=== PATIENT | male | born 1980 | race Caucasian/White ===

== ENCOUNTER 2019-01-04 22:41 | Inpatient (IN) | payer OTHER | END 2019-01-10 17:29 | disposition other institution (70) | LOC: YASAS 22:41 → Y6N 01-05 01:21 ==

== ENCOUNTER 2019-01-10 18:13 | Inpatient (IN) | payer OTHER ==
--- NOTE | 2019-01-10 21:15 | HP ---
[facility] Rehab Assess/Revision - Admission History Admitted to Rehab from: [facility] [address] [facility] Date of Admission to Rehab: - Findings Detox History & Physical reviewed: Yes Concur with findings: Yes Comments/Additional Findings: 38 years old male with a long history of heroin and alcohol dependence being admitted post detox in early remission. Patient w/ multiple detoxes w/ insignificant periods of sobriety. Hx of seizures, Hep. C, hypertension and depression. Inpatient Rehab Admission - Rehab Decision to Admit Inpatient rehab admission?: Yes - Initial Determination Are CD services needed?: Yes Free of communicable disease: Yes Not in need of hospitalization: Yes - Rehab Admission Criteria Previous failed treatment: Yes Poor recovery environment: Yes Comorbidities: Yes Lacks judgement: No Patient is meeting Inpatient Rehab admission criteria:: Yes
[2019-01-10] MEDS ORDERED: guaiFENesin 200 MG/10 ML 10 ML UNIT-DOSE CUPS PO PRN (21:26)
[2019-01-10] MEDS ORDERED: MAGNESIUM CITRATE 300 ML BOTTLE PO PRN (21:26)
[2019-01-10] MEDS ORDERED: LOPERAMIDE HCL 2 MG CAPSULE PO PRN (21:26)
[2019-01-10] MEDS ORDERED: MAGNESIUM HYDROX 2400MG/30ML ORAL SUSPENSION 30 ML CUP PO PRN (21:26)
[2019-01-10] MEDS ORDERED: P-EPHED 60MG/TRIPROLIDI 2.5MG TABLET PO PRN (21:26)
[2019-01-10] MEDS ORDERED: MENTHOL/PHENOL 1 EACH UD MM PRN (21:26)
[2019-01-10] MEDS: THIAMINE HCL 100 MG TABLET (FP) PO SCH (21:53)
[2019-01-10] MEDS: MELATONIN 5 MG TABLETS PO PRN (21:54)
[2019-01-10] MEDS: hydrOXYzine PAMOATE 25 MG CAPSULE (FP) PO PRN (21:55)
[2019-01-10] MEDS ORDERED: buPROPion HCL 75 MG TABLET PO SCH (22:00)
[2019-01-10] MEDS ORDERED: PHENobarbital 30 MG TABLET PO SCH (22:00)
[2019-01-10] MEDS: PHENobarbital 30 MG TABLET PO SCH (23:22)
[2019-01-10] MEDS: QUEtiapine FUMARATE 200 MG TABLET PO SCH (23:22)
[2019-01-10] MEDS: ACETAMINOPHEN 325 MG TABLET (FP) PO PRN (23:43)
[2019-01-11] MEDS ORDERED: METHADONE HCL 40 MG DISPERSABLE TABLET PO SCH (06:00)
[2019-01-11] MEDS ORDERED: METHADONE HCL 10 MG TABLET ONE (06:07)
[2019-01-11] MEDS ORDERED: METHADONE HCL 40 MG DISPERSABLE TABLET ONE (06:08)
[2019-01-11] MEDS: METHADONE 40 MG, METHADONE 30 MG PO SCH (07:05)
[2019-01-11] MEDS: ACETAMINOPHEN 325 MG TABLET (FP) PO PRN ×3 (07:08→19:26)
[2019-01-11] MEDS: NICOTINE 14 MG/24 HOURS TOPICAL PATCH TD SCH (09:38)
[2019-01-11] MEDS: PRENATAL VITAMINS W/ FOLIC ACID TABLET (FP) PO SCH (09:38)
[2019-01-11] MEDS: QUEtiapine FUMARATE 200 MG TABLET PO SCH ×2 (09:38→21:20)
[2019-01-11] MEDS: IBUPROFEN 400 MG TABLET (FP) PO PRN (09:39)
[2019-01-11] MEDS: PHENobarbital 30 MG TABLET PO SCH ×2 (09:41→21:20)
[2019-01-11] MEDS: ONDANSETRON 4 MG TABLET PO PRN ×2 (10:00→17:37)
[2019-01-11] MEDS: MAG HYDROX/AL HYDROX/SIMETH 30 ML UNIT-DOSE CUP PO PRN ×2 (12:54→19:26)
[2019-01-11] MEDS: hydrOXYzine PAMOATE 25 MG CAPSULE (FP) PO PRN ×2 (13:28→21:20)
[2019-01-11] MEDS: THIAMINE HCL 100 MG TABLET (FP) PO SCH (21:20)
[2019-01-11] MEDS: MELATONIN 5 MG TABLETS PO PRN (21:21)
[2019-01-12] MEDS ORDERED: METHADONE HCL 40 MG DISPERSABLE TABLET ONE (04:07)
[2019-01-12] MEDS ORDERED: METHADONE HCL 10 MG TABLET ONE (04:07)
[2019-01-12] MEDS: hydrOXYzine PAMOATE 25 MG CAPSULE (FP) PO PRN ×3 (06:44→17:19)
[2019-01-12] MEDS: METHADONE 40 MG, METHADONE 30 MG PO SCH (06:44)
[2019-01-12] MEDS: PRENATAL VITAMINS W/ FOLIC ACID TABLET (FP) PO SCH (10:19)
[2019-01-12] MEDS: QUEtiapine FUMARATE 200 MG TABLET PO SCH ×2 (10:19→17:19)
[2019-01-12] MEDS: NICOTINE 14 MG/24 HOURS TOPICAL PATCH TD SCH (10:20)
[2019-01-12] MEDS: PHENobarbital 30 MG TABLET PO SCH ×2 (10:22→21:15)
[2019-01-12] MEDS: ACETAMINOPHEN 325 MG TABLET (FP) PO PRN ×2 (10:24→15:03)
--- NOTE | 2019-01-12 10:49 | PN ---
[facility] Progress Note Note: Pt is a 38 y/o male admitted to rehab from [address] on 01/10/19 for heroin, Benzo,cocaine,alcohol k2, marijuana and on Methadone 70 mg po daily([facility]- [facility]). Pt is currently c/o w/s of nausea, vomiting,stomach cramps,body aches and anxiety. Reports he wants to see psych MD for readjustment of his meds. Pt reports hx lactose intolerance. Pt reports dry abrasions to both heels from shoes rubbing against skin because "I was walking a lot when i was on the street ". vital Signs - 24 hr 01/12/19 01/12/19 01/12/19 00:30 03:30 06:57 Temperature 97.5 F L Pulse Rate 77 Respiratory 18 18 18 Rate Blood Pressure 115/74 Alert o x 3 Nad Oob ambulating with steady gait Cardiac:s1 s2, rrr Lung:cta,corwin. Abdomen:soft,+bs,nt,nd Extremities/Skin:Full ROM. no edema; both heels with slight red areas of abrasions, dry, no drainage/pus noted. Plan:D/w Zonfran sl prn Robaxin 500 mg po tid prn for muscle spasms Warm tea as tolerated Lactaid milk with meals as needed Bacitracin ointment, apply to both heels as directed.
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
[2019-01-12] MEDS: METHOCARBAMOL 500 MG TABLET PO PRN ×2 (11:42→21:21)
[2019-01-12] MEDS: ONDANSETRON 4 MG TABLET PO PRN (11:43)
[2019-01-12] MEDS: BACITRACIN 15 GM TUBE TOPICAL OINTMENT TP SCH ×2 (12:14→21:14)
[2019-01-12] MEDS: MAG HYDROX/AL HYDROX/SIMETH 30 ML UNIT-DOSE CUP PO PRN (13:36)
[2019-01-12] MEDS: QUEtiapine FUMARATE 400 MG TABLET PO SCH (21:15)
[2019-01-12] MEDS: MELATONIN 5 MG TABLETS PO PRN (21:15)
[2019-01-12] MEDS: THIAMINE HCL 100 MG TABLET (FP) PO SCH (21:16)
[2019-01-13] MEDS ORDERED: METHADONE HCL 10 MG TABLET ONE (05:48)
[2019-01-13] MEDS ORDERED: METHADONE HCL 40 MG DISPERSABLE TABLET ONE (05:48)
[2019-01-13] MEDS: hydrOXYzine PAMOATE 25 MG CAPSULE (FP) PO PRN ×3 (06:30→18:15)
[2019-01-13] MEDS: METHADONE 40 MG, METHADONE 30 MG PO SCH (06:30)
[2019-01-13] MEDS: BACITRACIN 15 GM TUBE TOPICAL OINTMENT TP SCH ×2 (10:10→21:16)
[2019-01-13] MEDS: METHOCARBAMOL 500 MG TABLET PO PRN ×2 (10:15→21:19)
[2019-01-13] MEDS: NICOTINE 14 MG/24 HOURS TOPICAL PATCH TD SCH (10:15)
[2019-01-13] MEDS: PRENATAL VITAMINS W/ FOLIC ACID TABLET (FP) PO SCH (10:15)
[2019-01-13] MEDS: QUEtiapine FUMARATE 200 MG TABLET PO SCH ×2 (10:16→17:40)
[2019-01-13] MEDS: PHENobarbital 30 MG TABLET PO SCH ×2 (11:38→21:17)
[2019-01-13] MEDS: ACETAMINOPHEN 325 MG TABLET (FP) PO PRN (12:29)
[2019-01-13] MEDS: IBUPROFEN 400 MG TABLET (FP) PO PRN (14:47)
--- NOTE | 2019-01-13 15:57 | PN ---
[facility] Progress Note Note: Pt c/o lower back pain and wants analgesic pain rub. Vital Signs - 24 hr 01/13/19 01/13/19 01/13/19 00:30 03:30 07:22 Temperature 67.4 F L Pulse Rate 83 Respiratory 18 18 18 Rate Blood Pressure 109/79 A/P Lower back pain Analgesic balm apply to affected area as directed Lidocaine patch 5% apply as directed.
[2019-01-13] MEDS: LIDOCAINE 5% TOPICAL PATCH TP SCH (18:17)
[2019-01-13] MEDS: THIAMINE HCL 100 MG TABLET (FP) PO SCH (21:17)
[2019-01-13] MEDS: LIDOCAINE PATCH REMOVAL MC SCH (21:17)
[2019-01-13] MEDS: QUEtiapine FUMARATE 400 MG TABLET PO SCH (21:17)
[2019-01-13] MEDS: MELATONIN 5 MG TABLETS PO PRN (21:18)
[2019-01-13] MEDS: HALOPERIDOL 5 MG TABLET (FP) PO PRN (21:19)
[2019-01-13] MEDS: METHYL SALICYLATE/MENTHOL OINT 30 GM TUBE TP SCH (22:17)
[2019-01-14] MEDS ORDERED: METHADONE HCL 10 MG TABLET ONE (04:09)
[2019-01-14] MEDS ORDERED: METHADONE HCL 40 MG DISPERSABLE TABLET ONE (04:09)
[2019-01-14] MEDS: METHOCARBAMOL 500 MG TABLET PO PRN ×2 (06:50→21:19)
[2019-01-14] MEDS: hydrOXYzine PAMOATE 25 MG CAPSULE (FP) PO PRN ×2 (06:50→15:53)
[2019-01-14] MEDS: METHADONE 40 MG, METHADONE 30 MG PO SCH (06:51)
[2019-01-14] MEDS: PHENobarbital 30 MG TABLET PO SCH ×2 (09:56→21:19)
[2019-01-14] MEDS: QUEtiapine FUMARATE 200 MG TABLET PO SCH ×2 (09:56→17:30)
[2019-01-14] MEDS: PRENATAL VITAMINS W/ FOLIC ACID TABLET (FP) PO SCH (09:56)
[2019-01-14] MEDS: LIDOCAINE 5% TOPICAL PATCH TP SCH (09:57)
[2019-01-14] MEDS: NICOTINE 14 MG/24 HOURS TOPICAL PATCH TD SCH (09:57)
[2019-01-14] MEDS: BACITRACIN 15 GM TUBE TOPICAL OINTMENT TP SCH ×2 (09:58→21:17)
[2019-01-14] MEDS: IBUPROFEN 400 MG TABLET (FP) PO PRN ×2 (12:29→18:43)
[2019-01-14] MEDS: ACETAMINOPHEN 325 MG TABLET (FP) PO PRN (15:53)
[2019-01-14] MEDS: QUEtiapine FUMARATE 400 MG TABLET PO SCH (21:18)
[2019-01-14] MEDS: METHYL SALICYLATE/MENTHOL OINT 30 GM TUBE TP SCH (21:18)
[2019-01-14] MEDS: LIDOCAINE PATCH REMOVAL MC SCH (21:19)
[2019-01-14] MEDS: MELATONIN 5 MG TABLETS PO PRN (21:20)
[2019-01-14] MEDS: THIAMINE HCL 100 MG TABLET (FP) PO SCH (21:20)
[2019-01-14] MEDS: HALOPERIDOL 5 MG TABLET (FP) PO PRN (21:21)
[2019-01-15] MEDS ORDERED: METHADONE HCL 40 MG DISPERSABLE TABLET ONE (05:50)
[2019-01-15] MEDS ORDERED: METHADONE HCL 10 MG TABLET ONE (05:50)
[2019-01-15] MEDS: METHOCARBAMOL 500 MG TABLET PO PRN ×2 (06:49→21:11)
[2019-01-15] MEDS: hydrOXYzine PAMOATE 25 MG CAPSULE (FP) PO PRN ×3 (06:49→17:05)
[2019-01-15] MEDS: METHADONE 40 MG, METHADONE 30 MG PO SCH (06:49)
[2019-01-15] MEDS: QUEtiapine FUMARATE 200 MG TABLET PO SCH ×2 (09:30→17:05)
[2019-01-15] MEDS: PHENobarbital 30 MG TABLET PO SCH ×2 (09:30→21:09)
[2019-01-15] MEDS: PRENATAL VITAMINS W/ FOLIC ACID TABLET (FP) PO SCH (09:30)
[2019-01-15] MEDS: NICOTINE 14 MG/24 HOURS TOPICAL PATCH TD SCH (09:31)
[2019-01-15] MEDS: LIDOCAINE 5% TOPICAL PATCH TP SCH (09:31)
[2019-01-15] MEDS: IBUPROFEN 400 MG TABLET (FP) PO PRN ×2 (09:32→16:39)
[2019-01-15] MEDS: BACITRACIN 15 GM TUBE TOPICAL OINTMENT TP SCH ×2 (09:33→21:12)
[2019-01-15] MEDS: ACETAMINOPHEN 325 MG TABLET (FP) PO PRN (12:31)
[2019-01-15] MEDS: THIAMINE HCL 100 MG TABLET (FP) PO SCH (21:09)
[2019-01-15] MEDS: QUEtiapine FUMARATE 400 MG TABLET PO SCH (21:09)
[2019-01-15] MEDS: MELATONIN 5 MG TABLETS PO PRN (21:11)
[2019-01-15] MEDS: HALOPERIDOL 5 MG TABLET (FP) PO PRN (21:11)
[2019-01-15] MEDS: METHYL SALICYLATE/MENTHOL OINT 30 GM TUBE TP SCH (21:12)
[2019-01-15] MEDS: LIDOCAINE PATCH REMOVAL MC SCH (21:13)
[2019-01-16] MEDS ORDERED: METHADONE HCL 10 MG TABLET ONE (05:54)
[2019-01-16] MEDS ORDERED: METHADONE HCL 40 MG DISPERSABLE TABLET ONE (05:54)
[2019-01-16] MEDS: METHADONE 40 MG, METHADONE 30 MG PO SCH (06:26)
[2019-01-16] MEDS: METHOCARBAMOL 500 MG TABLET PO PRN ×2 (06:27→21:10)
[2019-01-16] MEDS: hydrOXYzine PAMOATE 25 MG CAPSULE (FP) PO PRN ×3 (06:27→17:27)
[2019-01-16] MEDS: NICOTINE 14 MG/24 HOURS TOPICAL PATCH TD SCH (09:50)
[2019-01-16] MEDS: LIDOCAINE 5% TOPICAL PATCH TP SCH (09:50)
[2019-01-16] MEDS: PRENATAL VITAMINS W/ FOLIC ACID TABLET (FP) PO SCH (09:50)
[2019-01-16] MEDS: QUEtiapine FUMARATE 200 MG TABLET PO SCH ×2 (09:50→17:27)
[2019-01-16] MEDS: PHENobarbital 30 MG TABLET PO SCH ×2 (09:50→21:08)
[2019-01-16] MEDS: BACITRACIN 15 GM TUBE TOPICAL OINTMENT TP SCH ×2 (09:51→21:11)
[2019-01-16] MEDS: NICOTINE POLACRILEX 2 MG GUM BUC PRN (09:54)
[2019-01-16] MEDS: IBUPROFEN 400 MG TABLET (FP) PO PRN ×2 (12:41→21:11)
[2019-01-16] MEDS: ACETAMINOPHEN 325 MG TABLET (FP) PO PRN (17:28)
[2019-01-16] MEDS: QUEtiapine FUMARATE 400 MG TABLET PO SCH (21:08)
[2019-01-16] MEDS: THIAMINE HCL 100 MG TABLET (FP) PO SCH (21:08)
[2019-01-16] MEDS: HALOPERIDOL 5 MG TABLET (FP) PO PRN (21:10)
[2019-01-16] MEDS: LIDOCAINE PATCH REMOVAL MC SCH (21:11)
[2019-01-16] MEDS: MELATONIN 5 MG TABLETS PO PRN (21:11)
[2019-01-16] MEDS: METHYL SALICYLATE/MENTHOL OINT 30 GM TUBE TP SCH (21:13)
[2019-01-17] MEDS ORDERED: METHADONE HCL 10 MG TABLET ONE (05:45)
[2019-01-17] MEDS ORDERED: METHADONE HCL 40 MG DISPERSABLE TABLET ONE (05:45)
[2019-01-17] MEDS: hydrOXYzine PAMOATE 25 MG CAPSULE (FP) PO PRN ×4 (06:42→21:13)
[2019-01-17] MEDS: METHADONE 40 MG, METHADONE 30 MG PO SCH (06:43)
[2019-01-17] MEDS: METHOCARBAMOL 500 MG TABLET PO PRN ×2 (06:43→21:13)
[2019-01-17] MEDS: BACITRACIN 15 GM TUBE TOPICAL OINTMENT TP SCH ×2 (11:16→21:11)
[2019-01-17] MEDS: PHENobarbital 30 MG TABLET PO SCH ×2 (11:17→21:12)
[2019-01-17] MEDS: PRENATAL VITAMINS W/ FOLIC ACID TABLET (FP) PO SCH (11:17)
[2019-01-17] MEDS: QUEtiapine FUMARATE 200 MG TABLET PO SCH ×2 (11:20→17:28)
[2019-01-17] MEDS: NICOTINE 14 MG/24 HOURS TOPICAL PATCH TD SCH (11:20)
[2019-01-17] MEDS: LIDOCAINE 5% TOPICAL PATCH TP SCH (11:21)
[2019-01-17] MEDS: IBUPROFEN 400 MG TABLET (FP) PO PRN ×2 (11:22→17:28)
[2019-01-17] MEDS: ACETAMINOPHEN 325 MG TABLET (FP) PO PRN (14:34)
[2019-01-17] MEDS: NICOTINE POLACRILEX 2 MG GUM BUC PRN (17:28)
[2019-01-17] MEDS: METHYL SALICYLATE/MENTHOL OINT 30 GM TUBE TP SCH (21:11)
[2019-01-17] MEDS: LIDOCAINE PATCH REMOVAL MC SCH (21:12)
[2019-01-17] MEDS: QUEtiapine FUMARATE 400 MG TABLET PO SCH (21:12)
[2019-01-17] MEDS: THIAMINE HCL 100 MG TABLET (FP) PO SCH (21:13)
[2019-01-17] MEDS: HALOPERIDOL 5 MG TABLET (FP) PO PRN (21:13)
[2019-01-17] MEDS: MELATONIN 5 MG TABLETS PO PRN (21:13)
[2019-01-18] MEDS ORDERED: METHADONE HCL 10 MG TABLET ONE (05:12)
[2019-01-18] MEDS ORDERED: METHADONE HCL 40 MG DISPERSABLE TABLET ONE (05:12)
[2019-01-18] MEDS ORDERED: METHADONE HCL 10 MG TABLET PO SCH (06:00)
[2019-01-18] MEDS: hydrOXYzine PAMOATE 25 MG CAPSULE (FP) PO PRN ×4 (06:34→21:12)
[2019-01-18] MEDS: METHOCARBAMOL 500 MG TABLET PO PRN ×2 (06:34→21:12)
[2019-01-18] MEDS: METHADONE 40 MG, METHADONE 30 MG PO SCH (06:34)
[2019-01-18] MEDS: QUEtiapine FUMARATE 200 MG TABLET PO SCH ×2 (10:00→17:20)
[2019-01-18] MEDS: BACITRACIN 15 GM TUBE TOPICAL OINTMENT TP SCH ×2 (10:00→21:10)
[2019-01-18] MEDS: PRENATAL VITAMINS W/ FOLIC ACID TABLET (FP) PO SCH (10:00)
[2019-01-18] MEDS: PHENobarbital 30 MG TABLET PO SCH ×2 (10:01→21:11)
[2019-01-18] MEDS: IBUPROFEN 400 MG TABLET (FP) PO PRN (10:01)
[2019-01-18] MEDS: NICOTINE 14 MG/24 HOURS TOPICAL PATCH TD SCH (10:02)
[2019-01-18] MEDS: LIDOCAINE 5% TOPICAL PATCH TP SCH (10:02)
--- NOTE | 2019-01-18 15:40 | PN ---
[facility] Progress Note Note: Pt reports he wants to be prescribed Klonopin because he takes it as well as his Phenobarbital. Pt told the nurse he is also on Gabapentin 500 mg po Q8H. Pt is currently on Phenobarbital 90 mg po bid. Pt has no Klonopin indicated in his home meds and no meds were posted on outside pharmacy when reviewed. Pt has been asked to provide staff with name and number of his prescriber and home pharmacy for verification but patient did not give any information. Pt was asked if he brought his Klonopin on admission but pt reports he "did not" and asked him where he had it and he replied "outside of here". Pt is a poor historian and uncooperative in providing information for verification of his medications. This machine sign writer reviewed pt's detox meds on and there was no klonopin recorded. Vital Signs - 24 hr 01/18/19 01/18/19 01/18/19 00:30 03:30 06:39 Temperature 97.8 F Pulse Rate 64 Respiratory 18 18 20 Rate Blood Pressure 120/84 Alert o x 3 vss oob ambulating with steady gait A/P Hx ADHD Seizure disorder(On medication) Anxiety Disorder s/p Detox Will follow up after pt furnishes pertinent information for verification. Repeat Phenobarbital level on 01/19/19 a.m. Monitor pt safety
[2019-01-18] MEDS: ACETAMINOPHEN 325 MG TABLET (FP) PO PRN (17:20)
[2019-01-18] MEDS: NICOTINE POLACRILEX 2 MG GUM BUC PRN (18:01)
[2019-01-18] MEDS: METHYL SALICYLATE/MENTHOL OINT 30 GM TUBE TP SCH (21:10)
[2019-01-18] MEDS: LIDOCAINE PATCH REMOVAL MC SCH (21:10)
[2019-01-18] MEDS: QUEtiapine FUMARATE 400 MG TABLET PO SCH (21:11)
[2019-01-18] MEDS: HALOPERIDOL 5 MG TABLET (FP) PO PRN (21:12)
[2019-01-18] MEDS: MELATONIN 5 MG TABLETS PO PRN (21:12)
[2019-01-18] MEDS: THIAMINE HCL 100 MG TABLET (FP) PO SCH (21:12)
[2019-01-19] MEDS ORDERED: METHADONE HCL 10 MG TABLET ONE (04:34)
[2019-01-19] MEDS ORDERED: METHADONE HCL 40 MG DISPERSABLE TABLET ONE (04:34)
[2019-01-19] MEDS: METHOCARBAMOL 500 MG TABLET PO PRN (07:26)
[2019-01-19] MEDS: hydrOXYzine PAMOATE 25 MG CAPSULE (FP) PO PRN (07:26)
[2019-01-19] MEDS: METHADONE 40 MG, METHADONE 30 MG PO SCH (07:26)
[2019-01-19 07:35] VITALS: TEMP 97.6
[2019-01-19] MEDS: PRENATAL VITAMINS W/ FOLIC ACID TABLET (FP) PO SCH (09:58)
[2019-01-19] MEDS: PHENobarbital 30 MG TABLET PO SCH ×2 (09:58→22:06)
[2019-01-19] MEDS: QUEtiapine FUMARATE 200 MG TABLET PO SCH ×2 (09:58→18:55)
[2019-01-19] MEDS: LIDOCAINE 5% TOPICAL PATCH TP SCH (09:58)
[2019-01-19] MEDS: NICOTINE 14 MG/24 HOURS TOPICAL PATCH TD SCH (09:59)
[2019-01-19] MEDS: NICOTINE POLACRILEX 2 MG GUM BUC PRN (10:01)
[2019-01-19] MEDS: BACITRACIN 15 GM TUBE TOPICAL OINTMENT TP SCH ×2 (10:02→22:06)
[2019-01-19] MEDS ORDERED: LORazepam 2 MG/ML SDV VIAL ONE (12:15)
[2019-01-19] MEDS ORDERED: LORazepam 2 MG/ML SDV VIAL IM ONE (12:17)
--- NOTE | 2019-01-19 12:27 | PN ---
[facility] Progress Note (SOAP) Subjective: Nurse Called this provider to report that patient was having a seizure. Nurse reports pt was found on the floor by his room door. Saw pt on the floor face up and blinked eyes when called. No movements or activity noted at the time. About 5 minutes later after arrival and patient was helped up to a chair , pt had another episode of generalized shaking of body with blinking of eyes while sitting on the chair. There was no noted post ictal stage, no urinary loss, no rigidity, no foaming/drooling from the mouth on both episodes. No LOC at any episode. Pt is s/p detox from Heroin and alcohol admitted to rehab on 01/10/19 after completing detox on . Pt has a Hx of Seizure disorder and on Phenobarbital 90 mg po bid,last received this morning; Hx of ADHD and Anxiety. Objective: 01/19/19 12:36 Vital Signs - 24 hr 01/19/19 01/19/19 01/19/19 00:30 03:30 07:34 Temperature 97.6 F Pulse Rate 79 Respiratory 18 18 18 Rate Blood Pressure 129/86 01/19/19 12:12 Temperature Pulse Rate 71 Respiratory 18 Rate Blood Pressure 159/94 Repeat Phenobarbital level pending Pulse Ox:96% Room Air(no SOB) General:Alert ox 3 and communicative with staff Cardiac: s1 s2, rrr Lungs:cta,corwin., no wheeze, or rhonchi abdomen:soft, +bs, nt,nd Extremities:No edema. Healing scars, dry, no drainage on both heel sites(seen on admission from shoe blisters per patient) Active Medications Generic Name Dose Route Start Last Admin Trade Name Freq PRN Reason Stop Dose Admin Acetaminophen 650 mg 01/10/19 21:26 01/18/19 17:20 Tylenol - PO 650 mg Q4H PRN Administration FEVER Al Hydroxide/Mg Hydroxide 30 ml 01/10/19 21:26 01/12/19 13:36 Mylanta Oral Suspension - PO 30 ml Q6H PRN Administration DYSPEPSIA Bacitracin 1 applic 01/12/19 12:15 01/19/19 10:02 Bacitracin - TP 1 applic BID LEONELA Administration Bupropion HCl 300 mg 01/11/19 10:00 01/19/19 09:58 Wellbutrin Xl - PO 300 mg DAILY LEONELA Administration Eucalyptus/Menthol/Phenol/Sorbitol 1 each 01/10/19 21:26 Cepastat Lozenge - MM Q4H PRN SORE THROAT Guaifenesin 10 ml 01/10/19 21:26 Robitussin - PO Q6H PRN COUGH Haloperidol 5 mg 01/12/19 11:36 01/18/19 21:12 Haldol - PO 5 mg HS PRN Administration AGITATION Hydroxyzine Pamoate 25 mg 01/10/19 21:26 01/19/19 07:26 Vistaril - PO 25 mg Q4H PRN Administration AGITATION Ibuprofen 400 mg 01/10/19 21:26 01/18/19 10:01 Motrin - PO 400 mg Q6H PRN Administration Pain Level 4-6 Lidocaine 1 patch 01/13/19 16:00 01/19/19 09:58 Lidoderm Patch - TP 1 patch DAILY LEONELA Administration Loperamide HCl 4 mg 01/10/19 21:26 Imodium - PO Q6H PRN DIARRHEA Magnesium Citrate 300 ml 01/10/19 21:26 Citroma - PO Q48H PRN CONSTIPATION Magnesium Hydroxide 30 ml 01/10/19 21:26 Milk Of Magnesia - PO DAILY PRN CONSTIPATION Melatonin 5 mg 01/10/19 22:00 01/18/19 21:12 Melatonin PO 5 mg HS PRN Administration INSOMNIA Methadone HCl 40 mg/ Methadone 70 mg 01/18/19 06:00 01/19/19 07:26 HCl 30 mg PO 01/24/19 05:59 70 mg DAILY@0600 LEONELA Administration Methocarbamol 500 mg 01/12/19 10:34 01/19/19 07:26 Robaxin - PO 500 mg TID PRN Administration MUSCLE SPASMS Methyl Salicylate 1 applic 01/13/19 22:00 01/18/19 21:10 Syed-Herrera - TP 1 applic HS LEONELA Administration Miscellaneous 1 each 01/13/19 22:00 01/18/19 21:10 Lidoderm Patch Removal MC 1 each DAILY@2200 LEONELA Administration Nicotine 14 mg 01/11/19 10:00 01/19/19 09:59 Nicoderm Patch - TD 14 mg DAILY LEONELA Administration Nicotine Polacrilex 2 mg 01/10/19 21:26 01/19/19 10:01 Nicorette Gum - BUC 2 mg Q2H PRN Administration NICOTINE REPLACEMENT RX Ondansetron HCl 4 mg 01/10/19 21:27 01/12/19 11:43 Zofran - PO 4 mg Q6H PRN Administration NAUSEA AND/OR VOMITING Phenobarbital 90 mg 01/17/19 22:00 01/19/19 09:58 Phenobarbital - PO 90 mg BID LEONELA Administration Multivit/Folic Acid/Iron 1 tab 01/11/19 10:00 01/19/19 09:58 Vitamins (Sjr) - PO 1 tab DAILY LEONELA Administration Pseudoephedrine/Triprolidine 1 combo 01/10/19 21:26 Actifed - PO TID PRN NASAL CONGESTION Quetiapine Fumarate 400 mg 01/12/19 22:00 01/18/19 21:11 Seroquel - PO 400 mg HS LEONELA Administration Quetiapine Fumarate 200 mg 01/12/19 17:00 01/19/19 09:58 Seroquel - PO 200 mg BID@1000,1700 LEONELA Administration Thiamine HCl 100 mg 01/10/19 22:00 01/18/19 21:12 Vitamin B1 - PO 100 mg HS LEONELA Administration Pt is Alert,verbal and responded/joined in communications. Able to assist staff/self to sitting then standing position and to chair Upper extremity and feet tremors, no rigidity of muscles noted. No post ictal phase noted Assessment: 01/19/19 12:38 R/o suspected seizure episode Patient on the floor, unwitnessed episode Plan: Transfer to [facility] ER for evaluation, treatment and clearance. Report given to Dr. Christianson. Protocol #1 ordered Ativan 2 mg inj. I.M x 1 given
[2019-01-19 12:48] VITALS: BP 159/94
--- NOTE | 2019-01-19 15:57 | PN ---
[facility] Progress Note Note: Pt was seen by his counselor today at about 11:50 a.m today to discuss aftercare plans(Please see [facility] counselor note by Roslyn Marroquin @11:56) below: Phone Contact: OSCAR spoke with a counselor from [facility] where patient was last placed in regards of patient being able to return there for treatment. OSCAR was informed that patient is not welcome to return to the program due to a number of concern. Patient was caught smoking marijuana on the premises and for a number of other issues, Patient may not return. 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 OSCAR was also informed that patient Hep C medication is currently at [facility] located at [address] [place] [address]. Initialized on 01/19/19 11:56 - END OF NOTE Pt does not appear to be in compliant with any of his treatments and appears to go from one prescriber to another and unable to specify his current medical treatment modalities. Pt will speak to the counselor to plan for a safe discharge after rehab treatment .
[2019-01-19 16:30] VITALS: PULSE 96
[2019-01-19] MEDS: LIDOCAINE PATCH REMOVAL MC SCH (22:06)
[2019-01-19] MEDS: METHYL SALICYLATE/MENTHOL OINT 30 GM TUBE TP SCH (22:06)
[2019-01-19] MEDS: QUEtiapine FUMARATE 400 MG TABLET PO SCH (22:06)
[2019-01-19] MEDS: THIAMINE HCL 100 MG TABLET (FP) PO SCH (22:07)
== END 2019-01-19 23:17 | disposition short-term general hospital (02) | DRG 772 ==
LOC: YASAS 18:13 → Y5N 18:14
PROVIDERS: ADMIT Neuromusculoskeletal Medicine & OMM; ATTEND Neuromusculoskeletal Medicine & OMM
PROC: HZ42ZZZ Group Counseling for Substance Abuse Treatment, Cognitive-Behavioral (ICD-10-PCS; principal; 2019-01-10)
DX: F11.20 Opioid dependence, uncomplicated (principal); F10.20 Alcohol dependence, uncomplicated; F17.210 Nicotine dependence, cigarettes, uncomplicated; F32.9 Major depressive disorder, single episode, unspecified; F43.10 Post-traumatic stress disorder, unspecified; F90.9 Attention-deficit hyperactivity disorder, unspecified type; F19.280 Other psychoactive substance dependence with psychoactive substance-induced anxiety disorder; F19.282 Other psychoactive substance dependence with psychoactive substance-induced sleep disorder; F41.9 Anxiety disorder, unspecified; G40.802 Other epilepsy, not intractable, without status epilepticus; M54.5 Low back pain; I10 Essential (primary) hypertension; K74.60 Unspecified cirrhosis of liver; Z59.0 Homelessness
CPT/HCPCS: 36415; 80184

== ENCOUNTER 2019-01-19 12:51 | Inpatient (IN) | payer OTHER ==
[2019-01-19] MEDS ORDERED: LORazepam 2 MG/ML SDV VIAL ONE ×2 (13:22→14:27)
--- NOTE | 2019-01-19 14:15 | PDOC ---
History of Present Illness - General Chief Complaint: Seizure Stated Complaint: SEIZURE Time Seen by Provider: 01/19/19 13:33 History Source: Patient Exam Limitations: No Limitations - History of Present Illness Initial Comments: 01/19/19 14:16 Philip Rios is a 38yM w PMHx polysubstance abuse (cocaine, marijuana, opioids, alcohol), seizure, hepatitis C cirrhosis, latent tuberculosis presenting w seizure from [facility]. Pt found by nurses on floor w shaking episode x2 while in rehab for heroin. Pt given 5 valium by EMS for seizure activity on way to ED. Pt denies memory of seizure activity episodes, can't rule out head trauma. Endorsed cocaine and marijuana use 2d ago. Last drink 10d ago, previously drinking 12 beers daily. Pt was admitted to [facility] 2 weeks ago on 01/05 for heroin. Currently complaining of generalized body flashes and tremors. Denies fever, headache, cough, vomiting, SOB, chest/AB pain, urinary/bowel movement changes Past History - Past Medical History Allergies/Adverse Reactions: Allergies Allergy/AdvReac Type Severity Reaction Status Date / Time promethazine HCl Allergy Unknown Swelling Verified 01/06/14 17:02 [From Phenergan] prochlorperazine edisylate Allergy Verified 01/06/14 17:02 [From Compazine] prochlorperazine maleate Allergy Verified 01/06/14 17:02 [From Compazine] trazodone Allergy Swelling Verified 01/06/14 17:02 Home Medications: Ambulatory Orders Bupropion HCl [Wellbutrin -] 100 mg PO BID 01/04/19 Gabapentin [Neurontin -] 300 mg PO Q8H 01/04/19 Phenobarbital 100 mg PO BID 01/04/19 Quetiapine Fumarate [Seroquel -] 400 mg PO DAILY MDD 200 mg 01/04/19 Aspirin 81 mg PO DAILY 01/19/19 Benztropine Mesylate [Cogentin -] 0.5 mg PO BID 01/19/19 Clonazepam [Klonopin] 1 mg PO TID 01/19/19 Gabapentin [Neurontin] 300 mg PO TID 01/19/19 Haloperidol [Haldol -] 5 mg PO DAILY 01/19/19 Methylphenidate HCl [Methylphenidate ER] 10 mg PO BID 01/19/19 Methadone [Dolophine -] 30 mg PO DAILY 01/20/19 Methadone [Dolophine -] 40 mg PO DAILY 01/20/19 Anemia: No Asthma: No Cancer: No Cardiac Disorders: No CVA: No COPD: No CHF: No Diabetes: No GI Disorders: No Disorders: No HTN: Yes Hypercholesterolemia: No Kidney Stones: No Liver Disease: No Seizures: Yes Thyroid Disease: No - Surgical History Abdominal Surgery: No Appendectomy: No Cardiac Surgery: No Cholecystectomy: No Lung Surgery: No Neurologic Surgery: No Orthopedic Surgery: No - Reproductive History Testicular Surgery: No - Psycho Social/Smoking Cessation Hx Smoking Status: Yes Smoking History: Current every day smoker Have you smoked in the past 12 months: Yes Number of Cigarettes Smoked Daily: 20 Cigars Per Day: 0 Information on smoking cessation initiated: No 'Breaking Loose' booklet given: 01/04/19 Hx Alcohol Use: Yes Drug/Substance Use Hx: Yes (polysubstance) Substance Use Type: Alcohol, Tranquilizers Hx Substance Use Treatment: Yes Review of Systems - Review of Systems Constitutional: No: Chills, Fever HEENTM: No: Eye Pain, Nose Pain, Throat Pain, Mouth Pain Respiratory: No: Cough, Shortness of Breath Cardiac (ROS): No: Chest Pain, Palpitations, Syncope ABD/GI: No: Abdominal Distended, Constipated, Diarrhea, Nausea, Vomiting : No: Burning, Dysuria, Discharge, Flank Pain, Hematuria Musculoskeletal: No: Back Pain, Joint Pain, Muscle Pain, Muscle Weakness Integumentary: No: Bruising, Flushing, Lesions Neurological: Yes: Tremors. No: Headache, Numbness, Tingling Psychiatric: No: Anxiety, Depression Endocrine: No: Excessive Sweating, Flushing, Intolerance to Cold, Intolerance to Heat Hematologic/Lymphatic: No: Anemia, Blood Clots *Physical Exam - Vital Signs Last Vital Signs Temp Pulse Resp BP Pulse Ox 98 F 97 H 18 124/82 98 01/19/19 12:54 01/19/19 12:54 01/19/19 12:54 01/19/19 12:54 01/19/19 12:54 - Physical Exam General Appearance: Yes: Nourished, Appropriately Dressed, Mild Distress HEENT: positive: EOMI, LIBBY, Normal Voice, Hearing Grossly Normal, Other (no tongue lac). negative: Scleral Icterus (R), Scleral Icterus (L), Nasal Congestion, Rhinorrhea Respiratory/Chest: positive: Lungs Clear, Normal Breath Sounds. negative: Chest Tender, Respiratory Distress, Crackles, Rales, Rhonchi, Stridor, Wheezing Cardiovascular: positive: Regular Rhythm, S1, S2, Tachycardia. negative: Edema , Murmur Gastrointestinal/Abdominal: positive: Normal Bowel Sounds, Tender (mildly tender epigastric region), Flat, Soft. negative: Organomegaly Musculoskeletal: positive: Normal Inspection Extremity: positive: Normal Capillary Refill, Other (corwin mild hand tremors, +3 radial pulses corwin) Integumentary: positive: Normal Color. negative: Rash, Bruising Neurologic: positive: automatic washer mechanic II-XII NML intact, Fully Oriented, Alert (sleepy (10 min post seizure)), Normal Mood/Affect, Normal Response, Responsive. negative: Sensory Deficit, Confused, Disoriented ED Treatment Course - LABORATORY CBC & Chemistry Diagram: 01/19/19 13:30 01/19/19 13:30 - ADDITIONAL ORDERS Additional order review: Laboratory Results 01/19/19 13:25 POC Glucometer 80 01/19/19 13:25 POC Glucometer 80 - RADIOLOGY Radiology Studies Ordered: Category Date Time Status HEAD CT WITHOUT CONTRAST [CT] Stat CT Scan 01/19/19 13:33 Ordered Medical Decision Making - Medical Decision Making Medical Decision Making: Witnessed 2 minute seizure activity 130p, given 2mg ativan. 30s activity 145p, 1min activity 230p given 2mg ativan, 30s activity 245p, 30s seizure 317p, 330p, 415p. 300 gabapentin, 20mg/kg phenobarbital, activity resolved with flushing line. All four extremity tremors, w flexed arms, eyes closed/ rolled back, +LOC , no post-ictal period 1L NS CT head shows no acute bleed/infarct. CBC CMP trop lipase UA Utox coags lactate AST 70 ALT 137 neg trop, 2 lactate CBC, coags, UA, glucose normal pending utox, lipase EKG shows sinus tachycardia, HR 107, QTc 429, no ST changes Philip Rios is a 38yM w PMHx polysubstance abuse (cocaine, marijuana, opioids, alcohol), seizure, hepatitis C cirrhosis, latent tuberculosis presenting w seizure activity from [facility]. A&O x3, neuro intact. Witnessed 5 seizure activities within 2hrs in ED. All four extremity tremors, w flexed arms, eyes closed/ rolled back, +LOC, no ost ictal period. Given 4 ativan, 1L NS, 20mg/kg phenobarb, 300 gabapentin, line flushes with every activity episode. CT head shows no acute bleed/infarct. Elevated AST, ALT. Low concern ACS w neg trop, EKG sinus tachycardia. Elevated LFTs Ddx: Likely pseudoseizure (no post-ictal period) vs seizure d/t alcohol/ substance abuse vs metabolic (unlikely w normal electrolytes, glucose) vs infectious (unlikely since afebrile, normal WBC). Consulted Dr Manley neuro, agreed with plan, will see inpatient Admitted med/surg Dr Hernadez for seizure in setting of substance abuse hx 01/19/19 17:36 Pt becoming more agitated, asking for valium to stop seizures despite not having seizure for past hr. Pt threatens to pull lines if inpatient team does not give valium. 630p Pt pulled out IV. Reinserted R EJ PIV. Discharge - Discharge Information Problems reviewed: Yes Clinical Impression/Diagnosis: Seizure disorder, Substance abuse Condition: Fair - Admission Yes - Follow up/Referral - Patient Discharge Instructions - Post Discharge Activity
--- NOTE | 2019-01-19 14:18 | PDOC ---
Documentation entered by Meredith Bartlett SCRIBE, acting as scribe for Adri Christianson DO. Adri Christianson DO: This documentation has been prepared by the [employer] Adrianna, SCRIBE, under my direction and personally reviewed by me in its entirety. I confirm that the documentation accurately reflects all work, treatment, procedures, and medical decision making performed by me. Attending Attestation - Resident Resident Name: AdolfoThomas - ED Attending Attestation I have performed the following: I have examined & evaluated the patient, The case was reviewed & discussed with the resident, I agree w/resident's findings & plan, Exceptions are as noted - HPI HPI: The patient is a 38 year old male, with a significant PMH of heroin, EtOH, cocaine, and marijuana dependence (currently undergoing detox at [facility]), seizures, Hepatitis C, latent tuberculosis, and depression, who presents to the ED BIBA from [facility] for evaluation of multiple seizures today. As per [facility] nurse, patient had 2 unwitnessed seizures today. He was found on the floor. Patient is unsure if he hit his head. En route to the ED, patient seized. He was given valium prior to arrival. In ED, patient seized two more times, and was given Ativan following each episode. He admits to cocaine and marijuana use over the past week. Patient complains of a headache and tremors while in the ED, and notes he feels as if he is withdrawing. Allergies: Promethazine HCL, prochlorperazine edisylate, prochlorperazine maleate, trazodone Surgical History: None reported Social History: Heroin and EtOH dependence (currently undergoing detox at [facility]). PCP: NOS Neurologist: NOS - Physicial Exam PE: Constitutional: Awake, alert, oriented. No acute distress. Head: Normocephalic. Atraumatic Eyes: PERRL. EOMI. Conjunctivae are not pale. ENT: Mucous membranes are moist and intact. Posterior pharynx without exudates or erythema. Uvula midline. Neck: Supple. Full ROM. No lymphadenopathy. Cardiovascular: Regular rate. Regular rhythm. S1, S2 regular. Distal pulses are 2+ and symmetric. Pulmonary/Chest: No evidence of respiratory distress. Clear to auscultation bilaterally No wheezing, rales or rhonchi. Abdominal: Soft and nondistended. There is no tenderness. No rebound, guarding or rigidity. No organomegaly. No palpable masses. Good bowel sounds. Back: No CVA tenderness. Musculoskeletal: No edema. No cyanosis. No clubbing. Full range of motion in all extremities. Nocalf tenderness. Radial/pedal pulses are intact and 2+ bilaterally Skin: Skin is warm and dry. No petechiae. No purpura. Neurological: Alert and oriented to person, place, and time. Cranial nerves II -XII are grossly intact. Normal speech. Strength is grossly symmetric. No sensory deficits. Psychiatric: Good eye contact. Normal interaction, affect and behavior. - Critical Care Time Total Critical Care Time: 35 Critical Care Statement: The care of this patient involved high complexity decision making to prevent further life threatening deterioration of the patient 's condition and/or to evaluate & treat vital organ system(s) failure or risk of failure. - Medical Decision Making 01/19/19 14:15 I, Dr. Adri Christianson, DO, attest that this document has been prepared under my direction and personally reviewed by me in its entirety. I further attest, that it accurately reflects all work, treatment, procedures and medical decision -making performed by me. a/p: 38yo male sent from [facility] for eval of poss seizure activity -pt was found by nurses on the floor with a "shaking episode" -pt per [facility] had 2 of the episodes while in rehab for heroin -pt arrives via ambulance - given valium 5 bellhop captain by medics for seizure activity -pt arrives aaox3 -pt w 2 "seizure" activities in the ED- b/l shaking, however guarding on exam with limbs ? seizure vs ?pseudoseizure -pt did receive ativan 2mg iv in the ED -labs sent, head ct, ekg -pt will need neuro eval and admission given 5 poss seizures in 2 hour timeframe -pt did return to the baseline without a post-ictal phase in the ED 01/19/19 14:[address] Hernadez who accepts pt to service 01/19/19 15:29 pt with multiple shaking episodes in the ED 2 calls placed to neurology will reload phenobarb, 2nd dose of ativan given most of hte shaking episodes in the ED have resolved with flushing his IV saline line 01/19/19 15:39 no elevated wbc, no elevated lactate 01/19/19 16:26 pt again with shaking episodes - again shaking episodes resolve with flushing saline line as it gets kinked during shaking episodes case discussed with Dr. Manley who will see patient in consult Heart Score/ECG Review - ECG Intrepretation Comment:: 01/19/19 15:39 sinus tach at 107, nl axis, nl interval, no acute st/t wave findings
[2019-01-19 14:22] LABS: INR 1.03 (0.83-1.09); PROTHROMBIN TIME (PATIENT) 12.1 SEC (9.7-13.0)
[2019-01-19 14:25] LABS: ACTIVATED PTT 32.3 SECONDS (25.2-36.5)
[2019-01-19] MEDS ORDERED: SODIUM CHLORIDE 0.9% 1000 ML INFUS.BAG IV ONE (14:25)
[2019-01-19 14:34] LABS: ALBUMIN 3.8 g/dl (3.4-5.0); ALK PHOS 69 U/L (45-117); ANION GAP 7 MMOL/L (8-16); BASO % 0.9 % (0-2.0); BILIRUBIN,TOTAL 0.4 mg/dL (0.2-1); BLOOD UREA NITROGEN 7.9 mg/dL (7-18); CALCIUM 8.9 mg/dL (8.5-10.1); CHLORIDE 107 mmol/L (98-107); CO2 29 mmol/L (21-32); CREATININE 0.5 mg/dL (0.55-1.3); EOS % 3.4 % (0-4.5); GLUCOSE,RANDOM 78 mg/dL (74-106); HEMATOCRIT 42.8 % (35.4-49); HEMOGLOBIN 14.4 GM/dL (11.7-16.9); MCH 29.5 pg (25.7-33.7); MCHC 33.7 g/dl (32.0-35.9); MEAN CELL VOLUME 87.6 fl (80-96); MEAN PLT VOLUME 7.5 fl (7.5-11.1); MONO % 6.3 % (3.8-10.2); NEUT % 57.4 % (42.8-82.8); PLATELET COUNT 243 K/MM3 (134-434); POTASSIUM 4.2 mmol/L (3.5-5.1); RBC 4.88 M/mm3 (4.00-5.60); RDW 14.7 % (11.9-15.9); SGOT/AST 70 U/L (15-37); SGPT/ALT 137 U/L (13-61); SODIUM 143 mmol/L (136-145); TOT PROT 6.9 g/dl (6.4-8.2); WHITE BLOOD COUNT 5.2 K/mm3 (4.0-10.0)
[2019-01-19 15:21] LABS: PH,URINE 7.5 (5.0-8.0); URINE APPEARANCE CLEAR; URINE BILIRUBIN NEGATIVE (NEGATIVE); URINE COLOR YELLOW; URINE GLUCOSE (UA) NEGATIVE (NEGATIVE); URINE KETONE NEGATIVE (NEGATIVE); URINE LEUK ESTERASE NEGATIVE (NEGATIVE); URINE NITRITE NEGATIVE (NEGATIVE); URINE PROTEIN NEGATIVE (NEGATIVE); URINE UROBILINOGEN 0.2 mg/dL (0.2-1.0)
[2019-01-19] MEDS ORDERED: GABAPENTIN 300 MG CAPSULE (FP) PO ONE (15:27)
[2019-01-19] MEDS ORDERED: PHENobarbital SODIUM 65 MG/1 ML VIAL IVPUSH ONE ×2 (15:28→16:25)
[2019-01-19 16:04] LABS: COCAINE, UR NEGATIVE ng/ml (CUTOFF=300); OPIATES, URI NEGATIVE ng/ml (CUTOFF=300); PHENCYCLIDINE,URINE NEGATIVE ng/ml (CUTOFF=25); URINE AMPHETAMINES NEGATIVE ng/ml (CUTOFF=500)
[2019-01-19] MEDS ORDERED: GABAPENTIN 100 MG CAPSULE (FP) ONE (16:16)
[2019-01-19 16:28] LABS: METHADONE, UR POSITIVE ng/ml (CUTOFF=300); URINE BARBITURATES POSITIVE ng/ml (CUTOFF=200); URINE BENZODIAZEPINES POSITIVE ng/ml (CUTOFF=200)
[2019-01-19] MEDS ORDERED: SODIUM CHLORIDE IV ONE ×2 (16:30)
[2019-01-19] MEDS ORDERED: PHENOBARBITAL IV ONE ×2 (16:30)
--- NOTE | 2019-01-19 19:29 | HP ---
Admitting History and Physical - Primary Care Physician PCP: Maurilio Henradez - Admission History of Present Illness: 38 year old male, with a significant PMH of heroin, EtOH, cocaine, and marijuana dependence (currently undergoing detox at [facility]), seizures, Hepatitis C, latent tuberculosis, and depression, who presents to the ED BIBA from [facility] for evaluation of multiple seizures today. As per [facility] nurse , patient had 2 unwitnessed seizures today. He was found on the floor. Patient is unsure if he hit his head. En route to the ED, patient seized. He was given valium prior to arrival. In ED, patient seized two more times, and was given Ativan following each episode. He admits to cocaine and marijuana use over the past week. Patient complains of a headache and tremors while in the ED, and notes he feels as if he is withdrawing. 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 Psych: Yes: Addictions, Anxiety, Depression - Smoking History Smoking history: Current every day smoker Have you smoked in the past 12 months: Yes Aproximately how many cigarettes per day: 20 - Alcohol/Substance Use Hx Alcohol Use: Yes History of Substance Use: reports: Prescription, Tranquilizers - Social History ADL: Independent Occupation: unemployed Home Medications - Allergies Allergies/Adverse Reactions: Allergies Allergy/AdvReac Type Severity Reaction Status Date / Time promethazine HCl Allergy Unknown Swelling Verified 01/06/14 17:02 [From Phenergan] prochlorperazine edisylate Allergy Verified 01/06/14 17:02 [From Compazine] prochlorperazine maleate Allergy Verified 01/06/14 17:02 [From Compazine] trazodone Allergy Swelling Verified 01/06/14 17:02 - Home Medications Home Medications: Ambulatory Orders Bupropion HCl [Wellbutrin -] 100 mg PO BID 01/04/19 Gabapentin [Neurontin -] 300 mg PO Q8H 01/04/19 Phenobarbital 100 mg PO BID 01/04/19 Quetiapine Fumarate [Seroquel -] 400 mg PO DAILY MDD 200 mg 01/04/19 Aspirin 81 mg PO DAILY 01/19/19 Benztropine Mesylate [Cogentin -] 0.5 mg PO BID 01/19/19 Clonazepam [Klonopin] 1 mg PO TID 01/19/19 Gabapentin [Neurontin] 300 mg PO TID 01/19/19 Haloperidol [Haldol -] 5 mg PO DAILY 01/19/19 Methylphenidate HCl [Methylphenidate ER] 10 mg PO BID 01/19/19 Methadone [Dolophine -] 30 mg PO DAILY 01/20/19 Methadone [Dolophine -] 40 mg PO DAILY 01/20/19 Physical Examination Vital Signs: Vital Signs Temperature 98 F 01/19/19 12:54 Pulse Rate 97 H 01/19/19 12:54 Respiratory Rate 18 01/19/19 12:54 Blood Pressure 124/82 01/19/19 12:54 O2 Sat by Pulse Oximetry (%) 98 01/19/19 12:54 Constitutional: Yes: No Distress HENT: Yes: Atraumatic Neck: Yes: Supple Cardiovascular: Yes: Regular Rate and Rhythm Respiratory: Yes: CTA Bilaterally Gastrointestinal: Yes: Normal Bowel Sounds Extremities: Yes: WNL Neurological: Yes: Alert, Oriented Labs: CBC, BMP 01/19/19 13:30 01/19/19 13:30 Problem List - Problems (1) Alcohol dependence Assessment/Plan: detox consult prn ativan for withdrawl Code(s): F10.20 - ALCOHOL DEPENDENCE, UNCOMPLICATED (2) Nicotine dependence Code(s): F17.200 - NICOTINE DEPENDENCE, UNSPECIFIED, UNCOMPLICATED (3) Opioid dependence Code(s): F11.20 - OPIOID DEPENDENCE, UNCOMPLICATED (4) Substance abuse Code(s): F19.10 - OTHER PSYCHOACTIVE SUBSTANCE ABUSE, UNCOMPLICATED (5) Substance-induced sleep disorder Code(s): F19.982 - OTH PSYCHOACTIVE SUBSTANCE USE, UNSP W SLEEP DISORDER (6) Seizure disorder Assessment/Plan: continue meds as per neuro Code(s): G40.909 - EPILEPSY, UNSP, NOT INTRACTABLE, WITHOUT STATUS EPILEPTICUS (7) Bipolar disorder Assessment/Plan: psych eval Code(s): F31.9 - BIPOLAR DISORDER, UNSPECIFIED Assessment/Plan Laboratory Tests 01/19/19 01/19/19 01/19/19 13:25 13:30 13:30 WBC 5.2 RBC 4.88 Hgb 14.4 Hct 42.8 MCV 87.6 MCH 29.5 MCHC 33.7 RDW 14.7 Plt Count 243 MPV 7.5 Absolute Neuts (auto) 3.0 Neutrophils % 57.4 D Lymphocytes % 32.0 D Monocytes % 6.3 Eosinophils % 3.4 Basophils % 0.9 Nucleated RBC % 0 PT with INR 12.10 INR 1.03 PTT (Actin FS) 32.3 Sodium Potassium Chloride Carbon Dioxide Anion Gap BUN Creatinine Est GFR (CKD-EPI)AfAm Est GFR (CKD-EPI)NonAf POC Glucometer 80 Random Glucose Lactic Acid Calcium Total Bilirubin AST ALT Alkaline Phosphatase Creatine Kinase Troponin I Total Protein Albumin Urine Color Urine Appearance Urine pH Ur Specific [place] Urine Protein Urine Glucose (UA) Urine Ketones Urine Blood Urine Nitrite Urine Bilirubin Urine Urobilinogen Ur Leukocyte Esterase Opiates Screen Methadone Screen Barbiturate Screen Phencyclidine Screen Ur Amphetamines Screen MDMA (Ecstasy) Screen Benzodiazepines Screen Cocaine Screen U Marijuana (THC) Screen 01/19/19 01/19/19 01/19/19 13:30 13:30 14:30 WBC RBC Hgb Hct MCV MCH MCHC RDW Plt Count MPV Absolute Neuts (auto) Neutrophils % Lymphocytes % Monocytes % Eosinophils % Basophils % Nucleated RBC % PT with INR INR PTT (Actin FS) Sodium 143 Potassium 4.2 Chloride 107 Carbon Dioxide 29 Anion Gap 7 L BUN 7.9 Creatinine 0.5 L Est GFR (CKD-EPI)AfAm 159.33 Est GFR (CKD-EPI)NonAf 137.47 POC Glucometer Random Glucose 78 Lactic Acid 2.0 Calcium 8.9 Total Bilirubin 0.4 AST 70 H ALT 137 H Alkaline Phosphatase 69 Creatine Kinase 73 Troponin I < 0.02 Total Protein 6.9 Albumin 3.8 Urine Color Urine Appearance Urine pH Ur Specific [place] Urine Protein Urine Glucose (UA) Urine Ketones Urine Blood Urine Nitrite Urine Bilirubin Urine Urobilinogen Ur Leukocyte Esterase Opiates Screen Negative Methadone Screen Positive A* Barbiturate Screen Positive A* Phencyclidine Screen Negative Ur Amphetamines Screen Negative MDMA (Ecstasy) Screen Negative Benzodiazepines Screen Positive A* Cocaine Screen Negative U Marijuana (THC) Screen Negative 01/19/19 14:30 WBC RBC Hgb Hct MCV MCH MCHC RDW Plt Count MPV Absolute Neuts (auto) Neutrophils % Lymphocytes % Monocytes % Eosinophils % Basophils % Nucleated RBC % PT with INR INR PTT (Actin FS) Sodium Potassium Chloride Carbon Dioxide Anion Gap BUN Creatinine Est GFR (CKD-EPI)AfAm Est GFR (CKD-EPI)NonAf POC Glucometer Random Glucose Lactic Acid Calcium Total Bilirubin AST ALT Alkaline Phosphatase Creatine Kinase Troponin I Total Protein Albumin Urine Color Yellow Urine Appearance Clear Urine pH 7.5 D Ur Specific [place] 1.010 Urine Protein Negative Urine Glucose (UA) Negative Urine Ketones Negative Urine Blood Negative Urine Nitrite Negative Urine Bilirubin Negative Urine Urobilinogen 0.2 Ur Leukocyte Esterase Negative Opiates Screen Methadone Screen Barbiturate Screen Phencyclidine Screen Ur Amphetamines Screen MDMA (Ecstasy) Screen Benzodiazepines Screen Cocaine Screen U Marijuana (THC) Screen Active Medications Generic Name Dose Route Start Last Admin Trade Name Freq PRN Reason Stop Dose Admin Aspirin 81 mg 01/20/19 10:00 01/20/19 09:59 Asa - PO 81 mg DAILY LEONELA Administration Benztropine Mesylate 0.5 mg 01/19/19 22:00 01/20/19 09:59 Cogentin - PO 0.5 mg BID LEONELA Administration Bupropion HCl 100 mg 01/19/19 22:00 01/20/19 09:59 Wellbutrin - PO 100 mg BID LEONELA Administration Clonazepam 1 mg 01/19/19 22:00 01/20/19 06:57 Klonopin - PO 1 mg TID LEONELA Administration Gabapentin 300 mg 01/19/19 22:00 01/20/19 06:57 Neurontin - PO 300 mg TID LEONELA Administration Haloperidol 5 mg 01/20/19 10:00 01/20/19 09:59 Haldol - PO 5 mg DAILY LEONELA Administration Heparin Sodium (Porcine) 5,000 unit 01/19/19 22:00 01/20/19 10:10 Heparin - SQ 5,000 unit BID LEONELA Administration Lorazepam 1 mg 01/19/19 19:32 Ativan Injection - IVPUSH Q6H PRN ANXIETY Phenobarbital 90 mg 01/19/19 22:00 01/20/19 11:03 Phenobarbital - PO 90 mg BID LEONELA Administration Quetiapine Fumarate 400 mg 01/20/19 10:00 01/20/19 09:59 Seroquel - PO 400 mg DAILY LEONELA Administration
--- NOTE | 2019-01-19 19:31 | PDOC ---
*Physical Exam - Vital Signs Last Vital Signs Temp Pulse Resp BP Pulse Ox 98 F 97 H 18 124/82 98 01/19/19 12:54 01/19/19 12:54 01/19/19 12:54 01/19/19 12:54 01/19/19 12:54 - Physical Exam Comments: 01/19/19 19:27 pt noted to lower himself deliberately to the floor and pretended to lay there unresponsive. pt cursed at the md when tld that he eeds to retrun to his stretcher. pt insisting on geting valium because e claims to e undergoing withdrawal 2 weeks after entering [facility] detox. pt displays obvious pseudoseizures which terminate after administration of ns. i have informed the pt that his behavious is unacceptable and if he uses profanity again, he will be ejected. ED Treatment Course - LABORATORY CBC & Chemistry Diagram: 01/19/19 13:30 01/22/19 10:25 - ADDITIONAL ORDERS Additional order review: Laboratory Results 01/19/19 01/19/19 01/19/19 14:30 14:30 13:30 PT with INR INR PTT (Actin FS) Sodium Potassium Chloride Carbon Dioxide Anion Gap BUN Creatinine Est GFR (CKD-EPI)AfAm Est GFR (CKD-EPI)NonAf POC Glucometer Random Glucose Lactic Acid 2.0 Calcium Total Bilirubin AST ALT Alkaline Phosphatase Creatine Kinase Troponin I Total Protein Albumin Urine Color Yellow Urine Appearance Clear Urine pH 7.5 D Ur Specific [place] 1.010 Urine Protein Negative Urine Glucose (UA) Negative Urine Ketones Negative Urine Blood Negative Urine Nitrite Negative Urine Bilirubin Negative Urine Urobilinogen 0.2 Ur Leukocyte Esterase Negative Opiates Screen Negative Methadone Screen Positive A* Barbiturate Screen Positive A* Phencyclidine Screen Negative Ur Amphetamines Screen Negative MDMA (Ecstasy) Screen Negative Benzodiazepines Screen Positive A* Cocaine Screen Negative U Marijuana (THC) Screen Negative 01/19/19 01/19/19 01/19/19 13:30 13:30 13:25 PT with INR 12.10 INR 1.03 PTT (Actin FS) 32.3 Sodium 143 Potassium 4.2 Chloride 107 Carbon Dioxide 29 Anion Gap 7 L BUN 7.9 Creatinine 0.5 L Est GFR (CKD-EPI)AfAm 159.33 Est GFR (CKD-EPI)NonAf 137.47 POC Glucometer 80 Random Glucose 78 Lactic Acid Calcium 8.9 Total Bilirubin 0.4 AST 70 H ALT 137 H Alkaline Phosphatase 69 Creatine Kinase 73 Troponin I < 0.02 Total Protein 6.9 Albumin 3.8 Urine Color Urine Appearance Urine pH Ur Specific [place] Urine Protein Urine Glucose (UA) Urine Ketones Urine Blood Urine Nitrite Urine Bilirubin Urine Urobilinogen Ur Leukocyte Esterase Opiates Screen Methadone Screen Barbiturate Screen Phencyclidine Screen Ur Amphetamines Screen MDMA (Ecstasy) Screen Benzodiazepines Screen Cocaine Screen U Marijuana (THC) Screen 01/19/19 01/19/19 13:30 13:25 RBC 4.88 MCV 87.6 MCHC 33.7 RDW 14.7 MPV 7.5 Neutrophils % 57.4 D Lymphocytes % 32.0 D Monocytes % 6.3 Eosinophils % 3.4 Basophils % 0.9 POC Glucometer 80 - Medications Given in the ED: ED Medications Discontinued Medications Generic Name Dose Route Start Last Admin Trade Name Edyq PRN Reason Stop Dose Admin Gabapentin 300 mg 01/19/19 15:27 01/19/19 16:20 Neurontin - PO 01/19/19 15:28 300 mg ONCE ONE Administration Phenobarbital 2,340 mg/ Sodium 136 mls @ 136 mls/hr 01/19/19 16:30 01/19/19 17:38 Chloride IV 01/19/19 17:29 Not Given ONCE ONE Lorazepam 2 mg 01/19/19 14:25 01/19/19 13:25 Ativan Injection - IVPUSH 01/19/19 14:26 2 mg ONCE ONE Administration Lorazepam 2 mg 01/19/19 14:25 01/19/19 14:33 Ativan Injection - IVPUSH 01/19/19 14:26 2 mg ONCE ONE Administration Phenobarbital 2,340 mg 01/19/19 16:25 01/19/19 17:20 Phenobarbital Injection - IVPUSH 01/19/19 16:26 2,340 mg ONCE ONE Administration Sodium Chloride 1,000 ml 01/19/19 14:25 01/19/19 14:32 Normal Saline - IV 01/19/19 14:26 1,000 ml ONCE ONE Administration Discharge - Discharge Information Problems reviewed: Yes Clinical Impression/Diagnosis: Seizure disorder, Substance abuse Condition: Fair - Follow up/Referral - Patient Discharge Instructions - Post Discharge Activity
[2019-01-19] MEDS ORDERED: LORazepam 2 MG/ML SDV VIAL IVPUSH PRN (19:32)
[2019-01-19] MEDS ORDERED: METHYLPHENIDATE HCL 10 MG PO SCH (22:00)
[2019-01-19] MEDS ORDERED: buPROPion HCL 75 MG TABLET PO SCH (22:00)
[2019-01-19] MEDS ORDERED: PATIENT'S OWN MEDICATION (NON-FORMULARY) (Clonazepam [Klonopin] 1 MG) PO SCH (22:00)
[2019-01-19] MEDS ORDERED: HEPARIN NA (PORCINE) 5,000 UNITS/ML 1ML VIAL ONE (22:36)
[2019-01-19] MEDS ORDERED: clonazePAM 0.5 MG TABLET ONE (22:36)
[2019-01-19] MEDS ORDERED: buPROPion HCL 100 MG TABLET ONE (22:36)
[2019-01-19] MEDS: BENZTROPINE MESYLATE 0.5 MG TABLET (FP) PO SCH (22:49)
[2019-01-19] MEDS: buPROPion HCL 100 MG TABLET PO SCH (22:50)
[2019-01-19] MEDS: GABAPENTIN 300 MG CAPSULE (FP) PO SCH (22:50)
[2019-01-19] MEDS: clonazePAM 0.5 MG TABLET PO SCH (22:50)
[2019-01-19] MEDS: PHENobarbital 30 MG TABLET PO SCH (22:50)
[2019-01-19] MEDS: HEPARIN NA (PORCINE) 5,000 UNITS/ML 1ML VIAL SQ SCH (22:54)
[2019-01-20] MEDS ORDERED: clonazePAM 0.5 MG TABLET ONE (06:51)
[2019-01-20] MEDS ORDERED: GABAPENTIN 100 MG CAPSULE (FP) ONE (06:52)
[2019-01-20] MEDS: clonazePAM 0.5 MG TABLET PO SCH ×2 (06:57→18:11)
[2019-01-20] MEDS: GABAPENTIN 300 MG CAPSULE (FP) PO SCH ×3 (06:57→22:52)
[2019-01-20] MEDS ORDERED: LORazepam 2 MG/ML SDV VIAL IM ONE ×2 (09:21→16:57)
[2019-01-20] MEDS ORDERED: LORazepam 2 MG/ML SDV VIAL ONE ×3 (09:22→20:36)
[2019-01-20] MEDS ORDERED: METHADONE HCL 10 MG TABLET PO ONE (09:47)
[2019-01-20] MEDS ORDERED: METHADONE HCL 10 MG TABLET ONE (09:51)
[2019-01-20] MEDS ORDERED: METHADONE HCL 40 MG DISPERSABLE TABLET ONE (09:51)
[2019-01-20] MEDS: BENZTROPINE MESYLATE 0.5 MG TABLET (FP) PO SCH ×2 (09:59→22:54)
[2019-01-20] MEDS: buPROPion HCL 100 MG TABLET PO SCH ×2 (09:59→22:56)
[2019-01-20] MEDS ORDERED: ASPIRIN 81 MG CHEWABLE TABLETS PO SCH (10:00)
[2019-01-20] MEDS ORDERED: QUEtiapine FUMARATE 200 MG TABLET PO SCH (10:00)
[2019-01-20] MEDS ORDERED: HALOPERIDOL 5 MG TABLET (FP) PO SCH (10:00)
[2019-01-20] MEDS ORDERED: HEPARIN NA (PORCINE) 5,000 UNITS/ML 1ML VIAL ONE (10:01)
[2019-01-20] MEDS: HEPARIN NA (PORCINE) 5,000 UNITS/ML 1ML VIAL SQ SCH ×2 (10:10→22:53)
[2019-01-20] MEDS: PHENobarbital 30 MG TABLET PO SCH ×2 (11:03→18:11)
--- NOTE | 2019-01-20 12:11 | CON.PSY ---
Psychiatry Consult Chief Complaint: 38 UYera old male sen t from [facility] for ? seizures. History of significant multiple drug abuse Disorder. - Previous Psychiatric Treatment Outpatient: None Inpatient: None - Previous Substance Abuse Treatment Outpatient: Less than 6 mos ago Inpatient: Within the last 12 months - Reason for Previous Treatment Reason for Previous Treatment: Drug Abuse, Alcohol Abuse, Marijuana, Cocaine - Current Medications Current Medications: Active Medications Aspirin (Asa -) 81 mg PO DAILY [facility] Last Admin: 01/20/19 09:59 Dose: 81 mg Benztropine Mesylate (Cogentin -) 0.5 mg PO BID [facility] Last Admin: 01/20/19 09:59 Dose: 0.5 mg Bupropion HCl (Wellbutrin -) 100 mg PO BID [facility] Last Admin: 01/20/19 09:59 Dose: 100 mg Clonazepam (Klonopin -) 1 mg PO TID [facility] Last Admin: 01/20/19 06:57 Dose: 1 mg Gabapentin (Neurontin -) 300 mg PO TID [facility] Last Admin: 01/20/19 06:57 Dose: 300 mg Haloperidol (Haldol -) 5 mg PO DAILY [facility] Last Admin: 01/20/19 09:59 Dose: 5 mg Heparin Sodium (Porcine) (Heparin -) 5,000 unit SQ BID [facility] Last Admin: 01/20/19 10:10 Dose: 5,000 unit Lorazepam (Ativan Injection -) 1 mg IVPUSH Q6H PRN PRN Reason: ANXIETY Phenobarbital (Phenobarbital -) 90 mg PO BID [facility] Last Admin: 01/20/19 11:03 Dose: 90 mg Quetiapine Fumarate (Seroquel -) 400 mg PO DAILY [facility] Last Admin: 01/20/19 09:59 Dose: 400 mg - Allergies Allergies: Allergies Allergy/AdvReac Type Severity Reaction Status Date / Time promethazine HCl Allergy Unknown Swelling Verified 01/06/14 17:02 [From Phenergan] prochlorperazine edisylate Allergy Verified 01/06/14 17:02 [From Compazine] prochlorperazine maleate Allergy Verified 01/06/14 17:02 [From Compazine] trazodone Allergy Swelling Verified 01/06/14 17:02 - Current Living Status Usual Living Arrangement: Alone - Current Mental Status Evaluation Appearance: Disheveled Attitude: Guarded - Affect Affect: Constrictive Appropriateness: Appropriate to Content - Speech/Language Expressive: Delayed - Psychomotor Activity Psychomotor Activity: Slowed - Thought Process Thought Process: Intact - Thought Content Hallucinations: Absent Delusions: Absent - Self Perception Self Perception: No Impairment - Cognition Attention: Alert Orientation: Time Memory, Immediate Recall: Intact Memory, Short Term: 2/3 Memory, Remote with Promptin/3 - Concentration Serial Sevens Intact: No Simple Calculations Intact: No - Abstraction Proverb Interpretation: Intact Judgement: Minimally Impaired - Insight Insight: Intact - Impulse Control Impulse Control: Minimally Impaired - Suicidal Ideation Suicidal Ideation: No - Homicidal Ideation Homicidal Ideation: No Assessment/Plan 1) Admit to Medicine for Seizures.
--- NOTE | 2019-01-20 14:09 | EKG ---
Test Reason : Blood Pressure : / mmHG Vent. Rate : 107 BPM Atrial Rate : 107 BPM P-R Int : 180 ms QRS Dur : 080 ms QT Int : 322 ms P-R-T Axes : 054 024 033 degrees QTc Int : 429 ms SINUS TACHYCARDIA OTHERWISE NORMAL ECG WHEN COMPARED WITH ECG OF 06-JAN-2019 07:07, VENT. RATE HAS INCREASED BY 36 BPM Confirmed by WARREN TELLO MD ([id number]) on 01/20/2019 2:09:04 PM Referred By: Confirmed By:WARREN TELLO MD
[2019-01-20] MEDS ORDERED: LORazepam 2 MG/ML SDV VIAL IVPUSH ONE ×2 (16:55→20:34)
--- NOTE | 2019-01-20 17:27 | RAPID ---
Physical Examination Vital Signs: Vital Signs Temperature 97.5 F L 01/20/19 15:30 Pulse Rate 88 01/20/19 15:30 Respiratory Rate 20 01/20/19 15:30 Blood Pressure 132/75 01/20/19 15:30 O2 Sat by Pulse Oximetry (%) 97 01/20/19 13:27 16:49 HR 92 BP 123/79 O2 99% BGM 111 17:48 HR 98 BP 136/92 O2 93% Constitutional: Yes: Well Nourished, Obese, Other (found down, myoclonic trunk/ BUE/BLE; no responding to sternal rub or shouts) Eyes: Yes: Conjunctiva Clear, Other (dilated pupils(5mm)). No: Sclera Icterus HENT: Yes: Atraumatic, Normocephalic, Other (no palpable scalp hematoma, no blood in mouth) Neck: Yes: Supple, Trachea Midline. No: Lymphadenopathy, Rigid Cardiovascular: Yes: Regular Rate and Rhythm Respiratory: Yes: Regular, CTA Bilaterally. No: Accessory Muscle Use Gastrointestinal: Yes: Soft, Abdomen, Obese. No: Distention Extremities: No: Internal Rotation Edema: No Peripheral Pulses: Right Radial: 2+, Left Doralis Pedis: 2+, Right Dorsalis Pedis: 2+ Integumentary: Yes: Tattoos. No: Laceration Neurological: Yes: Seizure, Tremors, Unresponsive. No: Alert, Oriented Labs: CBC, BMP 01/19/19 13:30 01/19/19 13:30 Rapid Response - Rapid Response Assessment: 38 year old male, with a significant PMH of heroin, EtOH, cocaine, and marijuana dependence (currently undergoing detox at [facility]), seizures, Hepatitis C, latent tuberculosis, and depression, who was transferred from [facility] for evaluation of multiple seizures(3x). Found down, supine, seizing myotonic. Given Ativan 1mg x2. Gained consciousness during transport to radiology for CTH, ~approx 15mins from time of initiation of event. Appeared confused, did not recall fall. States that he felt a warm flushing sensation throughout his body which he has experienced with prior seizures. 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 Endorses hunger. Possible multiple seizure episodes Outcome: ~15:48 a rapid response was called for another fall. Patient found prone on floor. Received Ativan 2mg x1. Regained consciousness in 5-10mins #seizure -s/p Ativan 1mg x2, Ativan 2mg x1 -keppra 1000mg -- but held due to patient stating that he has facial swelling d/ t keppra -[facility] -- fu read -ICU consulted
[2019-01-20] MEDS ORDERED: levETIRAcetam 500 MG/5 ML INJECTION VIAL IVPB ONE ×3 (17:56→18:01)
--- NOTE | 2019-01-20 18:11 | PN ---
Progress Note, Physician History of Present Illness: events noted spoke with residents - Current Medication List Current Medications: Active Medications Aspirin (Asa -) 81 mg PO DAILY [facility] Last Admin: 01/20/19 09:59 Dose: 81 mg Benztropine Mesylate (Cogentin -) 0.5 mg PO BID [facility] Last Admin: 01/20/19 09:59 Dose: 0.5 mg Bupropion HCl (Wellbutrin -) 100 mg PO BID [facility] Last Admin: 01/20/19 09:59 Dose: 100 mg Clonazepam (Klonopin -) 1 mg PO TID [facility] Last Admin: 01/20/19 06:57 Dose: 1 mg Gabapentin (Neurontin -) 300 mg PO TID [facility] Last Admin: 01/20/19 06:57 Dose: 300 mg Haloperidol (Haldol -) 5 mg PO DAILY [facility] Last Admin: 01/20/19 09:59 Dose: 5 mg Heparin Sodium (Porcine) (Heparin -) 5,000 unit SQ BID [facility] Last Admin: 01/20/19 10:10 Dose: 5,000 unit Lorazepam (Ativan Injection -) 1 mg IVPUSH Q6H PRN PRN Reason: ANXIETY Phenobarbital (Phenobarbital -) 90 mg PO BID [facility] Last Admin: 01/20/19 11:03 Dose: 90 mg Quetiapine Fumarate (Seroquel -) 400 mg PO DAILY [facility] Last Admin: 01/20/19 09:59 Dose: 400 mg - Objective Vital Signs: Vital Signs Temperature 97.5 F L 01/20/19 15:30 Pulse Rate 88 01/20/19 15:30 Respiratory Rate 20 01/20/19 15:30 Blood Pressure 132/75 01/20/19 15:30 O2 Sat by Pulse Oximetry (%) 97 01/20/19 13:27 Constitutional: Yes: Calm HENT: Yes: Atraumatic Neck: Yes: Supple Cardiovascular: Yes: Regular Rate and Rhythm Respiratory: Yes: CTA Bilaterally Gastrointestinal: Yes: Normal Bowel Sounds Extremities: Yes: WNL Edema: No Peripheral Pulses WNL: Yes Neurological: Yes: Alert, Oriented Labs: CBC, BMP 01/19/19 13:30 01/19/19 13:30 INR, PTT INR 1.03 (0.83-1.09) 01/19/19 13:30 Problem List - Problems (1) Alcohol dependence Assessment/Plan: detox consult prn ativan for withdrawl Code(s): F10.20 - ALCOHOL DEPENDENCE, UNCOMPLICATED (2) Nicotine dependence Code(s): F17.200 - NICOTINE DEPENDENCE, UNSPECIFIED, UNCOMPLICATED (3) Opioid dependence Code(s): F11.20 - OPIOID DEPENDENCE, UNCOMPLICATED (4) Substance abuse Code(s): F19.10 - OTHER PSYCHOACTIVE SUBSTANCE ABUSE, UNCOMPLICATED (5) Substance-induced sleep disorder Code(s): F19.982 - OTH PSYCHOACTIVE SUBSTANCE USE, UNSP W SLEEP DISORDER (6) Seizure disorder Assessment/Plan: continue meds as per neuro Code(s): G40.909 - EPILEPSY, UNSP, NOT INTRACTABLE, WITHOUT STATUS EPILEPTICUS (7) Bipolar disorder Code(s): F31.9 - BIPOLAR DISORDER, UNSPECIFIED
--- NOTE | 2019-01-20 18:19 | CONSULT ---
Consultation: REQUESTING PROVIDER: Dr Hernadez CONSULT REQUEST: We have been asked to medically evaluate this patient for ( Seizure). HISTORY OF PRESENT ILLNESS: Pt is a 38 y/o m with a significant past medical history of polysubstance abuse (Cocaine, heroine, marijuana, alcohol), HTN, Hepatitis C, latent tuberculosis, Seizure d/o, and asthma who presented initially to [facility] from [facility] due to multiple seizures while at [facility]. Per medical records, initial seizures were unwitnessed. Pt was transferred to [facility] ED and given Valium 5 mg while en route. Pt also reportedly experienced 2 more seizures while in ED; pt was administered ativan after each seizure episode. Per my interview, pt endorses he has been suffering from seizures since he was 5 years old. Pt states he currently takes Phenobarbital, klonopin, Gabapentin, Welbutrin, and oxycarbazapine?, seroquel, haldol, and percocet. Pt states that he wasn't taking his usual medications at the time of his seizure at [facility]. ICU team was called to evaluate pt as rapid response was called earlier in the day as pt endured a seizure. Pt was sent to CT (imaging negative for acute pathology). Pt was again noted to have a seizure later that evening. Ativan was administered which stopped the seizure. PMH- As above FH- Mother-Leukemia, Father healthy Social: + Cocaine, Heroine. Drinks 1-2 pints Vodka daily REVIEW OF SYSTEMS: CONSTITUTIONAL: Absent: fever, chills, diaphoresis, generalized weakness, malaise, loss of appetite, weight change HEENT: Absent: rhinorrhea, nasal congestion, throat pain, throat swelling, difficulty swallowing, mouth swelling, ear pain, eye pain, visual changes CARDIOVASCULAR: Absent: chest pain, syncope, palpitations, irregular heart rate, lightheadedness , peripheral edema RESPIRATORY: Absent: cough, shortness of breath, dyspnea with exertion, orthopnea, wheezing, stridor, hemoptysis GASTROINTESTINAL: Absent: abdominal pain, abdominal distension, nausea, vomiting, diarrhea, constipation, melena, hematochezia GENITOURINARY: Absent: dysuria, frequency, urgency, hesitancy, hematuria, flank pain, genital pain MUSCULOSKELETAL: Absent: myalgia, arthralgia, joint swelling, back pain, neck pain SKIN: Absent: rash, itching, pallor HEMATOLOGIC/IMMUNOLOGIC: Absent: easy bleeding, easy bruising, lymphadenopathy, frequent infections ENDOCRINE: Absent: unexplained weight gain, unexplained weight loss, heat intolerance, cold intolerance NEUROLOGIC: PRESENT: dizziness, seizure PSYCHIATRIC: Absent: anxiety, depression, suicidal or homicidal ideation, hallucinations. PHYSICAL EXAMINATION Vital Signs - 24 hr 01/19/19 01/19/19 01/20/19 22:55 23:13 03:00 Temperature 97.6 F 98.2 F Pulse Rate Pulse Rate [ 82 84 Apical] Respiratory 20 14 Rate Blood Pressure Blood Pressure 129/79 128/74 [Right Arm] O2 Sat by Pulse 98 99 98 Oximetry (%) 01/20/19 01/20/19 01/20/19 09:00 13:27 15:30 Temperature 98 F 97.5 F L Pulse Rate 88 Pulse Rate [ 82 72 Apical] Respiratory 14 18 20 Rate Blood Pressure 132/75 Blood Pressure 126/72 126/95 [Right Arm] O2 Sat by Pulse 97 97 Oximetry (%) GENERAL: Somnolent HEAD: AT/NC EYES: EOMI Sclera Clear EARS, NOSE, THROAT: MMM LUNGS: CTAB HEART: RRR S1S2 LOWER EXTREMITIES: No CCE NEUROLOGICAL: Strength 5/5 upper/lower extremities. CN 2-12 intact. SILT. PSYCHIATRIC: SKIN: Warm, dry, normal turgor, no rashes or lesions noted. Laboratory Results - last 24 hr 01/20/19 01/20/19 16:57 17:46 POC Glucometer 86 80 Active Medications Generic Name Dose Route Start Last Admin Trade Name Freq PRN Reason Stop Dose Admin Aspirin 81 mg 01/20/19 10:00 01/20/19 09:59 Asa - PO 81 mg DAILY LEONELA Administration Benztropine Mesylate 0.5 mg 01/19/19 22:00 01/20/19 09:59 Cogentin - PO 0.5 mg BID LEONELA Administration Bupropion HCl 100 mg 01/19/19 22:00 01/20/19 09:59 Wellbutrin - PO 100 mg BID LEONELA Administration Clonazepam 1 mg 01/19/19 22:00 01/20/19 18:11 Klonopin - PO 1 mg TID LEONELA Administration Gabapentin 300 mg 01/19/19 22:00 01/20/19 18:11 Neurontin - PO 300 mg TID LEONELA Administration Haloperidol 5 mg 01/20/19 10:00 01/20/19 09:59 Haldol - PO 5 mg DAILY LEONELA Administration Heparin Sodium (Porcine) 5,000 unit 01/19/19 22:00 01/20/19 10:10 Heparin - SQ 5,000 unit BID LEONELA Administration Lorazepam 1 mg 01/19/19 19:32 Ativan Injection - IVPUSH Q6H PRN ANXIETY Phenobarbital 90 mg 01/19/19 22:00 01/20/19 18:11 Phenobarbital - PO 90 mg BID LEONELA Administration Quetiapine Fumarate 400 mg 01/20/19 10:00 01/20/19 09:59 Seroquel - PO 400 mg DAILY LEONELA Administration ASSESSMENT/PLAN: Pt is a 38 y/o m with a significant past medical history of polysubstance abuse (Cocaine, heroine, marijuana, alcohol), HTN, Hepatitis C, latent tuberculosis, Seizure d/o, and asthma who presented initially to [facility] from [facility] due to multiple seizures while at [facility]. #Neuro-Seizure disorder 2/2 Drug withdrawal/Encephalomalacia - CT Head Neg for acute pathology. -Seizure precautions -1:1 observation - Prolactin level ordered however test is sent out and may take few days to return - Ativan PRN for breakthrough seizures -Neurology, Dr Park on board. Recommends loading with Fosphenytoin 1000mg x1 now. Dilantin 300mg daily starting tomorrow, 01/21/19. -Pt does have encephalomalacia on CT---this may be precipitant of seizures. -Will place patient on Ativan protocol instead of librium in light of pmh of hep c and cirrhosis. -Ativan 2mg prn for sz. -Cont. phenobarbital 90mg bid -EEG -Will d/c Klonopin -Will continue pt on home Phenobarbital, Seroquel. #FEN No Standing fluids Monitor Electrolytes NPO #DVT pxx: HEPSQTID Dispo: We will continue to follow the patient. Thank you for this consultative opportunity. t Visit type - Emergency Visit Emergency Visit: Yes ED Registration Date: 01/19/19 Care time: The patient presented to the Emergency Department on the above date and was hospitalized for further evaluation of their emergent condition. - New Patient This patient is new to me today: Yes Date on this admission: 01/20/19 - Critical Care Critical Care patient: Yes Total Critical Care Time (in minutes): 35 Critical Care Statement: The care of this patient involved high complexity decision making to prevent further life threatening deterioration of the patient 's condition and/or to evaluate & treat vital organ system(s) failure or risk of failure.
--- NOTE | 2019-01-20 20:32 | RAPID ---
Physical Examination Vital Signs: Vital Signs Temperature 97.5 F L 01/20/19 15:30 Pulse Rate 88 01/20/19 15:30 Respiratory Rate 20 01/20/19 15:30 Blood Pressure 132/75 01/20/19 15:30 O2 Sat by Pulse Oximetry (%) 97 01/20/19 13:27 : Rapid Response called at 2020 Rapid response team arrived immediately at ICU On arrival patient was on the ground. As per ICU staff patient slid off the bed. Patient is on continuous observation and was noted to have slipped off the bed onto the ground. Patient did not hit his head when he fell. Patient was convulsing on the ground with seizure like activity. Vitals: 128/88, 74 HR, 18RR Physical Exam: Constitutional: patient uncooperative, withdrawn Head: Normocephalic, atraumatic Eyes: EOMI, PERRL Cardio: Normal S1, S2, normal rate and rhythm Respiratory: Lungs clear to auscultation bilaterally, no wheezing or rales Abd: soft, nontender, nondistended MSK: normal gait, no bony deformities Neuro: unable to assess as patient is uncooperative. Muscle tone normal. 5/5 strength upper and lower extremities 2mg of Ativan was given with resolving of seizure activity Security was called to help patient back into bed. Patient was able to get up on his own and get into the bed. Patient having a repeat seizure in bed. 3 limbs with convulsant movement. No convulsing of left arm. additional 2mg of ativan given Seizure resolved, patient resting comfortably in exam bed Dr. Vivian borja. Follow neuro recs Labs: CBC, BMP 01/19/19 13:30 01/19/19 13:30
[2019-01-20] MEDS ORDERED: FOSPHENYTOIN SODIUM 1,000 MG in SODIUM CHLORIDE 100 ML IVPB ONE (21:30)
--- NOTE | 2019-01-20 21:44 | CON.NEURO ---
Consult Consult Specialty:: NEUROLOGY-MARÍA SPEARS - History of Present Illness History of Present Illness: 38 year old male, with a significant PMH of heroin, EtOH, cocaine, and marijuana dependence ([place] [facility] seizures, Hepatitis C, latent tuberculosis, and depression, who presents to the ED [place] [facility] for evaluation of multiple seizures today. As per [facility] [place] , patient had 2 unwitnessed seizures today. He was found on the floor. Patient is unsure if he hit his head. En route to the ED, patient seized. He was given valium prior to arrival. In ED, patient seized two more times, and was given Ativan following each episode. He admits to cocaine and marijuana use over the past week. Patient complains of a headache and tremors while in the ED, and notes he feels as if he is withdrawing. Loaded with phenobarbital yesterday in ER and being rx. with Ativan prn for several sz, reported generalized sz"described as shrugging" with LOC. No confusion followed after several of these events. Pt. reports sz. d/o since age 5, that he was drinking a 12 pack and a pint of hard liquor daily [employer] [place] [facility] Refusing to give further hx. only that he was taking Xanax/ Klonopin. 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 Psych: Yes: Addictions, Anxiety, Depression - Alcohol/Substance Use Hx Alcohol Use: Yes History of Substance Use: reports: Prescription, Tranquilizers - Smoking History Smoking history: Current every day smoker Have you smoked in the past 12 months: Yes Aproximately how many cigarettes per day: 20 - Social History Usual Living Arrangement: Alone ADL: Independent Occupation: unemployed Home Medications - Allergies Allergies/Adverse Reactions: Allergies Allergy/AdvReac Type Severity Reaction Status Date / Time promethazine HCl Allergy Unknown Swelling Verified 01/06/14 17:02 [From Phenergan] prochlorperazine edisylate Allergy Verified 01/06/14 17:02 [From Compazine] prochlorperazine maleate Allergy Verified 01/06/14 17:02 [From Compazine] trazodone Allergy Swelling Verified 01/06/14 17:02 - Home Medications Home Medications: Ambulatory Orders Bupropion HCl [Wellbutrin -] 100 mg PO BID 01/04/19 Gabapentin [Neurontin -] 300 mg PO Q8H 01/04/19 Phenobarbital 100 mg PO BID 01/04/19 Quetiapine Fumarate [Seroquel -] 400 mg PO DAILY MDD 200 mg 01/04/19 Aspirin 81 mg PO DAILY 01/19/19 Benztropine Mesylate [Cogentin -] 0.5 mg PO BID 01/19/19 Clonazepam [Klonopin] 1 mg PO TID 01/19/19 Gabapentin [Neurontin] 300 mg PO TID 01/19/19 Haloperidol [Haldol -] 5 mg PO DAILY 01/19/19 Methylphenidate HCl [Methylphenidate ER] 10 mg PO BID 01/19/19 Methadone [Dolophine -] 30 mg PO DAILY 01/20/19 Methadone [Dolophine -] 40 mg PO DAILY 01/20/19 Physical Exam-Neuro Vital Signs: Vital Signs Temperature 97.5 F L 01/20/19 15:30 Pulse Rate 74 01/20/19 20:37 Respiratory Rate 20 01/20/19 21:00 Blood Pressure 128/88 01/20/19 20:37 O2 Sat by Pulse Oximetry (%) 97 01/20/19 21:00 Labs: CBC, BMP 01/19/19 13:30 01/19/19 13:30 INR, PTT INR 1.03 (0.83-1.09) 01/19/19 13:30 - Neuro Exam Level Of Consciousness: Yes: Alert, Oriented to Person, Oriented to Place, Oriented to Time Eyes: Yes: LIBBY Speech: Other (Loud) Mini Mental Exam: Follows 2 step commands, refuses rest of exam. Agitated Response to light touch: Normal Response to pain prick: Normal Motor Strength: 5/5: Left Arm, Right Arm, Left Leg, Right Leg Gait: Deferred Imaging - Results Cat Scan: Report Reviewed (Left post. temp/occipital encephalomalacia) Assessment/Plan Seizures, likely both electrical and non-electrical in the setting of ETOH withdrawl and less likely opiate withdrawl. ?? Benzodiazepine withdrawl. he has left temporal encephalomalacia which may be cause of sz. Suggest: Load with Fosphenytoin 1000mg x1 now. Dilantin 300mg daily starting tomorrow. D/C Klonopin Treat for ETOH withdrawl- Librium 25-50 mg q6hrs and taper over 5 days. Cont. phenobarbital 90mg bid Ativan 2mg prn for sz. EEG Psychiatry consult
[2019-01-20] MEDS ORDERED: chlordiazePOXIDE HCL 25 MG CAPSULE PO PRN (21:53)
[2019-01-20] MEDS ORDERED: LORazepam 1 MG TABLET PO PRN ×2 (22:17→23:50)
[2019-01-20] MEDS: MUPIROCIN 2% TOPICAL OINTMENT FOR DECOLONIZATION NS SCH (22:52)
[2019-01-20] MEDS: CHLORHEXIDINE GLUCONATE 4% CLEANSER FOR DECOLONIZATION TP SCH (22:54)
[2019-01-20] MEDS ORDERED: chlordiazePOXIDE HCL 25 MG CAPSULE PO SCH (23:00)
--- NOTE | 2019-01-20 23:32 | PN ---
Progress Note (short form) - Note Progress Note: Patient endorses command auditory hallucinations telling him to kill me ( Leland Coy). Denies suicidal ideation. Denies homicidal ideation towards anyone else. Patient placed on homicide protocol per director of nursing. Security called with 1:1 at bedside. The above conversation was witnessed by patient's nurse (Skyla) and tech.
[2019-01-21] MEDS: PHENobarbital 30 MG TABLET PO SCH ×3 (01:37→21:06)
[2019-01-21] MEDS: LORazepam 1 MG TABLET PO SCH ×2 (06:34→14:05)
[2019-01-21] MEDS: GABAPENTIN 300 MG CAPSULE (FP) PO SCH ×3 (06:34→21:06)
[2019-01-21] MEDS ORDERED: METHADONE HCL 10 MG TABLET (FOR DETOX USE ONLY) PO ONE (08:02)
[2019-01-21] MEDS ORDERED: LORazepam 2 MG/ML SDV VIAL IVPUSH PRN (08:19)
--- NOTE | 2019-01-21 08:19 | PN ---
Progress Note (short form) - Note Progress Note: HPI 01/20/19 : 38 year old male, with a significant PMH of heroin, EtOH, cocaine, and marijuana dependence (currently undergoing detox at [facility]), seizures, Hepatitis C, latent tuberculosis, and depression, who presents to the ED BIBA from [facility] for evaluation of multiple seizures today. As per [facility] nurse , patient had 2 unwitnessed seizures today. He was found on the floor. Patient is unsure if he hit his head. En route to the ED, patient seized. He was given valium prior to arrival. In ED, patient seized two more times, and was given Ativan following each episode. He admits to cocaine and marijuana use over the past week. Patient complains of a headache and tremors while in the ED, and notes he feels as if he is withdrawing. Loaded with phenobarbital yesterday in ER and being rx. with Ativan prn for several sz, reported generalized sz"described as shrugging" with LOC. No confusion followed after several of these events. Pt. reports sz. d/o since age 5, that he was drinking a 12 pack and a pint of hard liquor daily [employer] A[employer]LYT[employer] LEAD admission to [facility]. Refusing to give further hx. only that he was taking Xanax/ Klonopin. 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 Psych: Yes: Addictions, Anxiety, Depression - Alcohol/Substance Use Hx Alcohol Use: Yes History of Substance Use: reports: Prescription, Tranquilizers - Smoking History Smoking history: Current every day smoker Have you smoked in the past 12 months: Yes Aproximately how many cigarettes per day: 20 - Social History Usual Living Arrangement: Alone ADL: Independent Occupation: unemployed Home Medications - Allergies Allergies/Adverse Reactions: Allergies Allergy/AdvReac Type Severity Reaction Status Date / Time promethazine HCl Allergy Unknown Swelling Verified 01/06/14 17:02 [From Phenergan] prochlorperazine edisylate Allergy Verified 01/06/14 17:02 [From Compazine] prochlorperazine maleate Allergy Verified 01/06/14 17:02 [From Compazine] trazodone Allergy Swelling Verified 01/06/14 17:02 - Home Medications Home Medications: Ambulatory Orders Bupropion HCl [Wellbutrin -] 100 mg PO BID 01/04/19 Gabapentin [Neurontin -] 300 mg PO Q8H 01/04/19 Phenobarbital 100 mg PO BID 01/04/19 Quetiapine Fumarate [Seroquel -] 400 mg PO DAILY MDD 200 mg 01/04/19 Aspirin 81 mg PO DAILY 01/19/19 Benztropine Mesylate [Cogentin -] 0.5 mg PO BID 01/19/19 Clonazepam [Klonopin] 1 mg PO TID 01/19/19 Gabapentin [Neurontin] 300 mg PO TID 01/19/19 Haloperidol [Haldol -] 5 mg PO DAILY 01/19/19 Methylphenidate HCl [Methylphenidate ER] 10 mg PO BID 01/19/19 Methadone [Dolophine -] 30 mg PO DAILY 01/20/19 Methadone [Dolophine -] 40 mg PO DAILY 01/20/19 Physical Exam-Neuro Vital Signs: Vital Signs Temperature 97.8 F 01/20/19 17:45 Pulse Rate 91 H 01/20/19 21:26 Respiratory Rate 18 01/21/19 05:26 Blood Pressure 107/75 01/21/19 06:00 O2 Sat by Pulse Oximetry (%) 97 01/21/19 02:53 Labs: CBCD WBC 5.2 K/mm3 (4.0-10.0) 01/19/19 13:30 RBC 4.88 M/mm3 (4.00-5.60) 01/19/19 13:30 Hgb 14.4 GM/dL (11.7-16.9) 01/19/19 13:30 Hct 42.8 % (35.4-49) 01/19/19 13:30 MCV 87.6 fl (80-96) 01/19/19 13:30 MCHC 33.7 g/dl (32.0-35.9) 01/19/19 13:30 RDW 14.7 % (11.9-15.9) 01/19/19 13:30 Plt Count 243 K/MM3 (134-434) 01/19/19 13:30 MPV 7.5 fl (7.5-11.1) 01/19/19 13:30 CMP Sodium 143 mmol/L (136-145) 01/19/19 13:30 Potassium 4.2 mmol/L (3.5-5.1) 01/19/19 13:30 Chloride 107 mmol/L (98-107) 01/19/19 13:30 Carbon Dioxide 29 mmol/L (21-32) 01/19/19 13:30 Anion Gap 7 MMOL/L (8-16) L 01/19/19 13:30 BUN 7.9 mg/dL (7-18) 01/19/19 13:30 Creatinine 0.5 mg/dL (0.55-1.3) L 01/19/19 13:30 Calcium 8.9 mg/dL (8.5-10.1) 01/19/19 13:30 Total Bilirubin 0.4 mg/dL (0.2-1) 01/19/19 13:30 AST 70 U/L (15-37) H 01/19/19 13:30 ALT 137 U/L (13-61) H 01/19/19 13:30 Alkaline Phosphatase 69 U/L (45-117) 01/19/19 13:30 Total Protein 6.9 g/dl (6.4-8.2) 01/19/19 13:30 Albumin 3.8 g/dl (3.4-5.0) 01/19/19 13:30 - Neuro Exam Level Of Consciousness: Yes: Alert, Oriented to Person, Oriented to Place, Oriented to Time Eyes: Yes: LIBBY Speech: Other (Loud) Mini Mental Exam: Follows 2 step commands, refuses rest of exam. Agitated Response to light touch: Normal Response to pain prick: Normal Motor Strength: 5/5: Left Arm, Right Arm, Left Leg, Right Leg Gait: Deferred Imaging - Results Cat Scan: Report Reviewed (Left post. temp/occipital encephalomalacia) Assessment/Plan Seizures- toxic /metabolic vs prior structural disaese ( left temporal encephalomalacia) vs NON -epileptical events in the setting of ETOH withdrawal and less likely opiate withdrawl. ?? Benzodiazepine withdrawl. psychiatric undertones Suggest: cont dilantin and phenobarb , ativan protocol cont methadone FU PSYCH DR KIM
[2019-01-21] MEDS ORDERED: METHADONE 40 MG, METHADONE 30 MG PO ONE (08:30)
[2019-01-21 08:41] LABS: LIPASE 53 U/L (73-393)
[2019-01-21] MEDS ORDERED: BENZTROPINE MESYLATE 0.5 MG TABLET (FP) PO SCH (10:00)
[2019-01-21] MEDS ORDERED: HALOPERIDOL 5 MG TABLET (FP) PO SCH (10:00)
[2019-01-21] MEDS ORDERED: METHADONE HCL 40 MG DISPERSABLE TABLET ONE (10:09)
[2019-01-21] MEDS ORDERED: METHADONE HCL 10 MG TABLET ONE (10:09)
[2019-01-21] MEDS ORDERED: PT OWN MED DRAWER 7, Y5N ONE ×2 (10:10→19:21)
[2019-01-21] MEDS: ASPIRIN 81 MG CHEWABLE TABLETS PO SCH (10:14)
[2019-01-21] MEDS: MUPIROCIN 2% TOPICAL OINTMENT FOR DECOLONIZATION NS SCH ×2 (10:14→21:07)
[2019-01-21] MEDS: PHENYTOIN NA EXTENDED 100 MG CAPSULE (FP) PO SCH (10:16)
[2019-01-21] MEDS: QUEtiapine FUMARATE 200 MG TABLET PO SCH (10:17)
[2019-01-21] MEDS: HEPARIN NA (PORCINE) 5,000 UNITS/ML 1ML VIAL SQ SCH ×2 (11:16→21:06)
--- NOTE | 2019-01-21 11:38 | PN ---
Teaching Attending Note Name of Resident: Rezno Quintanilla ATTENDING PHYSICIAN STATEMENT I saw and evaluated the patient. I reviewed the resident's note and discussed the case with the resident. I agree with the resident's findings and plan as documented. SUBJECTIVE: Patient seen and examined in the ICU. No seizure activity noted. Awake and alert. Agitated. Intake & Output 01/18/19 01/19/19 01/20/19 01/21/19 23:59 23:59 23:59 23:59 Intake Total 120 120 Balance 120 120 Weight 260 lb 260 lb Last Vital Signs Temp Pulse Resp BP Pulse Ox 97.8 F 91 H 14 109/72 97 01/20/19 17:45 01/20/19 21:26 01/21/19 08:00 01/21/19 08:00 01/21/19 02:53 Active Medications Aspirin (Asa -) 81 mg PO DAILY [facility] Last Admin: 01/21/19 10:14 Dose: 81 mg Benztropine Mesylate (Cogentin -) 0.5 mg PO BID [facility] Last Admin: 01/21/19 10:17 Dose: 0.5 mg Chlorhexidine Gluconate (Hibiclens For Decolonization -) 1 applic TP HS [facility] Last Admin: 01/20/19 22:54 Dose: 1 applic Gabapentin (Neurontin -) 300 mg PO TID [facility] Haloperidol (Haldol -) 5 mg PO DAILY [facility] Last Admin: 01/21/19 10:15 Dose: 5 mg Heparin Sodium (Porcine) (Heparin -) 5,000 unit SQ BID [facility] Lorazepam (Ativan -) 0.5 mg PO Q6H [facility] Stop: 01/22/19 23:01 Lorazepam (Ativan -) 0.5 mg PO Q4H PRN PRN Reason: Symptoms of Withdrawal Stop: 01/23/19 00:00 Lorazepam (Ativan -) 0.5 mg PO ONCE ONE Stop: 01/23/19 05:01 Lorazepam (Ativan -) 1 mg PO 0500,1100,1700,2300 [facility] Stop: 01/21/19 23:01 Last Admin: 01/21/19 06:34 Dose: Not Given Lorazepam (Ativan -) 1 mg PO Q4H PRN PRN Reason: Symptoms of Withdrawal Stop: 01/22/19 00:00 Lorazepam (Ativan Injection -) 1 mg IVPUSH Q6H PRN PRN Reason: ANXIETY Mupirocin (Bactroban Ointment (For Decolonization) -) 1 applic NS BID [facility] Stop: 01/25/19 21:59 Last Admin: 01/21/19 10:14 Dose: Not Given Phenobarbital (Phenobarbital -) 90 mg PO BID [facility] Last Admin: 01/21/19 10:15 Dose: 90 mg Phenytoin Sodium (Dilantin -) 300 mg PO DAILY [facility] Last Admin: 01/21/19 10:16 Dose: 300 mg Quetiapine Fumarate (Seroquel -) 400 mg PO DAILY [facility] Last Admin: 01/21/19 10:17 Dose: 400 mg GENERAL: Awake and conversant HEAD: AT/NC EYES: Pupils equal, round and reactive to light, extraocular movements intact, sclera anicteric, conjunctiva clear. No lid lag. EARS, NOSE, THROAT: moist mucous membranes. NECK: Normal range of motion, supple without lymphadenopathy, JVD, or masses. LUNGS: Breath sounds equal, clear to auscultation bilaterally. No wheezes, and no crackles. No accessory muscle use. HEART: RRR S1S2 ABDOMEN: Soft, nontender, not distended, normoactive bowel sounds, no guarding, no rebound, no masses. No hepatomegaly or splenomegaly. MUSCULOSKELETAL: Normal range of motion at all joints. No bony deformities or tenderness. No CVA tenderness. LOWER EXTREMITIES: 2+ pulses, warm, well-perfused. No calf tenderness. No peripheral edema. NEUROLOGICAL: Non-focal PSYCHIATRIC: uncooperative. SKIN: Warm, dry, normal turgor, no rashes or lesions noted. Laboratory Results - last 24 hr 01/19/19 01/19/19 01/20/19 13:30 13:30 16:57 Sodium 143 Potassium 4.2 Chloride 107 Carbon Dioxide 29 Anion Gap 7 L BUN 7.9 Creatinine 0.5 L Est GFR (CKD-EPI)AfAm 159.33 Est GFR (CKD-EPI)NonAf 137.47 POC Glucometer 86 Random Glucose 78 Calcium 8.9 Total Bilirubin 0.4 AST 70 H ALT 137 H Alkaline Phosphatase 69 Creatine Kinase 73 Troponin I < 0.02 Total Protein 6.9 Albumin 3.8 Lipase 53 L Phenobarbital 28 01/20/19 17:46 Sodium Potassium Chloride Carbon Dioxide Anion Gap BUN Creatinine Est GFR (CKD-EPI)AfAm Est GFR (CKD-EPI)NonAf POC Glucometer 80 Random Glucose Calcium Total Bilirubin AST ALT Alkaline Phosphatase Creatine Kinase Troponin I Total Protein Albumin Lipase Phenobarbital ASSESSMENT/PLAN: Seizures likeoly due to Drug withdrawal & Left Encephalomalacia Polysubstance abuse: Cocaine, heroin, marijuana, alcohol HTN Hepatitis C History of latent tuberculosis Asthma by history AEDs per Neuro O2 as needed Fall precautions Seizure precautions Ativan PRN PO as tolerated Neuro evaluation noted EEG ordered VTE prophylaxis Safe & appropriate to monitor on the Floor Dr Lazaro
--- NOTE | 2019-01-21 13:28 | PN ---
[facility] Progress Note Note: consult requested for pt ., found asleep in bed w/ transportation security screener at door reportedly 2/2 aggressive behaviour towards staff . per MR pt completed detox 01/05/19-01/10/19 and rehab 01/10/19 - 01/19/19 . thus detox is not indicated at this time . Recommend psychiatry and neurology evaluation for further tx . Please re-consult if needed
--- NOTE | 2019-01-21 13:58 | PN ---
Progress Note (short form) - Note Progress Note: Patient seen for Psych follow up for ? Homicidal threats last night.Apparantly told Resident that he was hearing voices. Patient is medicated with Anti Seizure Meds and ativan and apperas sedated. MS; alert, responds to verbal requests, does not appear to be hallucinating> Patient denies any suicidal ideas or plans. He can be dramatic, and attention seeking. Cognition intact. Plan; 1)d/c ativan. 2) d/c 1:1. 3) Return to [facility] or Discharge when medically clear. 4) No need for Psych in Patient service.
--- NOTE | 2019-01-21 15:16 | PN ---
Physical Exam: SUBJECTIVE: Patient seen at bedside, somnolent. OBJECTIVE: Vital Signs Period Temp Pulse Resp BP Sys/Rouse Pulse Ox Last 24 Hr 97.5 F-98.4 F 74-92 14-22 96-140/69-96 96-97 GENERAL: The patient is somnolent NECK: supple. LUNGS: Breath sounds reduced, difficult to assess HEART: Regular rate and rhythm, S1, S2 without murmur, rub or gallop. ABDOMEN: Soft, nontender EXTREMITIES: 2+ pulses, warm, well-perfused, no edema. PSYCH: somnolent Laboratory Results - last 24 hr 01/19/19 01/19/19 01/20/19 13:30 13:30 16:57 Sodium 143 Potassium 4.2 Chloride 107 Carbon Dioxide 29 Anion Gap 7 L BUN 7.9 Creatinine 0.5 L Est GFR (CKD-EPI)AfAm 159.33 Est GFR (CKD-EPI)NonAf 137.47 POC Glucometer 86 Random Glucose 78 Calcium 8.9 Total Bilirubin 0.4 AST 70 H ALT 137 H Alkaline Phosphatase 69 Creatine Kinase 73 Troponin I < 0.02 Total Protein 6.9 Albumin 3.8 Lipase 53 L Phenobarbital 28 01/20/19 17:46 Sodium Potassium Chloride Carbon Dioxide Anion Gap BUN Creatinine Est GFR (CKD-EPI)AfAm Est GFR (CKD-EPI)NonAf POC Glucometer 80 Random Glucose Calcium Total Bilirubin AST ALT Alkaline Phosphatase Creatine Kinase Troponin I Total Protein Albumin Lipase Phenobarbital Active Medications Generic Name Dose Route Start Last Admin Trade Name Freq PRN Reason Stop Dose Admin Aspirin 81 mg 01/21/19 10:00 01/21/19 10:14 Asa - PO 81 mg DAILY LEONELA Administration Chlorhexidine Gluconate 1 applic 01/20/19 22:00 01/20/19 22:54 Hibiclens For Decolonization - TP 1 applic HS LEONELA Administration Gabapentin 300 mg 01/21/19 14:00 01/21/19 14:08 Neurontin - PO 300 mg TID LEONELA Administration Heparin Sodium (Porcine) 5,000 unit 01/21/19 10:00 01/21/19 11:16 Heparin - SQ Not Given BID [facility]ON[facility]A Lorazepam 0.5 mg 01/22/19 05:00 Ativan - PO 01/22/19 23:01 Q6H [facility]ONELA Lorazepam 0.5 mg 01/22/19 00:00 Ativan - PO 01/23/19 00:00 Q4H PRN Symptoms of Withdrawal Lorazepam 0.5 mg 01/23/19 05:00 Ativan - PO 01/23/19 05:01 ONCE ONE Lorazepam 1 mg 01/21/19 05:00 01/21/19 14:05 Ativan - PO 01/21/19 23:01 Not Given 0500,1100,1700,2300 LEONELA Lorazepam 1 mg 01/20/19 23:50 Ativan - PO 01/22/19 00:00 Q4H PRN Symptoms of Withdrawal Lorazepam 1 mg 01/21/19 08:19 Ativan Injection - IVPUSH Q6H PRN ANXIETY Mupirocin 1 applic 01/20/19 22:00 01/21/19 10:14 Bactroban Ointment (For Decolonization) - NS 01/25/19 21:59 Not Given BID LEONELA Phenobarbital 90 mg 01/21/19 10:00 01/21/19 10:15 Phenobarbital - PO 90 mg BID [facility] Administration Phenytoin Sodium 300 mg 01/21/19 10:00 01/21/19 10:16 Dilantin - PO 300 mg DAILY [facility] Administration Quetiapine Fumarate 400 mg 01/21/19 10:00 01/21/19 10:17 Seroquel - PO 400 mg DAILY [facility] Administration ASSESSMENT/PLAN: Pt is a 38 y/o M with a significant past medical history of polysubstance abuse (Cocaine, heroine, marijuana, alcohol), HTN, Hepatitis C, latent tuberculosis, Seizure d/o, and asthma who presented initially to [facility] from [facility] due to multiple seizures while at [facility]. #Neuro-Seizure disorder 2/2 Drug withdrawal/Encephalomalacia - CT Head Neg for acute pathology. -Seizure precautions -d/c 1:1 observation per psych - Prolactin level ordered however test is sent out and may take few days to return - d/c ativan per [facility] -Neurology, Dr Park on board. -Loaded with Fosphenytoin 1000mg x1 now. c/w Dilantin 300mg daily starting tomorrow, 01/21/19. -Pt does have encephalomalacia on CT -this may be precipitant of seizures. -Will place patient on Ativan protocol instead of librium in light of pmh of hep c and cirrhosis. -Cont. phenobarbital 90mg bid -d/c Klonopin -Will continue pt on home Phenobarbital, Seroquel. - psych recs return to [facility] and d/c when medically clear. #FEN No Standing fluids Monitor Electrolytes NPO #DVT pxx: HEPSQTID Dispo: We will continue to follow the patient. Thank you for this consultative opportunity. Visit type - Emergency Visit Emergency Visit: Yes ED Registration Date: 01/19/19 Care time: The patient presented to the Emergency Department on the above date and was hospitalized for further evaluation of their emergent condition. - New Patient This patient is new to me today: Yes Date on this admission: 01/21/19 - Critical Care Critical Care patient: Yes Total Critical Care Time (in minutes): 35 Critical Care Statement: The care of this patient involved high complexity decision making to prevent further life threatening deterioration of the patient 's condition and/or to evaluate & treat vital organ system(s) failure or risk of failure. - Discharge Referral Referred to [facility] Med P.C.: No ATTENDING PHYSICIAN STATEMENT I saw and evaluated the patient. I reviewed the resident's note and discussed the case with the resident. I agree with the resident's findings and plan as documented. SUBJECTIVE: OBJECTIVE: ASSESSMENT AND PLAN:
[2019-01-21] MEDS ORDERED: LORazepam 2 MG/ML SDV VIAL IVPUSH ONE ×3 (16:33→23:33)
[2019-01-21] MEDS ORDERED: LORazepam 2 MG/ML SDV VIAL ONE (16:38)
--- NOTE | 2019-01-21 17:35 | PN ---
Progress Note, Physician - Current Medication List Current Medications: Active Medications Aspirin (Asa -) 81 mg PO DAILY [facility] Last Admin: 01/21/19 10:14 Dose: 81 mg Chlorhexidine Gluconate (Hibiclens For Decolonization -) 1 applic TP HS [facility] Last Admin: 01/20/19 22:54 Dose: 1 applic Gabapentin (Neurontin -) 300 mg PO TID [facility] Last Admin: 01/21/19 14:08 Dose: 300 mg Heparin Sodium (Porcine) (Heparin -) 5,000 unit SQ BID [facility] Last Admin: 01/21/19 11:16 Dose: Not Given Lorazepam (Ativan -) 0.5 mg PO Q4H PRN PRN Reason: Symptoms of Withdrawal Stop: 01/23/19 00:00 Multivitamins/Minerals/Vitamin C (Tab-A-Vit -) 1 tab PO DAILY [facility] Mupirocin (Bactroban Ointment (For Decolonization) -) 1 applic NS BID [facility] Stop: 01/25/19 21:59 Last Admin: 01/21/19 10:14 Dose: Not Given Phenobarbital (Phenobarbital -) 90 mg PO BID [facility] Last Admin: 01/21/19 10:15 Dose: 90 mg Phenytoin Sodium (Dilantin -) 300 mg PO DAILY [facility] Last Admin: 01/21/19 10:16 Dose: 300 mg Quetiapine Fumarate (Seroquel -) 400 mg PO DAILY [facility] Last Admin: 01/21/19 10:17 Dose: 400 mg - Objective Vital Signs: Vital Signs Temperature 98.1 F 01/21/19 10:00 Pulse Rate 92 H 01/21/19 16:00 Respiratory Rate 16 01/21/19 16:00 Blood Pressure 107/63 01/21/19 16:00 O2 Sat by Pulse Oximetry (%) 96 01/21/19 12:49 Constitutional: Yes: Calm HENT: Yes: Atraumatic Neck: Yes: Supple Cardiovascular: Yes: Regular Rate and Rhythm Respiratory: Yes: CTA Bilaterally Extremities: Yes: WNL Edema: No Neurological: Yes: Alert, Oriented Labs: CBC, BMP 01/19/19 13:30 01/19/19 13:30 INR, PTT INR 1.03 (0.83-1.09) 01/19/19 13:30 Problem List - Problems (1) Alcohol dependence Assessment/Plan: detox consult reviewed prn ativan for withdrawl Code(s): F10.20 - ALCOHOL DEPENDENCE, UNCOMPLICATED (2) Nicotine dependence Code(s): F17.200 - NICOTINE DEPENDENCE, UNSPECIFIED, UNCOMPLICATED (3) Opioid dependence Code(s): F11.20 - OPIOID DEPENDENCE, UNCOMPLICATED (4) Substance abuse Code(s): F19.10 - OTHER PSYCHOACTIVE SUBSTANCE ABUSE, UNCOMPLICATED (5) Substance-induced sleep disorder Code(s): F19.982 - OTH PSYCHOACTIVE SUBSTANCE USE, UNSP W SLEEP DISORDER (6) Seizure disorder Assessment/Plan: continue meds as per neuro Code(s): G40.909 - EPILEPSY, UNSP, NOT INTRACTABLE, WITHOUT STATUS EPILEPTICUS (7) Bipolar disorder Assessment/Plan: psych eval on meds Code(s): F31.9 - BIPOLAR DISORDER, UNSPECIFIED
[2019-01-21] MEDS: CHLORHEXIDINE GLUCONATE 4% CLEANSER FOR DECOLONIZATION TP SCH (21:06)
[2019-01-21] MEDS: clonazePAM 0.5 MG TABLET PO SCH (23:42)
[2019-01-21] MEDS: MELATONIN 5 MG TABLETS PO PRN (23:43)
[2019-01-22] MEDS ORDERED: LORazepam 1 MG TABLET PO SCH (05:00)
[2019-01-22] MEDS ORDERED: chlordiazePOXIDE HCL 25 MG CAPSULE PO SCH (05:00)
[2019-01-22] MEDS ORDERED: LORazepam 0.5 MG TABLET PO SCH (05:00)
[2019-01-22] MEDS: clonazePAM 0.5 MG TABLET PO SCH ×4 (06:03→21:00)
[2019-01-22] MEDS: GABAPENTIN 300 MG CAPSULE (FP) PO SCH ×3 (06:03→21:00)
[2019-01-22] MEDS ORDERED: PT OWN MED DRAWER 7, Y5N ONE (10:02)
[2019-01-22] MEDS: PHENYTOIN NA EXTENDED 100 MG CAPSULE (FP) PO SCH (10:04)
[2019-01-22] MEDS: PHENobarbital 30 MG TABLET PO SCH ×2 (10:05→21:03)
[2019-01-22] MEDS: HEPARIN NA (PORCINE) 5,000 UNITS/ML 1ML VIAL SQ SCH ×2 (10:06→21:00)
[2019-01-22] MEDS: MULTIVITAMINS (DAILY MVI) TABLET (FP) PO SCH (10:06)
[2019-01-22] MEDS: QUEtiapine FUMARATE 200 MG TABLET PO SCH (10:06)
[2019-01-22] MEDS: ASPIRIN 81 MG CHEWABLE TABLETS PO SCH (10:06)
[2019-01-22] MEDS: MUPIROCIN 2% TOPICAL OINTMENT FOR DECOLONIZATION NS SCH ×2 (10:11→21:00)
--- NOTE | 2019-01-22 10:14 | PN ---
Teaching Attending Note Name of Resident: Emely Duncan ATTENDING PHYSICIAN STATEMENT I saw and evaluated the patient. I reviewed the resident's note and discussed the case with the resident. I agree with the resident's findings and plan as documented. SUBJECTIVE: Pt seen and examined in the ICU. No events overnight. Sleeping comfortably. OBJECTIVE: Vital Signs Period Temp Pulse Resp BP Sys/Rouse Pulse Ox Last 24 Hr 98.3 F 84-92 14-16 107-121/63-84 96-96 Intake & Output 01/19/19 01/20/19 01/21/19 01/22/19 23:59 23:59 23:59 23:59 Intake Total 120 1180 Balance 120 1180 Weight 117.934 kg 117.934 kg Gen: NAD at rest Heart: RRR Lung: decreased breath sounds at the bases Abd: soft, nontender Ext: no edema CBC, BMP 01/19/19 13:30 01/19/19 13:30 Active Medications Aspirin (Asa -) 81 mg PO DAILY [facility] Last Admin: 01/22/19 10:06 Dose: 81 mg Chlorhexidine Gluconate (Hibiclens For Decolonization -) 1 applic TP HS [facility] Last Admin: 01/21/19 21:06 Dose: Not Given Clonazepam (Klonopin -) 1 mg PO TID [facility] Last Admin: 01/22/19 10:05 Dose: 1 mg Gabapentin (Neurontin -) 300 mg PO TID [facility] Last Admin: 01/22/19 06:03 Dose: Not Given Heparin Sodium (Porcine) (Heparin -) 5,000 unit SQ BID [facility] Last Admin: 01/22/19 10:06 Dose: 5,000 unit Lorazepam (Ativan -) 0.5 mg PO Q4H PRN PRN Reason: Symptoms of Withdrawal Stop: 01/23/19 00:00 Last Admin: 01/22/19 10:05 Dose: 0.5 mg Melatonin (Melatonin) 5 mg PO HS PRN PRN Reason: INSOMNIA Last Admin: 01/21/19 23:43 Dose: 5 mg Multivitamins/Minerals/Vitamin C (Tab-A-Vit -) 1 tab PO DAILY [facility] Last Admin: 01/22/19 10:06 Dose: 1 tab Mupirocin (Bactroban Ointment (For Decolonization) -) 1 applic NS BID [facility] Stop: 01/25/19 21:59 Last Admin: 01/22/19 10:11 Dose: Not Given Phenobarbital (Phenobarbital -) 90 mg PO BID [facility] Last Admin: 01/22/19 10:05 Dose: 90 mg Phenytoin Sodium (Dilantin -) 300 mg PO DAILY [facility] Last Admin: 01/22/19 10:04 Dose: 300 mg Quetiapine Fumarate (Seroquel -) 400 mg PO DAILY [facility] Last Admin: 01/22/19 10:06 Dose: 400 mg ASSESSMENT AND PLAN: Seizures likely due to Drug withdrawal & Left Encephalomalacia Polysubstance abuse: Cocaine, heroin, marijuana, alcohol HTN Hepatitis C History of latent tuberculosis Asthma by history - continue antiepileptics - seizure precautions - PO as tolerated - aspiration precautinos - DVT prophylaxis - can monitor on floor or d/c planning
--- NOTE | 2019-01-22 10:45 | PN ---
Physical Exam: SUBJECTIVE: Patient seen and examined at bedside. Condition 10 called on pt overnight. Refused to be examined this AM. OBJECTIVE: Vital Signs Period Temp Pulse Resp BP Sys/Rouse Pulse Ox Last 24 Hr 97.7 F-98.3 F 79-92 14-16 107-121/63-84 96-96 Refused my examination ASSESSMENT/PLAN: 38 y/o M with PMH polysubstance abuse (Cocaine, heroine, marijuana, alcohol), HTN, Hepatitis C, latent tuberculosis, Seizure d/o, and asthma who presented initially to [facility] from [facility] due to multiple seizures. #Neuro Seizure disorder 2/2 Benzo withdrawal/Encephalomalacia -CT (-) -sz precautions -ativan 0.5 q4h PRN ; also w/ hx hep C, cirrhosis -d/c 1:1 observation per psych -Neurology: Dr Park on board. -s/p Fosphenytoin [id number] x1. c/w Dilantin 300mg daily, phenobarbital 90mg BID -klonopin 1mg TID cont'd as pt possibly withdrawing from benzos. longer detox. #Polysubstance abuse -pt states he is on methadone 70mg PO qd. [facility] called; pt is not registered in methadone clinic there. #F/E/N No Standing fluids Monitor Electrolytes regular diet #PPX Hep sq TID #Dispo for transfer to floor. awaiting bed Visit type - Emergency Visit Emergency Visit: No - New Patient This patient is new to me today: Yes Date on this admission: 01/22/19 - Critical Care Critical Care patient: Yes Total Critical Care Time (in minutes): 45 Critical Care Statement: The care of this patient involved high complexity decision making to prevent further life threatening deterioration of the patient 's condition and/or to evaluate & treat vital organ system(s) failure or risk of failure.
[2019-01-22 11:07] LABS: ALBUMIN 3.7 g/dl (3.4-5.0); BILIRUBIN,TOTAL 0.4 mg/dL (0.2-1); BLOOD UREA NITROGEN 11.9 mg/dL (7-18); CALCIUM 8.8 mg/dL (8.5-10.1); CREATININE 0.6 mg/dL (0.55-1.3); MAGNESIUM 2.1 mg/dL (1.8-2.4); PHOSPHOROUS 3.2 mg/dL (2.5-4.9); POTASSIUM 4.1 mmol/L (3.5-5.1); TOT PROT 6.9 g/dl (6.4-8.2)
[2019-01-22] MEDS: buPROPion HCL 100 MG TABLET PO SCH ×2 (11:36→21:01)
--- NOTE | 2019-01-22 12:08 | PN ---
Progress Note, Physician - Current Medication List Current Medications: Active Medications Aspirin (Asa -) 81 mg PO DAILY [facility] Last Admin: 01/22/19 10:06 Dose: 81 mg Bupropion HCl (Wellbutrin -) 100 mg PO BID [facility] Last Admin: 01/22/19 11:36 Dose: 100 mg Chlorhexidine Gluconate (Hibiclens For Decolonization -) 1 applic TP HS [facility] Last Admin: 01/21/19 21:06 Dose: Not Given Clonazepam (Klonopin -) 1 mg PO TID [facility] Last Admin: 01/22/19 10:05 Dose: 1 mg Gabapentin (Neurontin -) 300 mg PO TID [facility] Last Admin: 01/22/19 06:03 Dose: Not Given Heparin Sodium (Porcine) (Heparin -) 5,000 unit SQ BID [facility] Last Admin: 01/22/19 10:06 Dose: 5,000 unit Lorazepam (Ativan -) 0.5 mg PO Q4H PRN PRN Reason: Symptoms of Withdrawal Stop: 01/23/19 00:00 Last Admin: 01/22/19 10:05 Dose: 0.5 mg Melatonin (Melatonin) 5 mg PO HS PRN PRN Reason: INSOMNIA Last Admin: 01/21/19 23:43 Dose: 5 mg Multivitamins/Minerals/Vitamin C (Tab-A-Vit -) 1 tab PO DAILY [facility] Last Admin: 01/22/19 10:06 Dose: 1 tab Mupirocin (Bactroban Ointment (For Decolonization) -) 1 applic NS BID [facility] Stop: 01/25/19 21:59 Last Admin: 01/22/19 10:11 Dose: Not Given Phenobarbital (Phenobarbital -) 90 mg PO BID [facility] Last Admin: 01/22/19 10:05 Dose: 90 mg Phenytoin Sodium (Dilantin -) 300 mg PO DAILY [facility] Last Admin: 01/22/19 10:04 Dose: 300 mg Quetiapine Fumarate (Seroquel -) 400 mg PO DAILY [facility] Last Admin: 01/22/19 10:06 Dose: 400 mg - Objective Vital Signs: Vital Signs Temperature 97.7 F 01/22/19 10:00 Pulse Rate 79 01/22/19 10:00 Respiratory Rate 15 01/21/19 18:00 Blood Pressure 111/80 01/22/19 10:00 O2 Sat by Pulse Oximetry (%) 96 01/21/19 18:20 Constitutional: Yes: No Distress HENT: Yes: Atraumatic Neck: Yes: Supple Cardiovascular: Yes: Regular Rate and Rhythm Respiratory: Yes: CTA Bilaterally Gastrointestinal: Yes: Normal Bowel Sounds Extremities: Yes: WNL Labs: CBC, BMP 01/19/19 13:30 01/22/19 10:25 INR, PTT INR 1.03 (0.83-1.09) 01/19/19 13:30 Problem List - Problems (1) Alcohol dependence Assessment/Plan: detox consult reviewed prn ativan for withdrawl Code(s): F10.20 - ALCOHOL DEPENDENCE, UNCOMPLICATED (2) Nicotine dependence Code(s): F17.200 - NICOTINE DEPENDENCE, UNSPECIFIED, UNCOMPLICATED (3) Opioid dependence Code(s): F11.20 - OPIOID DEPENDENCE, UNCOMPLICATED (4) Substance abuse Code(s): F19.10 - OTHER PSYCHOACTIVE SUBSTANCE ABUSE, UNCOMPLICATED (5) Substance-induced sleep disorder Code(s): F19.982 - OTH PSYCHOACTIVE SUBSTANCE USE, UNSP W SLEEP DISORDER (6) Seizure disorder Assessment/Plan: continue meds as per neuro Code(s): G40.909 - EPILEPSY, UNSP, NOT INTRACTABLE, WITHOUT STATUS EPILEPTICUS (7) Bipolar disorder Assessment/Plan: psych eval on meds Code(s): F31.9 - BIPOLAR DISORDER, UNSPECIFIED
[2019-01-22] MEDS ORDERED: METHADONE HCL 10 MG TABLET ONE (13:14)
[2019-01-22] MEDS ORDERED: METHADONE HCL 10 MG TABLET (FOR DETOX USE ONLY) PO SCH (13:15)
[2019-01-22] MEDS ORDERED: METHADONE HCL 40 MG DISPERSABLE TABLET ONE (13:15)
[2019-01-22] MEDS: METHADONE 40 MG, METHADONE 30 MG PO SCH (13:19)
[2019-01-22] MEDS ORDERED: LORazepam 0.5 MG TABLET PO PRN ×2 (15:21)
[2019-01-22] MEDS: MELATONIN 5 MG TABLETS PO PRN (21:00)
[2019-01-22] MEDS: CHLORHEXIDINE GLUCONATE 4% CLEANSER FOR DECOLONIZATION TP SCH (21:01)
[2019-01-23] MEDS ORDERED: LORazepam 0.5 MG TABLET PO PRN
[2019-01-23] MEDS ORDERED: chlordiazePOXIDE HCL 10 MG CAPSULE PO PRN
[2019-01-23] MEDS ORDERED: LORazepam 0.5 MG TABLET PO SCH (05:00)
[2019-01-23] MEDS ORDERED: chlordiazePOXIDE HCL 10 MG CAPSULE PO SCH (05:00)
[2019-01-23] MEDS ORDERED: LORazepam 0.5 MG TABLET PO ONE (05:00)
[2019-01-23] MEDS ORDERED: METHADONE HCL 10 MG TABLET ONE (05:57)
[2019-01-23] MEDS ORDERED: METHADONE HCL 40 MG DISPERSABLE TABLET ONE (05:57)
[2019-01-23] MEDS: METHADONE 40 MG, METHADONE 30 MG PO SCH (06:40)
[2019-01-23] MEDS: GABAPENTIN 300 MG CAPSULE (FP) PO SCH ×3 (06:40→21:21)
[2019-01-23] MEDS: clonazePAM 0.5 MG TABLET PO SCH ×3 (06:40→21:20)
[2019-01-23 07:46] LABS: MAGNESIUM 2.4 mg/dL (1.8-2.4); PHOSPHOROUS 4.3 mg/dL (2.5-4.9)
[2019-01-23] MEDS: LORazepam 0.5 MG TABLET PO PRN ×3 (07:50→21:22)
[2019-01-23] MEDS ORDERED: PT OWN MED DRAWER 7, Y5N ONE (08:56)
[2019-01-23] MEDS: MULTIVITAMINS (DAILY MVI) TABLET (FP) PO SCH (09:22)
[2019-01-23] MEDS: PHENobarbital 30 MG TABLET PO SCH ×2 (09:23→21:21)
[2019-01-23] MEDS: ASPIRIN 81 MG CHEWABLE TABLETS PO SCH (09:24)
[2019-01-23] MEDS: MUPIROCIN 2% TOPICAL OINTMENT FOR DECOLONIZATION NS SCH ×2 (09:24→21:20)
[2019-01-23] MEDS: PHENYTOIN NA EXTENDED 100 MG CAPSULE (FP) PO SCH (09:24)
[2019-01-23] MEDS: HEPARIN NA (PORCINE) 5,000 UNITS/ML 1ML VIAL SQ SCH ×2 (09:24→21:20)
[2019-01-23] MEDS: QUEtiapine FUMARATE 200 MG TABLET PO SCH (09:26)
[2019-01-23] MEDS: buPROPion HCL 100 MG TABLET PO SCH ×2 (09:27→21:22)
--- NOTE | 2019-01-23 10:28 | PN ---
Teaching Attending Note Name of Resident: Leland Henriquez ATTENDING PHYSICIAN STATEMENT I saw and evaluated the patient. I reviewed the resident's note and discussed the case with the resident. I agree with the resident's findings and plan as documented. SUBJECTIVE: Pt seen and examined in the ICU. No events overnight, no specific complaints. OBJECTIVE: Vital Signs Period Temp Pulse Resp BP Sys/Rouse Pulse Ox Last 24 Hr 97 F 62-92 16-21 97-112/63-85 Intake & Output 01/20/19 01/21/19 01/22/19 01/23/19 23:59 23:59 23:59 23:59 Intake Total 120 1180 200 Output Total 600 Balance 120 1180 -600 200 Weight 117.934 kg Gen: NAD at rest Heart: RRR Lung: decreased breath sounds at the bases Abd: soft, nontender Ext: no edema CBC, BMP 01/19/19 13:30 01/22/19 10:25 Active Medications Aspirin (Asa -) 81 mg PO DAILY [facility] Last Admin: 01/23/19 09:24 Dose: 81 mg Bupropion HCl (Wellbutrin -) 100 mg PO BID [facility] Last Admin: 01/23/19 09:27 Dose: 100 mg Chlorhexidine Gluconate (Hibiclens For Decolonization -) 1 applic TP HS [facility] Last Admin: 01/22/19 21:01 Dose: Not Given Clonazepam (Klonopin -) 1 mg PO TID [facility] Last Admin: 01/23/19 06:40 Dose: 1 mg Gabapentin (Neurontin -) 300 mg PO TID [facility] Last Admin: 01/23/19 06:40 Dose: 300 mg Heparin Sodium (Porcine) (Heparin -) 5,000 unit SQ BID [facility] Last Admin: 01/23/19 09:24 Dose: 5,000 unit Lorazepam (Ativan -) 0.5 mg PO Q4H PRN PRN Reason: ANXIETY Last Admin: 01/23/19 07:50 Dose: 0.5 mg Melatonin (Melatonin) 5 mg PO HS PRN PRN Reason: INSOMNIA Last Admin: 01/22/19 21:00 Dose: 5 mg Methadone HCl 40 mg/ Methadone (HCl 30 mg) 70 mg PO DAILY@0600 [facility] Last Admin: 01/23/19 06:40 Dose: 70 mg Multivitamins/Minerals/Vitamin C (Tab-A-Vit -) 1 tab PO DAILY [facility] Last Admin: 01/23/19 09:22 Dose: 1 tab Mupirocin (Bactroban Ointment (For Decolonization) -) 1 applic NS BID [facility] Stop: 01/25/19 21:59 Last Admin: 01/23/19 09:24 Dose: 1 applic Phenobarbital (Phenobarbital -) 90 mg PO BID [facility] Last Admin: 01/23/19 09:23 Dose: 90 mg Phenytoin Sodium (Dilantin -) 300 mg PO DAILY [facility] Last Admin: 01/23/19 09:24 Dose: 300 mg Quetiapine Fumarate (Seroquel -) 400 mg PO DAILY [facility] Last Admin: 01/23/19 09:26 Dose: 400 mg ASSESSMENT AND PLAN: Seizures likely due to Drug withdrawal & Left Encephalomalacia Polysubstance abuse: Cocaine, heroin, marijuana, alcohol HTN Hepatitis C History of latent tuberculosis Asthma by history - continue antiepileptics - seizure precautions - PO as tolerated - aspiration precautinos - DVT prophylaxis - can monitor on floor or d/c planning
--- NOTE | 2019-01-23 10:31 | PN ---
Physical Exam: SUBJECTIVE: Patient seen and examined in the ICU. No acute events overnight. OBJECTIVE: Vital Signs Period Temp Pulse Resp BP Sys/Rouse Pulse Ox Last 24 Hr 97 F 62-92 16-21 97-112/63-85 GENERAL: The patient is awake, alert, and fully oriented, in no acute distress. HEAD: Normal with no signs of trauma. EYES: PERRL, extraocular movements intact, sclera anicteric, conjunctiva clear. No ptosis. ENT: Ears normal, nares patent, oropharynx clear without exudates, moist mucous membranes. NECK: Trachea midline, full range of motion, supple. LUNGS: Breath sounds equal, clear to auscultation bilaterally, no wheezes, no crackles, no accessory muscle use. HEART: Regular rate and rhythm, S1, S2 without murmur, rub or gallop. ABDOMEN: Soft, nontender, nondistended, normoactive bowel sounds, no guarding, no rebound, no hepatosplenomegaly, no masses. EXTREMITIES: 2+ pulses, warm, well-perfused, no edema. NEUROLOGICAL: Cranial nerves II through XII grossly intact. Normal speech, gait not observed. SKIN: Warm, dry, normal turgor, no rashes or lesions noted Laboratory Results - last 24 hr 01/22/19 01/22/19 01/23/19 10:25 13:32 06:25 Sodium 142 Potassium 4.1 Chloride 107 Carbon Dioxide 28 Anion Gap 7 L BUN 11.9 Creatinine 0.6 Est GFR (CKD-EPI)AfAm 147.82 Est GFR (CKD-EPI)NonAf 127.55 POC Glucometer 168 Random Glucose 83 Calcium 8.8 Phosphorus 3.2 4.3 Magnesium 2.1 2.4 Total Bilirubin 0.4 AST 70 H ALT 140 H Alkaline Phosphatase 74 Total Protein 6.9 Albumin 3.7 Active Medications Generic Name Dose Route Start Last Admin Trade Name Freq PRN Reason Stop Dose Admin Aspirin 81 mg 01/23/19 10:00 01/23/19 09:24 Asa - PO 81 mg DAILY LEONELA Administration Bupropion HCl 100 mg 01/22/19 10:30 01/23/19 09:27 Wellbutrin - PO 100 mg BID LEONELA Administration Chlorhexidine Gluconate 1 applic 01/22/19 22:00 01/22/19 21:01 Hibiclens For Decolonization - TP Not Given HS LEONELA Clonazepam 1 mg 01/21/19 23:45 01/23/19 06:40 Klonopin - PO 1 mg TID LEONELA Administration Gabapentin 300 mg 01/22/19 22:00 01/23/19 06:40 Neurontin - PO 300 mg TID LEONELA Administration Heparin Sodium (Porcine) 5,000 unit 01/22/19 22:00 01/23/19 09:24 Heparin - SQ 5,000 unit BID LEONELA Administration Lorazepam 0.5 mg 01/23/19 07:20 01/23/19 07:50 Ativan - PO 0.5 mg Q4H PRN Administration ANXIETY Melatonin 5 mg 01/21/19 23:33 01/22/19 21:00 Melatonin PO 5 mg HS PRN Administration INSOMNIA Methadone HCl 40 mg/ Methadone 70 mg 01/22/19 13:15 01/23/19 06:40 HCl 30 mg PO 70 mg DAILY@0600 LEONELA Administration Multivitamins/Minerals/Vitamin C 1 tab 01/22/19 10:00 01/23/19 09:22 Tab-A-Vit - PO 1 tab DAILY LEONELA Administration Mupirocin 1 applic 01/22/19 22:00 01/23/19 09:24 Bactroban Ointment (For Decolonization) - NS 01/25/19 21:59 1 applic BID LEONELA Administration Phenobarbital 90 mg 01/22/19 22:00 01/23/19 09:23 Phenobarbital - PO 90 mg BID LEONELA Administration Phenytoin Sodium 300 mg 01/23/19 10:00 01/23/19 09:24 Dilantin - PO 300 mg DAILY LEONELA Administration Quetiapine Fumarate 400 mg 01/23/19 10:00 01/23/19 09:26 Seroquel - PO 400 mg DAILY LEONELA Administration ASSESSMENT/PLAN: 38 y/o M with PMH polysubstance abuse (Cocaine, heroine, marijuana, alcohol), HTN, Hepatitis C, latent tuberculosis, Seizure d/o, and asthma who presented initially to [facility] from [facility] due to multiple seizures. #Neuro Seizure disorder 2/2 Benzo withdrawal/Encephalomalacia -[facility] (-) -sz precautions -ativan 0.5 q4h PRN -d/c 1:1 observation per psych -Neurology: Dr Park on board. -s/p Fosphenytoin load 1000mg x1. c/w Dilantin 300mg daily, phenobarbital 90mg BID -klonopin 1mg TID cont'd as pt possibly withdrawing from benzos. longer detox. #Polysubstance abuse -per [facility] nurse, pt on methadone 70 mg PO QD #F/E/N No Standing fluids Monitor Electrolytes regular diet #PPX Hep 5000 units sq TID #Dispo transfer to floor. awaiting bed social work consult for housing instability Visit type - Emergency Visit Emergency Visit: No - New Patient This patient is new to me today: No - Critical Care Critical Care patient: Yes Total Critical Care Time (in minutes): 35 Critical Care Statement: The care of this patient involved high complexity decision making to prevent further life threatening deterioration of the patient 's condition and/or to evaluate & treat vital organ system(s) failure or risk of failure. ATTENDING PHYSICIAN STATEMENT I saw and evaluated the patient. I reviewed the resident's note and discussed the case with the resident. I agree with the resident's findings and plan as documented. SUBJECTIVE: OBJECTIVE: ASSESSMENT AND PLAN:
--- NOTE | 2019-01-23 13:52 | PN ---
Progress Note (short form) - Note Progress Note: Patient seen for Psych eval. Has been awake, alert, demanding things fro staff. Reports he is sick etc. Patient clearly isnot hallucinating or delusional. very demonstrative and attentin seeking. Patient easily slipped off fronm bed and started shaking on the floor. Few minutes later began talking about anxiety, asking for more meds. Patient is Homeless, wants MD, new Place to live. Constantly demanding MEds. PLan; 1) Patient is not actively Psychotic. delusional or depressed at this time. 2) Discharge to [facility] when deemed Medically stable. 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
--- NOTE | 2019-01-23 14:33 | PN ---
Progress Note, Physician History of Present Illness: events noted spoke with residents pt is on one to one - Current Medication List Current Medications: Active Medications Aspirin (Asa -) 81 mg PO DAILY [facility] Last Admin: 01/23/19 09:24 Dose: 81 mg Bupropion HCl (Wellbutrin -) 100 mg PO BID [facility] Last Admin: 01/23/19 09:27 Dose: 100 mg Chlorhexidine Gluconate (Hibiclens For Decolonization -) 1 applic TP HS [facility] Last Admin: 01/22/19 21:01 Dose: Not Given Clonazepam (Klonopin -) 1 mg PO TID [facility] Last Admin: 01/23/19 13:57 Dose: 1 mg Gabapentin (Neurontin -) 300 mg PO TID [facility] Last Admin: 01/23/19 13:55 Dose: 300 mg Heparin Sodium (Porcine) (Heparin -) 5,000 unit SQ BID [facility] Last Admin: 01/23/19 09:24 Dose: 5,000 unit Lorazepam (Ativan -) 0.5 mg PO Q4H PRN PRN Reason: ANXIETY Last Admin: 01/23/19 13:57 Dose: 0.5 mg Melatonin (Melatonin) 5 mg PO HS PRN PRN Reason: INSOMNIA Last Admin: 01/22/19 21:00 Dose: 5 mg Methadone HCl 40 mg/ Methadone (HCl 30 mg) 70 mg PO DAILY@0600 [facility] Last Admin: 01/23/19 06:40 Dose: 70 mg Multivitamins/Minerals/Vitamin C (Tab-A-Vit -) 1 tab PO DAILY [facility] Last Admin: 01/23/19 09:22 Dose: 1 tab Mupirocin (Bactroban Ointment (For Decolonization) -) 1 applic NS BID [facility] Stop: 01/25/19 21:59 Last Admin: 01/23/19 09:24 Dose: 1 applic Phenobarbital (Phenobarbital -) 90 mg PO BID [facility] Last Admin: 01/23/19 09:23 Dose: 90 mg Phenytoin Sodium (Dilantin -) 300 mg PO DAILY [facility] Last Admin: 01/23/19 09:24 Dose: 300 mg Quetiapine Fumarate (Seroquel -) 400 mg PO DAILY [facility] Last Admin: 01/23/19 09:26 Dose: 400 mg - Objective Vital Signs: Vital Signs Temperature 97 F L 01/22/19 20:30 Pulse Rate 87 01/22/19 20:30 Respiratory Rate 16 01/22/19 20:39 Blood Pressure 110/85 01/23/19 07:47 O2 Sat by Pulse Oximetry (%) 96 01/21/19 18:20 Constitutional: Yes: Anxious HENT: Yes: Atraumatic Neck: Yes: Supple Cardiovascular: Yes: Regular Rate and Rhythm Respiratory: Yes: CTA Bilaterally Extremities: Yes: WNL Edema: No Neurological: Yes: Alert Labs: CBC, BMP 01/19/19 13:30 01/22/19 10:25 INR, PTT INR 1.03 (0.83-1.09) 01/19/19 13:30 Problem List - Problems (1) Alcohol dependence Assessment/Plan: detox consult reviewed prn ativan for withdrawl Code(s): F10.20 - ALCOHOL DEPENDENCE, UNCOMPLICATED (2) Nicotine dependence Code(s): F17.200 - NICOTINE DEPENDENCE, UNSPECIFIED, UNCOMPLICATED (3) Opioid dependence Code(s): F11.20 - OPIOID DEPENDENCE, UNCOMPLICATED (4) Substance abuse Code(s): F19.10 - OTHER PSYCHOACTIVE SUBSTANCE ABUSE, UNCOMPLICATED (5) Substance-induced sleep disorder Code(s): F19.982 - OTH PSYCHOACTIVE SUBSTANCE USE, UNSP W SLEEP DISORDER (6) Seizure disorder Assessment/Plan: continue meds as per neuro Code(s): G40.909 - EPILEPSY, UNSP, NOT INTRACTABLE, WITHOUT STATUS EPILEPTICUS (7) Bipolar disorder Assessment/Plan: psych eval on meds Code(s): F31.9 - BIPOLAR DISORDER, UNSPECIFIED Assessment/Plan NEED TO BE REEVALUATED BY PSYCH cc time 30 min
[2019-01-23] MEDS ORDERED: LORazepam 2 MG/ML SDV VIAL ONE (16:29)
--- NOTE | 2019-01-23 16:41 | PN ---
Progress Note (short form) - Note Progress Note: Per nursing staff, patient attempted to hang himself with a bedsheet from ceiling, and cut himself on the edge of the bedside table. Patient is verbally abusive toward staff. Given 2 mg of Ativan IM to aid patient in calming down. Security at bedside, providing verbal support to patient.
[2019-01-23] MEDS: CHLORHEXIDINE GLUCONATE 4% CLEANSER FOR DECOLONIZATION TP SCH (21:20)
[2019-01-23] MEDS: MELATONIN 5 MG TABLETS PO PRN (21:23)
[2019-01-23] MEDS: IBUPROFEN 400 MG TABLET (FP) PO PRN (22:09)
[2019-01-24] MEDS ORDERED: chlordiazePOXIDE HCL 10 MG CAPSULE PO SCH (05:00)
[2019-01-24] MEDS ORDERED: LORazepam 0.5 MG TABLET PO ONE ×2 (05:00→11:19)
[2019-01-24] MEDS ORDERED: METHADONE HCL 10 MG TABLET ONE ×2 (05:58→10:34)
[2019-01-24] MEDS ORDERED: METHADONE HCL 40 MG DISPERSABLE TABLET ONE ×2 (05:59→10:34)
[2019-01-24] MEDS: METHADONE 40 MG, METHADONE 30 MG PO SCH ×2 (06:01→10:00)
[2019-01-24] MEDS: GABAPENTIN 300 MG CAPSULE (FP) PO SCH ×3 (06:02→21:12)
[2019-01-24] MEDS: clonazePAM 0.5 MG TABLET PO SCH ×4 (06:02→21:11)
[2019-01-24] MEDS: LORazepam 0.5 MG TABLET PO PRN ×5 (06:03→23:15)
[2019-01-24] MEDS ORDERED: PT OWN MED DRAWER 7, Y5N ONE (09:57)
[2019-01-24] MEDS: PHENYTOIN NA EXTENDED 100 MG CAPSULE (FP) PO SCH (09:59)
[2019-01-24] MEDS: ASPIRIN 81 MG CHEWABLE TABLETS PO SCH (09:59)
[2019-01-24] MEDS: MULTIVITAMINS (DAILY MVI) TABLET (FP) PO SCH (09:59)
[2019-01-24] MEDS: PHENobarbital 30 MG TABLET PO SCH ×2 (09:59→21:12)
[2019-01-24] MEDS: HEPARIN NA (PORCINE) 5,000 UNITS/ML 1ML VIAL SQ SCH ×2 (10:00→21:09)
[2019-01-24] MEDS: QUEtiapine FUMARATE 200 MG TABLET PO SCH (10:00)
[2019-01-24] MEDS ORDERED: METHADONE HCL 10 MG TABLET (FOR DETOX USE ONLY) PO ONE (10:54)
[2019-01-24] MEDS ORDERED: clonazePAM 0.5 MG TABLET PO ONE (10:54)
[2019-01-24] MEDS ORDERED: LORazepam 2 MG/ML SDV VIAL IVPUSH PRN (10:56)
--- NOTE | 2019-01-24 11:08 | PN ---
Teaching Attending Note Name of Resident: Renzo Quintanilla ATTENDING PHYSICIAN STATEMENT I saw and evaluated the patient. I reviewed the resident's note and discussed the case with the resident. I agree with the resident's findings and plan as documented. SUBJECTIVE: Pt seen and examined in the ICU. Tried to cut wrists yesterday. Combative, abusive towards staff. OBJECTIVE: Vital Signs Period Temp Pulse Resp BP Sys/Rouse Pulse Ox Last 24 Hr 98 F 68-82 15-18 104-123/72-77 Intake & Output 01/21/19 01/22/19 01/23/19 01/24/19 23:59 23:59 23:59 23:59 Intake Total 1180 200 Output Total 600 Balance 1180 -600 200 Weight 117.934 kg Gen: agitated Heart: RRR Lung: decreased breath sounds at the bases Abd: soft, nontender Ext: no edema CBC, BMP 01/19/19 13:30 01/22/19 10:25 Active Medications Aspirin (Asa -) 81 mg PO DAILY [facility] Last Admin: 01/24/19 09:59 Dose: 81 mg Bupropion HCl (Wellbutrin -) 100 mg PO BID [facility] Last Admin: 01/23/19 21:22 Dose: 100 mg Chlorhexidine Gluconate (Hibiclens For Decolonization -) 1 applic TP HS [facility] Last Admin: 01/23/19 21:20 Dose: 1 applic Clonazepam (Klonopin -) 1 mg PO TID [facility] Last Admin: 01/24/19 10:38 Dose: 1 mg Clonazepam (Klonopin -) 1 mg PO ONCE ONE Stop: 01/24/19 10:55 Gabapentin (Neurontin -) 300 mg PO TID [facility] Last Admin: 01/24/19 06:02 Dose: 300 mg Heparin Sodium (Porcine) (Heparin -) 5,000 unit SQ BID [facility] Last Admin: 01/24/19 10:00 Dose: 5,000 unit Ibuprofen (Motrin -) 400 mg PO Q4H PRN PRN Reason: FEVER Last Admin: 01/23/19 22:09 Dose: 400 mg Lorazepam (Ativan -) 0.5 mg PO Q4H PRN PRN Reason: ANXIETY Last Admin: 01/24/19 10:38 Dose: 0.5 mg Lorazepam (Ativan Injection -) 1 mg IVPUSH Q6H PRN PRN Reason: ANXIETY Stop: 01/25/19 10:55 Melatonin (Melatonin) 5 mg PO HS PRN PRN Reason: INSOMNIA Last Admin: 01/23/19 21:23 Dose: 5 mg Methadone HCl 40 mg/ Methadone (HCl 30 mg) 70 mg PO DAILY@0600 [facility] Last Admin: 01/24/19 10:00 Dose: 70 mg Methadone HCl (Dolophine -) 70 mg PO ONCE ONE Stop: 01/24/19 10:55 Last Admin: 01/24/19 11:05 Dose: Not Given Multivitamins/Minerals/Vitamin C (Tab-A-Vit -) 1 tab PO DAILY [facility] Last Admin: 01/24/19 09:59 Dose: 1 tab Mupirocin (Bactroban Ointment (For Decolonization) -) 1 applic NS BID [facility] Stop: 01/25/19 21:59 Last Admin: 01/23/19 21:20 Dose: 1 applic Phenobarbital (Phenobarbital -) 90 mg PO BID [facility] Last Admin: 01/24/19 09:59 Dose: 90 mg Phenytoin Sodium (Dilantin -) 300 mg PO DAILY [facility] Last Admin: 01/24/19 09:59 Dose: 300 mg Quetiapine Fumarate (Seroquel -) 400 mg PO DAILY [facility] Last Admin: 01/24/19 10:00 Dose: 400 mg ASSESSMENT AND PLAN: Seizures likely due to Drug withdrawal & Left Encephalomalacia Polysubstance abuse: Cocaine, heroin, marijuana, alcohol HTN Hepatitis C History of latent tuberculosis Asthma by history - psych f/u - continue antiepileptics - seizure precautions - PO as tolerated - aspiration precautinos - DVT prophylaxis - can monitor on floor or d/c planning
--- NOTE | 2019-01-24 11:27 | PN ---
Physical Exam: SUBJECTIVE: Patient seen in ICU. Pt threw up his AM medications. Pt very loud and aggressive with the nurses. OBJECTIVE: Vital Signs Period Temp Pulse Resp BP Sys/Rouse Pulse Ox Last 24 Hr 98 F 68-82 15-18 104-123/72-77 GENERAL: The patient is awake, alert, and fully oriented, in no acute distress. NECK: supple. LUNGS: Breath sounds equal, clear to auscultation bilaterally, no wheezes, no crackles, no accessory muscle use. HEART: Regular rate and rhythm, S1, S2 without murmur, rub or gallop. PSYCH: aggressive mood Active Medications Generic Name Dose Route Start Last Admin Trade Name Freq PRN Reason Stop Dose Admin Aspirin 81 mg 01/23/19 10:00 01/24/19 09:59 Asa - PO 81 mg DAILY LEONELA Administration Bupropion HCl 100 mg 01/22/19 10:30 01/23/19 21:22 Wellbutrin - PO 100 mg BID LEONELA Administration Chlorhexidine Gluconate 1 applic 01/22/19 22:00 01/23/19 21:20 Hibiclens For Decolonization - TP 1 applic HS LEONELA Administration Clonazepam 1 mg 01/21/19 23:45 01/24/19 10:38 Klonopin - PO 1 mg TID LEONELA Administration Gabapentin 300 mg 01/22/19 22:00 01/24/19 06:02 Neurontin - PO 300 mg TID LEONELA Administration Heparin Sodium (Porcine) 5,000 unit 01/22/19 22:00 01/24/19 10:00 Heparin - SQ 5,000 unit BID LEONELA Administration Ibuprofen 400 mg 01/23/19 21:52 01/23/19 22:09 Motrin - PO 400 mg Q4H PRN Administration FEVER Lorazepam 0.5 mg 01/23/19 07:20 01/24/19 10:38 Ativan - PO 0.5 mg Q4H PRN Administration ANXIETY Melatonin 5 mg 01/21/19 23:33 01/23/19 21:23 Melatonin PO 5 mg HS PRN Administration INSOMNIA Methadone HCl 40 mg/ Methadone 70 mg 01/22/19 13:15 01/24/19 10:00 HCl 30 mg PO 70 mg DAILY@0600 LEONELA Administration Multivitamins/Minerals/Vitamin C 1 tab 01/22/19 10:00 09/30/19 09:59 Tab-A-Vit - PO 1 tab DAILY LEONELA Administration Mupirocin 1 applic 01/22/19 22:00 01/23/19 21:20 Bactroban Ointment (For Decolonization) - NS 01/25/19 21:59 1 applic BID LEONELA Administration Phenobarbital 90 mg 01/22/19 22:00 01/24/19 09:59 Phenobarbital - PO 90 mg BID LEONELA Administration Phenytoin Sodium 300 mg 01/23/19 10:00 01/24/19 09:59 Dilantin - PO 300 mg DAILY LEONELA Administration Quetiapine Fumarate 400 mg 01/23/19 10:00 01/24/19 10:00 Seroquel - PO 400 mg DAILY LEONELA Administration ASSESSMENT/PLAN: This is a 38 y/o M with PMH polysubstance abuse (Cocaine, heroine, marijuana, alcohol), HTN, Hepatitis C, latent tuberculosis, Seizure d/o, and asthma who presented initially to [facility] from [facility] due to multiple seizures. #Neuro->Seizure disorder 2/2 Benzo withdrawal/Encephalomalacia -[facility] (-) -sz precautions -ativan 0.5 q4h PRN -d/c 1:1 observation per psych -Neurology: Dr Park on board. -s/p Fosphenytoin load 1000mg x1. c/w Dilantin 300mg daily, phenobarbital 90mg BID -klonopin 1mg TID cont'd as pt possibly withdrawing from benzos. longer detox. #Polysubstance abuse -per [facility] nurse, pt on methadone 70 mg PO QD #F/E/N No Standing fluids Monitor Electrolytes regular diet #PPX Hep 5000 units sq TID #Dispo transfer to floor. awaiting bed social work consult for housing instability Visit type - Emergency Visit Emergency Visit: Yes ED Registration Date: 01/19/19 Care time: The patient presented to the Emergency Department on the above date and was hospitalized for further evaluation of their emergent condition. - New Patient This patient is new to me today: No - Critical Care Critical Care patient: Yes Total Critical Care Time (in minutes): 35 Critical Care Statement: The care of this patient involved high complexity decision making to prevent further life threatening deterioration of the patient 's condition and/or to evaluate & treat vital organ system(s) failure or risk of failure. - Discharge Referral Referred to [facility] No ATTENDING PHYSICIAN STATEMENT I saw and evaluated the patient. I reviewed the resident's note and discussed the case with the resident. I agree with the resident's findings and plan as documented. SUBJECTIVE: OBJECTIVE: ASSESSMENT AND PLAN:
[2019-01-24] MEDS: MUPIROCIN 2% TOPICAL OINTMENT FOR DECOLONIZATION NS SCH ×2 (11:35→21:11)
[2019-01-24] MEDS: buPROPion HCL 100 MG TABLET PO SCH ×2 (12:23→21:15)
--- NOTE | 2019-01-24 16:55 | PN ---
Progress Note (short form) - Note Progress Note: Patient seen for Psych follow up... Still demanding meds and being manipulative. Says dramatic things to scare staff. patient actually not Suicidal, delusional or hallucinating. REC: 1) patient should be discharged from the Hospital'2) patient has the capacity to sign out AMA.
--- NOTE | 2019-01-24 19:14 | PN ---
Progress Note, Physician History of Present Illness: psych note reviewed spoke to residents - Current Medication List Current Medications: Active Medications Aspirin (Asa -) 81 mg PO DAILY [facility] Last Admin: 01/24/19 09:59 Dose: 81 mg Bupropion HCl (Wellbutrin -) 100 mg PO BID [facility] Last Admin: 01/24/19 12:23 Dose: 100 mg Chlorhexidine Gluconate (Hibiclens For Decolonization -) 1 applic TP HS [facility] Last Admin: 01/23/19 21:20 Dose: 1 applic Clonazepam (Klonopin -) 1 mg PO TID [facility] Last Admin: 01/24/19 15:01 Dose: 1 mg Gabapentin (Neurontin -) 300 mg PO TID [facility] Last Admin: 01/24/19 14:57 Dose: 300 mg Heparin Sodium (Porcine) (Heparin -) 5,000 unit SQ BID [facility] Last Admin: 01/24/19 10:00 Dose: 5,000 unit Ibuprofen (Motrin -) 400 mg PO Q4H PRN PRN Reason: FEVER Last Admin: 01/23/19 22:09 Dose: 400 mg Lorazepam (Ativan -) 0.5 mg PO Q4H PRN PRN Reason: ANXIETY Last Admin: 01/24/19 15:17 Dose: 0.5 mg Melatonin (Melatonin) 5 mg PO HS PRN PRN Reason: INSOMNIA Last Admin: 01/23/19 21:23 Dose: 5 mg Methadone HCl 40 mg/ Methadone (HCl 30 mg) 70 mg PO DAILY@0600 [facility] Last Admin: 01/24/19 10:00 Dose: 70 mg Multivitamins/Minerals/Vitamin C (Tab-A-Vit -) 1 tab PO DAILY [facility] Last Admin: 01/24/19 09:59 Dose: 1 tab Mupirocin (Bactroban Ointment (For Decolonization) -) 1 applic NS BID [facility] Stop: 01/25/19 21:59 Last Admin: 01/24/19 11:35 Dose: 1 applic Phenobarbital (Phenobarbital -) 90 mg PO BID [facility] Last Admin: 01/24/19 09:59 Dose: 90 mg Phenytoin Sodium (Dilantin -) 300 mg PO DAILY [facility] Last Admin: 01/24/19 09:59 Dose: 300 mg Quetiapine Fumarate (Seroquel -) 400 mg PO DAILY [facility] Last Admin: 01/24/19 10:00 Dose: 400 mg - Objective Vital Signs: Vital Signs Temperature 97.7 F 01/24/19 10:30 Pulse Rate 78 01/24/19 11:45 Respiratory Rate 16 01/24/19 16:00 Blood Pressure 118/72 01/24/19 16:00 O2 Sat by Pulse Oximetry (%) 96 01/21/19 18:20 Constitutional: Yes: Calm HENT: Yes: Atraumatic Neck: Yes: Supple Cardiovascular: Yes: Regular Rate and Rhythm Respiratory: Yes: CTA Bilaterally Gastrointestinal: Yes: Normal Bowel Sounds Extremities: Yes: WNL Edema: No Neurological: Yes: Alert Labs: CBC, BMP 01/19/19 13:30 01/22/19 10:25 INR, PTT INR 1.03 (0.83-1.09) 01/19/19 13:30 Problem List - Problems (1) Alcohol dependence Assessment/Plan: detox consult reviewed prn ativan for withdrawl Code(s): F10.20 - ALCOHOL DEPENDENCE, UNCOMPLICATED (2) Nicotine dependence Code(s): F17.200 - NICOTINE DEPENDENCE, UNSPECIFIED, UNCOMPLICATED (3) Opioid dependence Code(s): F11.20 - OPIOID DEPENDENCE, UNCOMPLICATED (4) Substance abuse Code(s): F19.10 - OTHER PSYCHOACTIVE SUBSTANCE ABUSE, UNCOMPLICATED (5) Substance-induced sleep disorder Code(s): F19.982 - OTH PSYCHOACTIVE SUBSTANCE USE, UNSP W SLEEP DISORDER (6) Seizure disorder Assessment/Plan: continue meds as per neuro Code(s): G40.909 - EPILEPSY, UNSP, NOT INTRACTABLE, WITHOUT STATUS EPILEPTICUS (7) Bipolar disorder Assessment/Plan: psych eval reviewed cleared to be dc on meds Code(s): F31.9 - BIPOLAR DISORDER, UNSPECIFIED
[2019-01-24] MEDS: CHLORHEXIDINE GLUCONATE 4% CLEANSER FOR DECOLONIZATION TP SCH (21:11)
[2019-01-24] MEDS: MELATONIN 5 MG TABLETS PO PRN (21:13)
[2019-01-25] MEDS: IBUPROFEN 400 MG TABLET (FP) PO PRN (02:05)
[2019-01-25] MEDS: LORazepam 0.5 MG TABLET PO PRN ×4 (03:16→22:18)
[2019-01-25] MEDS ORDERED: chlordiazePOXIDE HCL 10 MG CAPSULE PO ONE (05:00)
[2019-01-25] MEDS ORDERED: METHADONE HCL 40 MG DISPERSABLE TABLET ONE (06:01)
[2019-01-25] MEDS ORDERED: METHADONE HCL 10 MG TABLET ONE (06:04)
[2019-01-25] MEDS: METHADONE 40 MG, METHADONE 30 MG PO SCH (06:10)
[2019-01-25] MEDS: clonazePAM 0.5 MG TABLET PO SCH ×3 (06:12→21:21)
[2019-01-25] MEDS: GABAPENTIN 300 MG CAPSULE (FP) PO SCH ×3 (06:13→21:21)
[2019-01-25] MEDS: PHENobarbital 30 MG TABLET PO SCH ×2 (10:37→21:22)
[2019-01-25] MEDS: PHENYTOIN NA EXTENDED 100 MG CAPSULE (FP) PO SCH (10:37)
[2019-01-25] MEDS: HEPARIN NA (PORCINE) 5,000 UNITS/ML 1ML VIAL SQ SCH ×2 (10:38→21:22)
[2019-01-25] MEDS: MULTIVITAMINS (DAILY MVI) TABLET (FP) PO SCH (10:38)
[2019-01-25] MEDS: ASPIRIN 81 MG CHEWABLE TABLETS PO SCH (10:38)
[2019-01-25] MEDS: buPROPion HCL 100 MG TABLET PO SCH ×2 (10:39→21:21)
[2019-01-25] MEDS ORDERED: PT OWN MED DRAWER 7, Y5N ONE ×2 (10:46→14:46)
[2019-01-25] MEDS: QUEtiapine FUMARATE 200 MG TABLET PO SCH (10:49)
[2019-01-25] MEDS: MUPIROCIN 2% TOPICAL OINTMENT FOR DECOLONIZATION NS SCH (11:00)
--- NOTE | 2019-01-25 11:16 | PN ---
Teaching Attending Note Name of Resident: Leland Coy ATTENDING PHYSICIAN STATEMENT I saw and evaluated the patient. I reviewed the resident's note and discussed the case with the resident. I agree with the resident's findings and plan as documented. SUBJECTIVE: Pt seen and examined in the ICU. No events overnight, cleared by psychiatry for discharge. OBJECTIVE: Vital Signs Period Temp Pulse Resp BP Sys/Rouse Pulse Ox Last 24 Hr 98.3 F-98.7 F 72-78 15-18 105-125/66-79 Intake & Output 01/22/19 01/23/19 01/24/19 01/25/19 23:59 23:59 23:59 23:59 Intake Total 200 420 300 Output Total 600 50 Balance -600 200 370 300 Weight 109.86 kg Gen: NAD at rest Heart: RRR Lung: decreased breath sounds at the bases Abd: soft, nontender Ext: no edema CBC, BMP 01/19/19 13:30 01/22/19 10:25 Active Medications Aspirin (Asa -) 81 mg PO DAILY [facility] Last Admin: 01/25/19 10:38 Dose: 81 mg Bupropion HCl (Wellbutrin -) 100 mg PO BID [facility] Last Admin: 01/25/19 10:39 Dose: 100 mg Chlorhexidine Gluconate (Hibiclens For Decolonization -) 1 applic TP HS [facility] Last Admin: 01/24/19 21:11 Dose: 1 applic Clonazepam (Klonopin -) 1 mg PO TID [facility] Last Admin: 01/25/19 06:12 Dose: 1 mg Gabapentin (Neurontin -) 300 mg PO TID [facility] Last Admin: 01/25/19 06:13 Dose: 300 mg Heparin Sodium (Porcine) (Heparin -) 5,000 unit SQ BID [facility] Last Admin: 01/25/19 10:38 Dose: 5,000 unit Ibuprofen (Motrin -) 400 mg PO Q4H PRN PRN Reason: FEVER Last Admin: 01/25/19 02:05 Dose: 400 mg Lorazepam (Ativan -) 0.5 mg PO Q4H PRN PRN Reason: ANXIETY Last Admin: 01/25/19 10:48 Dose: 0.5 mg Melatonin (Melatonin) 5 mg PO HS PRN PRN Reason: INSOMNIA Last Admin: 01/24/19 21:13 Dose: 5 mg Methadone HCl 40 mg/ Methadone (HCl 30 mg) 70 mg PO DAILY@0600 [facility] Last Admin: 01/25/19 06:10 Dose: 70 mg Multivitamins/Minerals/Vitamin C (Tab-A-Vit -) 1 tab PO DAILY [facility] Last Admin: 01/25/19 10:38 Dose: 1 tab Mupirocin (Bactroban Ointment (For Decolonization) -) 1 applic NS BID [facility] Stop: 01/25/19 21:59 Last Admin: 01/24/19 21:11 Dose: 1 applic Phenobarbital (Phenobarbital -) 90 mg PO BID [facility] Last Admin: 01/25/19 10:37 Dose: 90 mg Phenytoin Sodium (Dilantin -) 300 mg PO DAILY [facility] Last Admin: 01/25/19 10:37 Dose: 300 mg Quetiapine Fumarate (Seroquel -) 400 mg PO DAILY [facility] Last Admin: 01/25/19 10:49 Dose: 400 mg ASSESSMENT AND PLAN: Seizures likely due to Drug withdrawal & Left Encephalomalacia Polysubstance abuse: Cocaine, heroin, marijuana, alcohol HTN Hepatitis C History of latent tuberculosis Asthma by history - continue antiepileptics - seizure precautions - PO as tolerated - aspiration precautinos - DVT prophylaxis - please discharge patient
[2019-01-25 11:54] VITALS: BMI 31.0
--- NOTE | 2019-01-25 12:07 | PN ---
Physical Exam: SUBJECTIVE: Patient seen and examined at bedside in the ICU. No acute events overnight. OBJECTIVE: Vital Signs Period Temp Pulse Resp BP Sys/Rouse Pulse Ox Last 24 Hr 98.3 F-98.7 F 72-81 16-18 105-119/66-76 GENERAL: The patient is awake, alert, in no acute distress. HEAD: Normal with no signs of trauma. EYES: PERRL, extraocular movements intact, sclera anicteric, conjunctiva clear. No ptosis. ENT: Ears normal, nares patent, oropharynx clear without exudates, moist mucous membranes. NECK: Trachea midline, full range of motion, supple. LUNGS: Breath sounds equal, clear to auscultation bilaterally, no wheezes, no crackles, no accessory muscle use. HEART: Regular rate and rhythm, S1, S2 without murmur, rub or gallop. ABDOMEN: Soft, nontender, nondistended. EXTREMITIES: 2+ pulses, warm, well-perfused, no edema. NEUROLOGICAL: Cranial nerves II through XII grossly intact. Normal speech, normal gait. SKIN: Warm, dry, normal turgor, no rashes or lesions noted Active Medications Generic Name Dose Route Start Last Admin Trade Name Freq PRN Reason Stop Dose Admin Aspirin 81 mg 01/23/19 10:00 01/25/19 10:38 Asa - PO 81 mg DAILY LEONELA Administration Bupropion HCl 100 mg 01/22/19 10:30 01/25/19 10:39 Wellbutrin - PO 100 mg BID LEONELA Administration Chlorhexidine Gluconate 1 applic 01/22/19 22:00 01/24/19 21:11 Hibiclens For Decolonization - TP 1 applic HS LEONELA Administration Clonazepam 1 mg 01/21/19 23:45 01/25/19 06:12 Klonopin - PO 1 mg TID LEONELA Administration Gabapentin 300 mg 01/22/19 22:00 01/25/19 06:13 Neurontin - PO 300 mg TID LEONELA Administration Heparin Sodium (Porcine) 5,000 unit 01/22/19 22:00 01/25/19 10:38 Heparin - SQ 5,000 unit BID LEONELA Administration Ibuprofen 400 mg 01/23/19 21:52 01/25/19 02:05 Motrin - PO 400 mg Q4H PRN Administration FEVER Lorazepam 0.5 mg 01/23/19 07:20 01/25/19 10:48 Ativan - PO 0.5 mg Q4H PRN Administration ANXIETY Melatonin 5 mg 01/21/19 23:33 01/24/19 21:13 Melatonin PO 5 mg HS PRN Administration INSOMNIA Methadone HCl 40 mg/ Methadone 70 mg 01/22/19 13:15 01/25/19 06:10 HCl 30 mg PO 70 mg DAILY@0600 LEONELA Administration Multivitamins/Minerals/Vitamin C 1 tab 01/22/19 10:00 01/25/19 10:38 Tab-A-Vit - PO 1 tab DAILY LEONELA Administration Mupirocin 1 applic 01/22/19 22:00 01/24/19 21:11 Bactroban Ointment (For Decolonization) - NS 01/25/19 21:59 1 applic BID LEONELA Administration Phenobarbital 90 mg 01/22/19 22:00 01/25/19 10:37 Phenobarbital - PO 90 mg BID LEONELA Administration Phenytoin Sodium 300 mg 01/23/19 10:00 01/25/19 10:37 Dilantin - PO 300 mg DAILY LEONELA Administration Quetiapine Fumarate 400 mg 01/23/19 10:00 01/25/19 10:49 Seroquel - PO 400 mg DAILY LEONELA Administration ASSESSMENT/PLAN: This is a 38 y/o M with PMH polysubstance abuse (Cocaine, heroine, marijuana, alcohol), HTN, Hepatitis C, latent tuberculosis, Seizure d/o, and asthma who presented initially to [facility] [place] from [facility] due to multiple seizures. #Neuro->Seizure disorder 2/2 Benzo withdrawal/Encephalomalacia -CTH (-) -sz precautions -ativan 0.5mg q4h PRN -1:1 observation -Neurology: Dr Park on board -s/p Fosphenytoin load 1000mg x1. c/w Dilantin 300mg daily, phenobarbital 90mg BID -klonopin 1mg TID cont'd as pt possibly withdrawing from benzos. longer detox. -neurology re-eval requested by Dr. Hernadez for clearance #psych -pt has full capacity to sign out AMA or be discharged, per Dr. Guardado #Polysubstance abuse -per [facility] nurse, pt on methadone 70 mg PO QD #F/E/N No Standing fluids Monitor Electrolytes regular diet #PPX Hep 5000 units sq TID #Dispo transfer to floor. awaiting bed social work consult for housing instability Visit type - Emergency Visit Emergency Visit: Yes ED Registration Date: 01/19/19 Care time: The patient presented to the Emergency Department on the above date and was hospitalized for further evaluation of their emergent condition. - New Patient This patient is new to me today: No - Critical Care Critical Care patient: Yes Total Critical Care Time (in minutes): 35 Critical Care Statement: The care of this patient involved high complexity decision making to prevent further life threatening deterioration of the patient 's condition and/or to evaluate & treat vital organ system(s) failure or risk of failure. ATTENDING PHYSICIAN STATEMENT I saw and evaluated the patient. I reviewed the resident's note and discussed the case with the resident. I agree with the resident's findings and plan as documented. SUBJECTIVE: OBJECTIVE: ASSESSMENT AND PLAN:
--- NOTE | 2019-01-25 15:58 | PN ---
Progress Note (short form) - Note Progress Note: HPI 01/20/19 : 38 year old male, with a significant PMH of heroin, EtOH, cocaine, and marijuana dependence (currently undergoing detox at [facility]), seizures, Hepatitis C, latent tuberculosis, and depression, who presents to the ED BIBA from [facility] for evaluation of multiple seizures today. As per [facility] nurse , patient had 2 unwitnessed seizures today. He was found on the floor. Patient is unsure if he hit his head. En route to the ED, patient seized. He was given valium prior to arrival. In ED, patient seized two more times, and was given Ativan following each episode. He admits to cocaine and marijuana use over the past week. Patient complains of a headache and tremors while in the ED, and notes he feels as if he is withdrawing. Loaded with phenobarbital yesterday in ER and being rx. with Ativan prn for several sz, reported generalized sz"described as shrugging" with LOC. No confusion followed after several of these events. Pt. reports sz. d/o since age 5, that he was drinking a 12 pack and a pint of hard liquor daily [employer]/PA[employer] admission to [facility]. Refusing to give further hx. only that he was taking Xanax/ Klonopin. 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: Seizure Psych: Yes: Addictions, Anxiety, Depression - Alcohol/Substance Use Hx Alcohol Use: Yes History of Substance Use: reports: Prescription, Tranquilizers - Smoking History Smoking history: Current every day smoker Have you smoked in the past 12 months: Yes Aproximately how many cigarettes per day: 20 - Social History Usual Living Arrangement: Alone ADL: Independent Occupation: unemployed Home Medications - Allergies Allergies/Adverse Reactions: Allergies Allergy/AdvReac Type Severity Reaction Status Date / Time promethazine HCl Allergy Unknown Swelling Verified 01/06/14 17:02 [From Phenergan] prochlorperazine edisylate Allergy Verified 01/06/14 17:02 [From Compazine] prochlorperazine maleate Allergy Verified 01/06/14 17:02 [From Compazine] trazodone Allergy Swelling Verified 01/06/14 17:02 - Home Medications Home Medications: Ambulatory Orders Bupropion HCl [Wellbutrin -] 100 mg PO BID 01/04/19 Gabapentin [Neurontin -] 300 mg PO Q8H 01/04/19 Phenobarbital 100 mg PO BID 01/04/19 Quetiapine Fumarate [Seroquel -] 400 mg PO DAILY MDD 200 mg 01/04/19 Aspirin 81 mg PO DAILY 01/19/19 Benztropine Mesylate [Cogentin -] 0.5 mg PO BID 01/19/19 Clonazepam [Klonopin] 1 mg PO TID 01/19/19 Gabapentin [Neurontin] 300 mg PO TID 01/19/19 Haloperidol [Haldol -] 5 mg PO DAILY 01/19/19 Methylphenidate HCl [Methylphenidate ER] 10 mg PO BID 01/19/19 Methadone [Dolophine -] 30 mg PO DAILY 01/20/19 Methadone [Dolophine -] 40 mg PO DAILY 01/20/19 Physical Exam-Neuro Vital Signs: Vital Signs Temperature 98.4 F 01/25/19 10:00 Pulse Rate 81 01/25/19 10:00 Respiratory Rate 16 01/25/19 10:00 Blood Pressure 119/71 01/25/19 10:00 O2 Sat by Pulse Oximetry (%) 96 01/21/19 18:20 Labs: CBCD WBC 5.2 K/mm3 (4.0-10.0) 01/19/19 13:30 RBC 4.88 M/mm3 (4.00-5.60) 01/19/19 13:30 Hgb 14.4 GM/dL (11.7-16.9) 01/19/19 13:30 Hct 42.8 % (35.4-49) 01/19/19 13:30 MCV 87.6 fl (80-96) 01/19/19 13:30 MCHC 33.7 g/dl (32.0-35.9) 01/19/19 13:30 RDW 14.7 % (11.9-15.9) 01/19/19 13:30 Plt Count 243 K/MM3 (134-434) 01/19/19 13:30 MPV 7.5 fl (7.5-11.1) 01/19/19 13:30 CMP Sodium 143 mmol/L (136-145) 01/19/19 13:30 Potassium 4.2 mmol/L (3.5-5.1) 01/19/19 13:30 Chloride 107 mmol/L (98-107) 01/19/19 13:30 Carbon Dioxide 29 mmol/L (21-32) 01/19/19 13:30 Anion Gap 7 MMOL/L (8-16) L 01/19/19 13:30 BUN 7.9 mg/dL (7-18) 01/19/19 13:30 Creatinine 0.5 mg/dL (0.55-1.3) L 01/19/19 13:30 Calcium 8.9 mg/dL (8.5-10.1) 01/19/19 13:30 Total Bilirubin 0.4 mg/dL (0.2-1) 01/19/19 13:30 AST 70 U/L (15-37) H 01/19/19 13:30 ALT 137 U/L (13-61) H 01/19/19 13:30 Alkaline Phosphatase 69 U/L (45-117) 01/19/19 13:30 Total Protein 6.9 g/dl (6.4-8.2) 01/19/19 13:30 Albumin 3.8 g/dl (3.4-5.0) 01/19/19 13:30 - Neuro Exam Level Of Consciousness: Yes: Alert, Oriented to Person, Oriented to Place, Oriented to Time Eyes: Yes: LIBBY Speech: Other (Loud) Mini Mental Exam: Follows 2 step commands, refuses rest of exam. Agitated Response to light touch: Normal Response to pain prick: Normal Motor Strength: 5/5: Left Arm, Right Arm, Left Leg, Right Leg Gait: Deferred Imaging - Results Cat Scan: Report Reviewed (Left post. temp/occipital encephalomalacia) Assessment/Plan Seizures- toxic /metabolic vs prior structural disaese ( left temporal encephalomalacia) vs NON -epileptical events in the setting of ETOH withdrawal and less likely opiate withdrawl. no new events neurologically stable and cleared cont dilantin and phenobarb , ativan protocol--can FU with outpt neurologist cont methadone DR KIM
[2019-01-25] MEDS ORDERED: LORazepam 2 MG/ML SDV VIAL ONE (17:38)
--- NOTE | 2019-01-25 18:46 | RAPID ---
<Roslyn Larsen - Last Filed: 01/25/19 18:42> Physical Examination Vital Signs: Vital Signs Temperature 98.4 F 01/25/19 10:00 Pulse Rate 78 01/25/19 16:00 Respiratory Rate 18 01/25/19 16:00 Blood Pressure 108/72 01/25/19 16:00 O2 Sat by Pulse Oximetry (%) 96 01/21/19 18:20 Labs: CBC, BMP 01/19/19 13:30 01/22/19 10:25 Rapid Response - Rapid Response Assessment: A rapid response was called at 5:36pm, the rapid team responded immediately. The patient was having what appeared to be a seizure. On physical exam, his O2 saturation was 97% however BP was unable to be obtained because of the patient' s jerking movements. The neuro exam was notable for the fact that the patient was protecting his face, multiple times, during arm drop test. He was also resisting forced eye opening, and when a light was shone in his eyes he became suddenly responsive to answer our questions, he then resumed his jerking. The patient was not found to be incontinent. A decision was made to hold ativan. The MAR was reviewed and the patient had received all of his anti-epileptics in addition to his methadone. Will endorse to night team. <Carlitos Montez - Last Filed: 01/29/19 13:14> Physical Examination Vital Signs: Labs: CBC, BMP 01/27/19 15:00 01/27/19 15:00 Critical Care Total Critical Care Time (in minutes): 25
--- NOTE | 2019-01-25 19:08 | PN ---
Progress Note, Physician History of Present Illness: stable and calm - Current Medication List Current Medications: Active Medications Aspirin (Asa -) 81 mg PO DAILY [facility] Bupropion HCl (Wellbutrin -) 100 mg PO BID [facility] Clonazepam (Klonopin -) 1 mg PO TID LEONELA Gabapentin (Neurontin -) 300 mg PO TID [facility] Heparin Sodium (Porcine) (Heparin -) 5,000 unit SQ BID LEONELA Ibuprofen (Motrin -) 400 mg PO Q4H PRN PRN Reason: FEVER Last Admin: 01/25/19 02:05 Dose: 400 mg Lorazepam (Ativan -) 0.5 mg PO Q4H PRN PRN Reason: ANXIETY Last Admin: 01/25/19 17:17 Dose: 0.5 mg Melatonin (Melatonin) 5 mg PO HS PRN PRN Reason: INSOMNIA Methadone HCl 40 mg/ Methadone (HCl 30 mg) 70 mg PO DAILY@0600 [facility] Multivitamins/Minerals/Vitamin C (Tab-A-Vit -) 1 tab PO DAILY [facility] Phenobarbital (Phenobarbital -) 90 mg PO BID [facility] Phenytoin Sodium (Dilantin -) 300 mg PO DAILY [facility] Quetiapine Fumarate (Seroquel -) 400 mg PO DAILY [facility] - Objective Vital Signs: Vital Signs Temperature 98.4 F 01/25/19 10:00 Pulse Rate 78 01/25/19 16:00 Respiratory Rate 18 01/25/19 16:00 Blood Pressure 108/72 01/25/19 16:00 O2 Sat by Pulse Oximetry (%) 96 01/21/19 18:20 Constitutional: Yes: Calm HENT: Yes: Atraumatic Neck: Yes: Supple Cardiovascular: Yes: Regular Rate and Rhythm Respiratory: Yes: CTA Bilaterally Gastrointestinal: Yes: Normal Bowel Sounds Extremities: Yes: WNL Edema: No Neurological: Yes: Alert Labs: CBC, BMP 01/19/19 13:30 01/22/19 10:25 INR, PTT INR 1.03 (0.83-1.09) 01/19/19 13:30 Problem List - Problems (1) Alcohol dependence Assessment/Plan: detox consult reviewed prn ativan for withdrawl Code(s): F10.20 - ALCOHOL DEPENDENCE, UNCOMPLICATED (2) Nicotine dependence Code(s): F17.200 - NICOTINE DEPENDENCE, UNSPECIFIED, UNCOMPLICATED (3) Opioid dependence Code(s): F11.20 - OPIOID DEPENDENCE, UNCOMPLICATED (4) Substance abuse Code(s): F19.10 - OTHER PSYCHOACTIVE SUBSTANCE ABUSE, UNCOMPLICATED (5) Substance-induced sleep disorder Code(s): F19.982 - OTH PSYCHOACTIVE SUBSTANCE USE, UNSP W SLEEP DISORDER (6) Seizure disorder Assessment/Plan: cleared to be dc by neuro Code(s): G40.909 - EPILEPSY, UNSP, NOT INTRACTABLE, WITHOUT STATUS EPILEPTICUS (7) Bipolar disorder Assessment/Plan: psych eval reviewed cleared to be dc on meds Code(s): F31.9 - BIPOLAR DISORDER, UNSPECIFIED Assessment/Plan PATIENT IS CLEARED TO BE DISCHARGED BY PSYCH AND NEURO
[2019-01-25] MEDS: ACETAMINOPHEN 325 MG TABLET (FP) PO PRN (20:29)
[2019-01-25] MEDS ORDERED: CHLORHEXIDINE GLUCONATE 4% CLEANSER FOR DECOLONIZATION TP SCH (22:00)
[2019-01-25] MEDS ORDERED: MUPIROCIN 2% TOPICAL OINTMENT FOR DECOLONIZATION NS SCH (22:00)
[2019-01-25] MEDS: MELATONIN 5 MG TABLETS PO PRN (22:18)
[2019-01-26] MEDS ORDERED: METHADONE HCL 40 MG DISPERSABLE TABLET ONE (05:48)
[2019-01-26] MEDS ORDERED: METHADONE HCL 10 MG TABLET ONE (05:49)
[2019-01-26] MEDS: METHADONE 40 MG, METHADONE 30 MG PO SCH (06:44)
[2019-01-26] MEDS: GABAPENTIN 300 MG CAPSULE (FP) PO SCH ×3 (06:47→21:06)
[2019-01-26] MEDS: clonazePAM 0.5 MG TABLET PO SCH ×3 (06:47→21:04)
[2019-01-26] MEDS ORDERED: PT OWN MED DRAWER 7, Y5N ONE (10:28)
[2019-01-26] MEDS: ACETAMINOPHEN 325 MG TABLET (FP) PO PRN ×2 (10:37→22:55)
[2019-01-26] MEDS: PHENYTOIN NA EXTENDED 100 MG CAPSULE (FP) PO SCH (10:37)
[2019-01-26] MEDS: MULTIVITAMINS (DAILY MVI) TABLET (FP) PO SCH (10:38)
[2019-01-26] MEDS: PHENobarbital 30 MG TABLET PO SCH ×2 (10:38→21:05)
[2019-01-26] MEDS: buPROPion HCL 100 MG TABLET PO SCH ×2 (10:38→21:05)
[2019-01-26] MEDS: LORazepam 0.5 MG TABLET PO PRN ×3 (10:38→21:05)
[2019-01-26] MEDS: ASPIRIN 81 MG CHEWABLE TABLETS PO SCH (10:38)
[2019-01-26] MEDS: HEPARIN NA (PORCINE) 5,000 UNITS/ML 1ML VIAL SQ SCH ×2 (10:39→21:03)
[2019-01-26] MEDS: QUEtiapine FUMARATE 200 MG TABLET PO SCH (10:40)
--- NOTE | 2019-01-26 18:31 | PN ---
Progress Note, Physician - Current Medication List Current Medications: Active Medications Acetaminophen (Tylenol -) 650 mg PO Q6H PRN PRN Reason: NEED PAIN SCALE Last Admin: 01/26/19 10:37 Dose: 650 mg Aspirin (Asa -) 81 mg PO DAILY [facility] Last Admin: 01/26/19 10:38 Dose: 81 mg Bupropion HCl (Wellbutrin -) 100 mg PO BID [facility] Last Admin: 01/26/19 10:38 Dose: 100 mg Clonazepam (Klonopin -) 1 mg PO TID [facility] Last Admin: 01/26/19 13:06 Dose: 1 mg Gabapentin (Neurontin -) 300 mg PO TID [facility] Last Admin: 01/26/19 13:06 Dose: 300 mg Heparin Sodium (Porcine) (Heparin -) 5,000 unit SQ BID [facility] Last Admin: 01/26/19 10:39 Dose: 5,000 unit Ibuprofen (Motrin -) 400 mg PO Q4H PRN PRN Reason: FEVER Last Admin: 01/25/19 02:05 Dose: 400 mg Lorazepam (Ativan -) 0.5 mg PO Q4H PRN PRN Reason: ANXIETY Last Admin: 01/26/19 14:13 Dose: 0.5 mg Melatonin (Melatonin) 5 mg PO HS PRN PRN Reason: INSOMNIA Last Admin: 01/25/19 22:18 Dose: 5 mg Methadone HCl 40 mg/ Methadone (HCl 30 mg) 70 mg PO DAILY@0600 [facility] Last Admin: 01/26/19 06:44 Dose: 70 mg Multivitamins/Minerals/Vitamin C (Tab-A-Vit -) 1 tab PO DAILY [facility] Last Admin: 01/26/19 10:38 Dose: 1 tab Phenobarbital (Phenobarbital -) 90 mg PO BID [facility] Last Admin: 01/26/19 10:38 Dose: 90 mg Phenytoin Sodium (Dilantin -) 300 mg PO DAILY [facility] Last Admin: 01/26/19 10:37 Dose: 300 mg Quetiapine Fumarate (Seroquel -) 400 mg PO DAILY [facility] Last Admin: 01/26/19 10:40 Dose: 400 mg - Objective Vital Signs: Vital Signs Temperature 98.9 F 01/26/19 15:07 Pulse Rate 76 01/26/19 15:07 Respiratory Rate 18 01/26/19 15:07 Blood Pressure 116/69 01/26/19 15:07 O2 Sat by Pulse Oximetry (%) 96 01/21/19 18:20 Constitutional: Yes: Calm HENT: Yes: Atraumatic Neck: Yes: Supple Cardiovascular: Yes: Regular Rate and Rhythm Respiratory: Yes: CTA Bilaterally Gastrointestinal: Yes: Normal Bowel Sounds Extremities: Yes: WNL Neurological: Yes: Alert, Oriented Labs: CBC, BMP 01/19/19 13:30 01/22/19 10:25 INR, PTT INR 1.03 (0.83-1.09) 01/19/19 13:30 Problem List - Problems (1) Alcohol dependence Assessment/Plan: detox consult reviewed prn ativan for withdrawl dr acuña said patient completed detox Code(s): F10.20 - ALCOHOL DEPENDENCE, UNCOMPLICATED (2) Nicotine dependence Code(s): F17.200 - NICOTINE DEPENDENCE, UNSPECIFIED, UNCOMPLICATED (3) Opioid dependence Code(s): F11.20 - OPIOID DEPENDENCE, UNCOMPLICATED (4) Substance abuse Code(s): F19.10 - OTHER PSYCHOACTIVE SUBSTANCE ABUSE, UNCOMPLICATED (5) Substance-induced sleep disorder Code(s): F19.982 - OTH PSYCHOACTIVE SUBSTANCE USE, UNSP W SLEEP DISORDER (6) Seizure disorder Assessment/Plan: pt wants to go to in patient psych d/w psych PA in detail he is covering for dr albright he need to fill out form wit patient and initiate transfer on seizure meds Code(s): G40.909 - EPILEPSY, UNSP, NOT INTRACTABLE, WITHOUT STATUS EPILEPTICUS (7) Bipolar disorder Assessment/Plan: psych eval reviewed cleared to be dc on meds Code(s): F31.9 - BIPOLAR DISORDER, UNSPECIFIED
--- NOTE | 2019-01-26 18:47 | PN ---
Mental Health Exam - Mental Status Exam Alert and Oriented to: Time, Place, Person Cognitive Function: Grossly Intact Patient Appearance: Unkempt Mood: Angry, Fearful, Hostile, Expansive Affect: Labile Patient Behavior: Aggressive, Restless, Belligerent, Impulsive Speech Pattern: Clear, Excessive, Tangential Voice Loudness: Moderately Loud Thought Process: Circumstantial, Tangential Thought Disorder: Grandiose Hallucinations: None Suicidal Ideation: None Homicidal Ideation: None Insight/Judgement: Impaired Sleep: Fair Appetite: Fair Muscle strength/Tone: Normal Gait/Station: Deferred (client last seen by dr albright on 01/21/19. Referred today for beligerence, threatning staff on unit, threatned to fill self if discharged today by slashing his wrists. Spake with co in attendance, ROSANNE Aguilar for history also.DX Bipolar disorder in manic phase,) Additional Comments: admit to inpatient psychiatry. comntinue current meds. made 2 PC forms, informed rosanne Aguilar
[2019-01-26] MEDS: MELATONIN 5 MG TABLETS PO PRN (21:06)
[2019-01-27] MEDS ORDERED: METHADONE HCL 40 MG DISPERSABLE TABLET ONE (07:00)
[2019-01-27] MEDS ORDERED: METHADONE HCL 10 MG TABLET ONE (07:00)
[2019-01-27] MEDS: LORazepam 0.5 MG TABLET PO PRN ×3 (07:02→19:37)
[2019-01-27] MEDS: clonazePAM 0.5 MG TABLET PO SCH ×3 (07:02→21:20)
[2019-01-27] MEDS: GABAPENTIN 300 MG CAPSULE (FP) PO SCH ×3 (07:02→21:20)
[2019-01-27] MEDS: METHADONE 40 MG, METHADONE 30 MG PO SCH (07:03)
[2019-01-27] MEDS ORDERED: PT OWN MED DRAWER 7, Y5N ONE (09:27)
[2019-01-27] MEDS: ASPIRIN 81 MG CHEWABLE TABLETS PO SCH (09:31)
[2019-01-27] MEDS: QUEtiapine FUMARATE 200 MG TABLET PO SCH (09:31)
[2019-01-27] MEDS: HEPARIN NA (PORCINE) 5,000 UNITS/ML 1ML VIAL SQ SCH ×2 (09:31→21:20)
[2019-01-27] MEDS: PHENYTOIN NA EXTENDED 100 MG CAPSULE (FP) PO SCH (09:31)
[2019-01-27] MEDS: MULTIVITAMINS (DAILY MVI) TABLET (FP) PO SCH (09:31)
[2019-01-27] MEDS: buPROPion HCL 100 MG TABLET PO SCH ×2 (09:31→21:20)
[2019-01-27] MEDS: PHENobarbital 30 MG TABLET PO SCH ×2 (09:31→21:20)
[2019-01-27 15:46] LABS: HEMATOCRIT 39.6 % (35.4-49); HEMOGLOBIN 13.6 GM/dL (11.7-16.9); MCH 30.1 pg (25.7-33.7); MCHC 34.4 g/dl (32.0-35.9); MEAN CELL VOLUME 87.6 fl (80-96); MEAN PLT VOLUME 7.3 fl (7.5-11.1); PLATELET COUNT 274 K/MM3 (134-434); RBC 4.52 M/mm3 (4.00-5.60); RDW 14.5 % (11.9-15.9); WHITE BLOOD COUNT 3.7 K/mm3 (4.0-10.0)
[2019-01-27 16:21] LABS: ALBUMIN 3.6 g/dl (3.4-5.0); BILIRUBIN,TOTAL 0.2 mg/dL (0.2-1); BLOOD UREA NITROGEN 10.8 mg/dL (7-18); CALCIUM 8.8 mg/dL (8.5-10.1); CREATININE 0.7 mg/dL (0.55-1.3); POTASSIUM 4.2 mmol/L (3.5-5.1); TOT PROT 6.6 g/dl (6.4-8.2)
--- NOTE | 2019-01-27 16:56 | PN ---
Progress Note, Physician - Current Medication List Current Medications: Active Medications Acetaminophen (Tylenol -) 650 mg PO Q6H PRN PRN Reason: NEED PAIN SCALE Last Admin: 01/26/19 22:55 Dose: 650 mg Aspirin (Asa -) 81 mg PO DAILY [facility] Last Admin: 01/27/19 09:31 Dose: 81 mg Bupropion HCl (Wellbutrin -) 100 mg PO BID [facility] Last Admin: 01/27/19 09:31 Dose: 100 mg Clonazepam (Klonopin -) 1 mg PO TID [facility] Last Admin: 01/27/19 13:02 Dose: 1 mg Gabapentin (Neurontin -) 300 mg PO TID [facility] Last Admin: 01/27/19 13:01 Dose: 300 mg Heparin Sodium (Porcine) (Heparin -) 5,000 unit SQ BID [facility] Last Admin: 01/27/19 09:31 Dose: 5,000 unit Ibuprofen (Motrin -) 400 mg PO Q4H PRN PRN Reason: FEVER Last Admin: 01/25/19 02:05 Dose: 400 mg Lorazepam (Ativan -) 0.5 mg PO Q4H PRN PRN Reason: ANXIETY Last Admin: 01/27/19 13:05 Dose: 0.5 mg Melatonin (Melatonin) 5 mg PO HS PRN PRN Reason: INSOMNIA Last Admin: 01/26/19 21:06 Dose: 5 mg Methadone HCl 40 mg/ Methadone (HCl 30 mg) 70 mg PO DAILY@0600 [facility] Last Admin: 01/27/19 07:03 Dose: 70 mg Multivitamins/Minerals/Vitamin C (Tab-A-Vit -) 1 tab PO DAILY [facility] Last Admin: 01/27/19 09:31 Dose: 1 tab Phenobarbital (Phenobarbital -) 90 mg PO BID [facility] Last Admin: 01/27/19 09:31 Dose: 90 mg Phenytoin Sodium (Dilantin -) 300 mg PO DAILY [facility] Last Admin: 01/27/19 09:31 Dose: 300 mg Quetiapine Fumarate (Seroquel -) 400 mg PO DAILY [facility] Last Admin: 01/27/19 09:31 Dose: 400 mg - Objective Vital Signs: Vital Signs Temperature 98.2 F 01/27/19 14:05 Pulse Rate 95 H 01/27/19 14:05 Respiratory Rate 16 01/27/19 14:05 Blood Pressure 114/71 01/27/19 14:05 O2 Sat by Pulse Oximetry (%) 92 L 01/27/19 09:00 Constitutional: Yes: Calm HENT: Yes: Atraumatic Neck: Yes: Supple Cardiovascular: Yes: Regular Rate and Rhythm Respiratory: Yes: CTA Bilaterally Gastrointestinal: Yes: Normal Bowel Sounds Extremities: Yes: WNL Neurological: Yes: Alert Labs: CBC, BMP 01/27/19 15:00 01/27/19 15:00 INR, PTT INR 1.03 (0.83-1.09) 01/19/19 13:30 Problem List - Problems (1) Alcohol dependence Assessment/Plan: detox consult reviewed prn ativan for withdrawl dr acuña said patient completed detox Code(s): F10.20 - ALCOHOL DEPENDENCE, UNCOMPLICATED (2) Nicotine dependence Code(s): F17.200 - NICOTINE DEPENDENCE, UNSPECIFIED, UNCOMPLICATED (3) Opioid dependence Code(s): F11.20 - OPIOID DEPENDENCE, UNCOMPLICATED (4) Substance abuse Code(s): F19.10 - OTHER PSYCHOACTIVE SUBSTANCE ABUSE, UNCOMPLICATED (5) Substance-induced sleep disorder Code(s): F19.982 - OTH PSYCHOACTIVE SUBSTANCE USE, UNSP W SLEEP DISORDER (6) Seizure disorder Assessment/Plan: pt wants to go to in patient psych d/w psych PA in detail he is covering for dr albright he need to fill out form with patient and initiate transfer on seizure meds Code(s): G40.909 - EPILEPSY, UNSP, NOT INTRACTABLE, WITHOUT STATUS EPILEPTICUS (7) Bipolar disorder Assessment/Plan: psych eval reviewed cleared to be dc on meds Code(s): F31.9 - BIPOLAR DISORDER, UNSPECIFIED Assessment/Plan no acute medical issues at this point besides what is under problem list vital signs stable
[2019-01-27] MEDS: ACETAMINOPHEN 325 MG TABLET (FP) PO PRN (18:15)
[2019-01-27] MEDS: MELATONIN 5 MG TABLETS PO PRN (21:20)
--- NOTE | 2019-01-27 21:22 | EKG ---
Test Reason : Blood Pressure : / mmHG Vent. Rate : 072 BPM Atrial Rate : 072 BPM P-R Int : 172 ms QRS Dur : 098 ms QT Int : 382 ms P-R-T Axes : 020 028 029 degrees QTc Int : 418 ms NORMAL SINUS RHYTHM NORMAL ECG WHEN COMPARED WITH ECG OF 19-JAN-2019 15:19, VENT. RATE HAS DECREASED BY 35 BPM Confirmed by HORTENCIA BARILLAS MD ([id number]) on 01/27/2019 9:21:43 PM Referred By: SUZY SHEIKH Confirmed By:HORTENCIA BARILLAS MD
[2019-01-27] MEDS ORDERED: hydrOXYzine PAMOATE 25 MG CAPSULE (FP) PO ONE (21:53)
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
[2019-01-28] MEDS: LORazepam 0.5 MG TABLET PO PRN ×5 (00:02→20:17)
[2019-01-28] MEDS ORDERED: METHADONE HCL 40 MG DISPERSABLE TABLET ONE (05:58)
[2019-01-28] MEDS ORDERED: METHADONE HCL 10 MG TABLET ONE (05:58)
[2019-01-28] MEDS: METHADONE 40 MG, METHADONE 30 MG PO SCH (06:25)
[2019-01-28] MEDS: GABAPENTIN 300 MG CAPSULE (FP) PO SCH ×3 (06:25→21:12)
[2019-01-28] MEDS: clonazePAM 0.5 MG TABLET PO SCH ×3 (06:25→21:11)
[2019-01-28] MEDS ORDERED: PT OWN MED DRAWER 7, Y5N ONE (08:52)
[2019-01-28] MEDS: ASPIRIN 81 MG CHEWABLE TABLETS PO SCH (09:00)
[2019-01-28] MEDS: HEPARIN NA (PORCINE) 5,000 UNITS/ML 1ML VIAL SQ SCH ×2 (09:00→21:12)
[2019-01-28] MEDS: MULTIVITAMINS (DAILY MVI) TABLET (FP) PO SCH (09:00)
[2019-01-28] MEDS: PHENYTOIN NA EXTENDED 100 MG CAPSULE (FP) PO SCH (09:01)
[2019-01-28] MEDS: QUEtiapine FUMARATE 200 MG TABLET PO SCH (09:01)
[2019-01-28] MEDS: buPROPion HCL 100 MG TABLET PO SCH ×2 (09:01→21:12)
[2019-01-28] MEDS: PHENobarbital 30 MG TABLET PO SCH ×2 (09:01→21:11)
--- NOTE | 2019-01-28 09:42 | DS ---
Physical Examination Vital Signs: Vital Signs Temperature 97.8 F 01/28/19 06:00 Pulse Rate 65 01/28/19 06:00 Respiratory Rate 18 01/28/19 06:00 Blood Pressure 110/69 01/28/19 06:00 O2 Sat by Pulse Oximetry (%) 93 L 01/27/19 21:00 Constitutional: Yes: No Distress HENT: Yes: Atraumatic Cardiovascular: Yes: Regular Rate and Rhythm Respiratory: Yes: CTA Bilaterally Gastrointestinal: Yes: Normal Bowel Sounds Neurological: Yes: Alert Labs: CBC, BMP 01/27/19 15:00 01/27/19 15:00 Discharge Summary Problems reviewed: Yes Reason For Visit: SEIZURE DISORDER Current Active Problems Substance abuse (Acute) Seizure disorder (Chronic) Condition: Fair - Instructions Diet, Activity, Other Instructions: fu with neurologist as out patient Referrals: Dany Manley DO [Staff Physician] - - Home Medications Comprehensive Discharge Medication List: Ambulatory Orders Bupropion HCl [Wellbutrin -] 100 mg PO BID 01/04/19 Gabapentin [Neurontin -] 300 mg PO Q8H 01/04/19 Phenobarbital 100 mg PO BID 01/04/19 Quetiapine Fumarate [Seroquel -] 400 mg PO DAILY [facility] 200 mg 01/04/19 Aspirin 81 mg PO DAILY 01/19/19 Benztropine Mesylate [Cogentin -] 0.5 mg PO BID 01/19/19 Clonazepam [Klonopin] 1 mg PO TID 01/19/19 Gabapentin [Neurontin] 300 mg PO TID 01/19/19 Haloperidol [Haldol -] 5 mg PO DAILY 01/19/19 Methylphenidate HCl [Methylphenidate ER] 10 mg PO BID 01/19/19 Methadone [Dolophine -] 30 mg PO DAILY 01/20/19 Methadone [Dolophine -] 40 mg PO DAILY 01/20/19 transfer to inpatient psych
--- NOTE | 2019-01-28 17:47 | PN ---
Progress Note, Physician History of Present Illness: awaiting transfer - Current Medication List Current Medications: Active Medications Acetaminophen (Tylenol -) 650 mg PO Q6H PRN PRN Reason: NEED PAIN SCALE Last Admin: 01/27/19 18:15 Dose: 650 mg Aspirin (Asa -) 81 mg PO DAILY [facility] Last Admin: 01/28/19 09:00 Dose: 81 mg Bupropion HCl (Wellbutrin -) 100 mg PO BID [facility] Last Admin: 01/28/19 09:01 Dose: 100 mg Clonazepam (Klonopin -) 1 mg PO TID [facility] Last Admin: 01/28/19 13:05 Dose: 1 mg Gabapentin (Neurontin -) 300 mg PO TID [facility] Last Admin: 01/28/19 13:05 Dose: 300 mg Heparin Sodium (Porcine) (Heparin -) 5,000 unit SQ BID [facility] Last Admin: 01/28/19 09:00 Dose: 5,000 unit Ibuprofen (Motrin -) 400 mg PO Q4H PRN PRN Reason: FEVER Last Admin: 01/25/19 02:05 Dose: 400 mg Lorazepam (Ativan -) 0.5 mg PO Q4H PRN PRN Reason: ANXIETY Last Admin: 01/28/19 16:02 Dose: 0.5 mg Melatonin (Melatonin) 5 mg PO HS PRN PRN Reason: INSOMNIA Last Admin: 01/27/19 21:20 Dose: 5 mg Methadone HCl 40 mg/ Methadone (HCl 30 mg) 70 mg PO DAILY@0600 [facility] Last Admin: 01/28/19 06:25 Dose: 70 mg Multivitamins/Minerals/Vitamin C (Tab-A-Vit -) 1 tab PO DAILY [facility] Last Admin: 01/28/19 09:00 Dose: 1 tab Phenobarbital (Phenobarbital -) 90 mg PO BID [facility] Last Admin: 01/28/19 09:01 Dose: 90 mg Phenytoin Sodium (Dilantin -) 300 mg PO DAILY [facility] Last Admin: 01/28/19 09:01 Dose: 300 mg Quetiapine Fumarate (Seroquel -) 400 mg PO DAILY [facility] Last Admin: 01/28/19 09:01 Dose: 400 mg - Objective Vital Signs: Vital Signs Temperature 98.3 F 01/28/19 16:07 Pulse Rate 72 01/28/19 16:07 Respiratory Rate 18 01/28/19 16:07 Blood Pressure 124/72 01/28/19 16:07 O2 Sat by Pulse Oximetry (%) 95 01/28/19 09:00 Constitutional: Yes: No Distress HENT: Yes: Atraumatic Neck: Yes: Supple Cardiovascular: Yes: Regular Rate and Rhythm Respiratory: Yes: CTA Bilaterally Gastrointestinal: Yes: Normal Bowel Sounds Extremities: Yes: WNL Edema: No Neurological: Yes: Alert Labs: CBC, BMP 01/27/19 15:00 01/27/19 15:00 INR, PTT INR 1.03 (0.83-1.09) 01/19/19 13:30 Problem List - Problems (1) Alcohol dependence Assessment/Plan: detox consult reviewed prn ativan for withdrawl dr acuña said patient completed detox Code(s): F10.20 - ALCOHOL DEPENDENCE, UNCOMPLICATED (2) Nicotine dependence Code(s): F17.200 - NICOTINE DEPENDENCE, UNSPECIFIED, UNCOMPLICATED (3) Opioid dependence Code(s): F11.20 - OPIOID DEPENDENCE, UNCOMPLICATED (4) Substance abuse Code(s): F19.10 - OTHER PSYCHOACTIVE SUBSTANCE ABUSE, UNCOMPLICATED (5) Substance-induced sleep disorder Code(s): F19.982 - OTH PSYCHOACTIVE SUBSTANCE USE, UNSP W SLEEP DISORDER (6) Seizure disorder Assessment/Plan: pt wants to go to in patient psych d/w psych PA in detail he is covering for dr albright he need to fill out form with patient and initiate transfer on seizure meds Code(s): G40.909 - EPILEPSY, UNSP, NOT INTRACTABLE, WITHOUT STATUS EPILEPTICUS (7) Bipolar disorder Assessment/Plan: psych eval reviewed cleared to be dc on meds Code(s): F31.9 - BIPOLAR DISORDER, UNSPECIFIED
[2019-01-28] MEDS: ACETAMINOPHEN 325 MG TABLET (FP) PO PRN (20:19)
[2019-01-28] MEDS: MELATONIN 5 MG TABLETS PO PRN (21:12)
[2019-01-28] MEDS ORDERED: MAG HYDROX/AL HYDROX/SIMETH 30 ML UNIT-DOSE CUP PO ONE (22:28)
[2019-01-29] MEDS: LORazepam 0.5 MG TABLET PO PRN ×5 (00:26→21:36)
[2019-01-29] MEDS ORDERED: METHADONE HCL 40 MG DISPERSABLE TABLET ONE (06:05)
[2019-01-29] MEDS ORDERED: METHADONE HCL 10 MG TABLET ONE (06:06)
[2019-01-29] MEDS: METHADONE 40 MG, METHADONE 30 MG PO SCH (06:13)
[2019-01-29] MEDS: GABAPENTIN 300 MG CAPSULE (FP) PO SCH ×3 (06:14→21:34)
[2019-01-29] MEDS: clonazePAM 0.5 MG TABLET PO SCH ×3 (06:14→21:34)
[2019-01-29] MEDS ORDERED: PT OWN MED DRAWER 7, Y5N ONE (08:50)
[2019-01-29] MEDS: ACETAMINOPHEN 325 MG TABLET (FP) PO PRN ×2 (09:00→21:35)
[2019-01-29] MEDS: PHENobarbital 30 MG TABLET PO SCH ×2 (09:00→21:34)
[2019-01-29] MEDS: MULTIVITAMINS (DAILY MVI) TABLET (FP) PO SCH (09:01)
[2019-01-29] MEDS: buPROPion HCL 100 MG TABLET PO SCH ×2 (09:01→21:35)
[2019-01-29] MEDS: HEPARIN NA (PORCINE) 5,000 UNITS/ML 1ML VIAL SQ SCH ×2 (09:01→21:35)
[2019-01-29] MEDS: ASPIRIN 81 MG CHEWABLE TABLETS PO SCH (09:01)
[2019-01-29] MEDS: PHENYTOIN NA EXTENDED 100 MG CAPSULE (FP) PO SCH (09:01)
[2019-01-29] MEDS: QUEtiapine FUMARATE 200 MG TABLET PO SCH (09:02)
[2019-01-29] MEDS: IBUPROFEN 400 MG TABLET (FP) PO PRN (15:32)
--- NOTE | 2019-01-29 18:43 | PN ---
Progress Note, Physician - Current Medication List Current Medications: Active Medications Acetaminophen (Tylenol -) 650 mg PO Q6H PRN PRN Reason: NEED PAIN SCALE Last Admin: 01/29/19 09:00 Dose: 650 mg Aspirin (Asa -) 81 mg PO DAILY [facility] Last Admin: 01/29/19 09:01 Dose: 81 mg Bupropion HCl (Wellbutrin -) 100 mg PO BID [facility] Last Admin: 01/29/19 09:01 Dose: 100 mg Clonazepam (Klonopin -) 1 mg PO TID [facility] Last Admin: 01/29/19 13:04 Dose: 1 mg Gabapentin (Neurontin -) 300 mg PO TID [facility] Last Admin: 01/29/19 13:04 Dose: 300 mg Heparin Sodium (Porcine) (Heparin -) 5,000 unit SQ BID [facility] Last Admin: 01/29/19 09:01 Dose: 5,000 unit Ibuprofen (Motrin -) 400 mg PO Q4H PRN PRN Reason: FEVER Last Admin: 01/29/19 15:32 Dose: 400 mg Lorazepam (Ativan -) 0.5 mg PO Q4H PRN PRN Reason: ANXIETY Last Admin: 01/29/19 17:38 Dose: 0.5 mg Melatonin (Melatonin) 5 mg PO HS PRN PRN Reason: INSOMNIA Last Admin: 01/28/19 21:12 Dose: 5 mg Methadone HCl 40 mg/ Methadone (HCl 30 mg) 70 mg PO DAILY@0600 [facility] Last Admin: 01/29/19 06:13 Dose: 70 mg Multivitamins/Minerals/Vitamin C (Tab-A-Vit -) 1 tab PO DAILY [facility] Last Admin: 01/29/19 09:01 Dose: 1 tab Phenobarbital (Phenobarbital -) 90 mg PO BID [facility] Last Admin: 01/29/19 09:00 Dose: 90 mg Phenytoin Sodium (Dilantin -) 300 mg PO DAILY [facility] Last Admin: 01/29/19 09:01 Dose: 300 mg Quetiapine Fumarate (Seroquel -) 400 mg PO DAILY [facility] Last Admin: 01/29/19 09:02 Dose: 400 mg - Objective Vital Signs: Vital Signs Temperature 97.9 F 01/29/19 10:00 Pulse Rate 69 01/29/19 10:00 Respiratory Rate 18 01/29/19 10:00 Blood Pressure 136/63 01/29/19 10:00 O2 Sat by Pulse Oximetry (%) 95 01/29/19 09:00 Constitutional: Yes: No Distress HENT: Yes: Atraumatic Neck: Yes: Supple Cardiovascular: Yes: Regular Rate and Rhythm Respiratory: Yes: CTA Bilaterally Gastrointestinal: Yes: Normal Bowel Sounds Extremities: Yes: WNL Neurological: Yes: Alert, Oriented Labs: CBC, BMP 01/27/19 15:00 01/27/19 15:00 INR, PTT INR 1.03 (0.83-1.09) 01/19/19 13:30 Problem List - Problems (1) Alcohol dependence Assessment/Plan: detox consult reviewed prn ativan for withdrawl dr acuña said patient completed detox Code(s): F10.20 - ALCOHOL DEPENDENCE, UNCOMPLICATED (2) Nicotine dependence Code(s): F17.200 - NICOTINE DEPENDENCE, UNSPECIFIED, UNCOMPLICATED (3) Opioid dependence Code(s): F11.20 - OPIOID DEPENDENCE, UNCOMPLICATED (4) Substance abuse Code(s): F19.10 - OTHER PSYCHOACTIVE SUBSTANCE ABUSE, UNCOMPLICATED (5) Substance-induced sleep disorder Code(s): F19.982 - OTH PSYCHOACTIVE SUBSTANCE USE, UNSP W SLEEP DISORDER (6) Seizure disorder Assessment/Plan: pt wants to go to in patient psych d/w psych PA in detail he is covering for dr albright he need to fill out form with patient and initiate transfer on seizure meds Code(s): G40.909 - EPILEPSY, UNSP, NOT INTRACTABLE, WITHOUT STATUS EPILEPTICUS (7) Bipolar disorder Assessment/Plan: psych eval reviewed cleared to be dc on meds Code(s): F31.9 - BIPOLAR DISORDER, UNSPECIFIED
[2019-01-29] MEDS: MELATONIN 5 MG TABLETS PO PRN (21:35)
[2019-01-29] MEDS ORDERED: BISACODYL 5 MG TABLET.DR (FP) PO ONE (22:47)
[2019-01-30] MEDS ORDERED: METHADONE HCL 40 MG DISPERSABLE TABLET ONE (05:11)
[2019-01-30] MEDS ORDERED: METHADONE HCL 10 MG TABLET ONE (05:12)
[2019-01-30] MEDS: LORazepam 0.5 MG TABLET PO PRN ×4 (05:18→21:12)
[2019-01-30] MEDS: GABAPENTIN 300 MG CAPSULE (FP) PO SCH ×3 (05:18→21:12)
[2019-01-30] MEDS: METHADONE 40 MG, METHADONE 30 MG PO SCH (05:18)
[2019-01-30] MEDS: clonazePAM 0.5 MG TABLET PO SCH ×3 (05:19→21:11)
[2019-01-30] MEDS: ACETAMINOPHEN 325 MG TABLET (FP) PO PRN ×2 (06:33→21:17)
[2019-01-30] MEDS ORDERED: PT OWN MED DRAWER 7, Y5N ONE (09:32)
[2019-01-30] MEDS: PHENYTOIN NA EXTENDED 100 MG CAPSULE (FP) PO SCH (09:34)
[2019-01-30] MEDS: buPROPion HCL 100 MG TABLET PO SCH ×2 (09:35→21:12)
[2019-01-30] MEDS: HEPARIN NA (PORCINE) 5,000 UNITS/ML 1ML VIAL SQ SCH ×2 (09:35→21:13)
[2019-01-30] MEDS: ASPIRIN 81 MG CHEWABLE TABLETS PO SCH (09:35)
[2019-01-30] MEDS: MULTIVITAMINS (DAILY MVI) TABLET (FP) PO SCH (09:35)
[2019-01-30] MEDS: PHENobarbital 30 MG TABLET PO SCH ×2 (09:35→21:12)
[2019-01-30] MEDS: QUEtiapine FUMARATE 200 MG TABLET PO SCH (09:35)
[2019-01-30] MEDS: IBUPROFEN 400 MG TABLET (FP) PO PRN ×2 (09:40→16:20)
[2019-01-30] MEDS ORDERED: PANTOPRAZOLE 40 MG TABLET (FP) PO ONE (18:00)
[2019-01-30] MEDS: MELATONIN 5 MG TABLETS PO PRN (21:11)
--- NOTE | 2019-01-30 22:58 | PN ---
Progress Note, Physician History of Present Illness: Pt asking for pain meds(oxycontin) but he is on methadone - Current Medication List Current Medications: Active Medications Acetaminophen (Tylenol -) 650 mg PO Q6H PRN PRN Reason: NEED PAIN SCALE Last Admin: 01/30/19 21:17 Dose: 650 mg Aspirin (Asa -) 81 mg PO DAILY [facility] Last Admin: 01/30/19 09:35 Dose: 81 mg Bupropion HCl (Wellbutrin -) 100 mg PO BID [facility] Last Admin: 01/30/19 21:12 Dose: 100 mg Clonazepam (Klonopin -) 1 mg PO TID [facility] Last Admin: 01/30/19 21:11 Dose: 1 mg Gabapentin (Neurontin -) 300 mg PO TID [facility] Last Admin: 01/30/19 21:12 Dose: 300 mg Heparin Sodium (Porcine) (Heparin -) 5,000 unit SQ BID [facility] Last Admin: 01/30/19 21:13 Dose: 5,000 unit Ibuprofen (Motrin -) 400 mg PO Q4H PRN PRN Reason: FEVER Last Admin: 01/30/19 16:20 Dose: 400 mg Lorazepam (Ativan -) 0.5 mg PO Q4H PRN PRN Reason: ANXIETY Last Admin: 01/30/19 21:12 Dose: 0.5 mg Melatonin (Melatonin) 5 mg PO HS PRN PRN Reason: INSOMNIA Last Admin: 01/30/19 21:11 Dose: 5 mg Methadone HCl 40 mg/ Methadone (HCl 30 mg) 70 mg PO DAILY@0600 [facility] Last Admin: 01/30/19 05:18 Dose: 70 mg Multivitamins/Minerals/Vitamin C (Tab-A-Vit -) 1 tab PO DAILY [facility] Last Admin: 01/30/19 09:35 Dose: 1 tab Phenobarbital (Phenobarbital -) 90 mg PO BID [facility] Last Admin: 01/30/19 21:12 Dose: 90 mg Phenytoin Sodium (Dilantin -) 300 mg PO DAILY [facility] Last Admin: 01/30/19 09:34 Dose: 300 mg Quetiapine Fumarate (Seroquel -) 400 mg PO DAILY [facility] Last Admin: 01/30/19 09:35 Dose: 400 mg - Objective Vital Signs: Vital Signs Temperature 99.1 F 01/30/19 18:00 Pulse Rate 64 01/30/19 18:00 Respiratory Rate 20 01/30/19 18:00 Blood Pressure 119/66 01/30/19 18:00 O2 Sat by Pulse Oximetry (%) 94 L 01/30/19 08:55 Neck: Yes: WNL, Supple Cardiovascular: Yes: WNL, Regular Rate and Rhythm Respiratory: Yes: WNL, Regular, CTA Bilaterally Gastrointestinal: Yes: WNL, Normal Bowel Sounds, Soft Labs: CBC, BMP 01/27/19 15:00 01/27/19 15:00 INR, PTT INR 1.03 (0.83-1.09) 01/19/19 13:30 Problem List - Problems (1) Substance abuse Assessment/Plan: Await psych recommendations for placement Cont methadone Code(s): F19.10 - OTHER PSYCHOACTIVE SUBSTANCE ABUSE, UNCOMPLICATED (2) Seizure disorder Assessment/Plan: Cont phenytoin Code(s): G40.909 - EPILEPSY, UNSP, NOT INTRACTABLE, WITHOUT STATUS EPILEPTICUS (3) Alcohol dependence Code(s): F10.20 - ALCOHOL DEPENDENCE, UNCOMPLICATED (4) HTN (hypertension) Code(s): I10 - ESSENTIAL (PRIMARY) HYPERTENSION Qualifiers: Hypertension type: essential hypertension Qualified Code(s): I10 - Essential (primary) hypertension
[2019-01-31] MEDS ORDERED: METHADONE HCL 40 MG DISPERSABLE TABLET ONE (05:09)
[2019-01-31] MEDS ORDERED: METHADONE HCL 10 MG TABLET ONE (05:10)
[2019-01-31] MEDS: clonazePAM 0.5 MG TABLET PO SCH ×3 (05:43→21:08)
[2019-01-31] MEDS: GABAPENTIN 300 MG CAPSULE (FP) PO SCH ×3 (05:43→21:08)
[2019-01-31] MEDS: METHADONE 40 MG, METHADONE 30 MG PO SCH (05:44)
[2019-01-31] MEDS: LORazepam 0.5 MG TABLET PO PRN ×5 (05:46→22:02)
[2019-01-31] MEDS: ACETAMINOPHEN 325 MG TABLET (FP) PO PRN (06:38)
[2019-01-31] MEDS ORDERED: MAG HYDROX/AL HYDROX/SIMETH -MYLANTA- ORAL SUSPENSION PO ONE ×2 (06:50→22:49)
[2019-01-31] MEDS ORDERED: MAG HYDROX/AL HYDROX/SIMETH 30 ML UNIT-DOSE CUP PO ONE ×3 (07:15→23:00)
[2019-01-31] MEDS ORDERED: PT OWN MED DRAWER 7, Y5N ONE (09:33)
[2019-01-31] MEDS: HEPARIN NA (PORCINE) 5,000 UNITS/ML 1ML VIAL SQ SCH ×2 (09:57→21:08)
[2019-01-31] MEDS: MULTIVITAMINS (DAILY MVI) TABLET (FP) PO SCH (09:57)
[2019-01-31] MEDS: PHENobarbital 30 MG TABLET PO SCH ×2 (09:57→21:08)
[2019-01-31] MEDS: QUEtiapine FUMARATE 200 MG TABLET PO SCH (09:57)
[2019-01-31] MEDS: PHENYTOIN NA EXTENDED 100 MG CAPSULE (FP) PO SCH (09:58)
[2019-01-31] MEDS: ASPIRIN 81 MG CHEWABLE TABLETS PO SCH (09:58)
[2019-01-31] MEDS: IBUPROFEN 400 MG TABLET (FP) PO PRN (09:58)
[2019-01-31] MEDS: buPROPion HCL 100 MG TABLET PO SCH ×2 (09:58→21:08)
--- NOTE | 2019-01-31 12:02 | PN ---
Progress Note (short form) - Note Progress Note: Patient continues to Verbalize Suicidal ideas, I will kill myself as soon as you Discharge me.Demanding multitude ofr Medications. Comes up with different medical conditions and demands new meds daily. REC: 1) continue with 1:1. 2) waiting transfer to a Psych facility.
--- NOTE | 2019-01-31 18:10 | PN ---
Progress Note, Physician - Current Medication List Current Medications: Active Medications Acetaminophen (Tylenol -) 650 mg PO Q6H PRN PRN Reason: NEED PAIN SCALE Last Admin: 01/31/19 06:38 Dose: 650 mg Aspirin (Asa -) 81 mg PO DAILY [facility] Last Admin: 01/31/19 09:58 Dose: 81 mg Bupropion HCl (Wellbutrin -) 100 mg PO BID [facility] Last Admin: 01/31/19 09:58 Dose: 100 mg Clonazepam (Klonopin -) 1 mg PO TID [facility] Last Admin: 01/31/19 13:29 Dose: 1 mg Gabapentin (Neurontin -) 300 mg PO TID [facility] Last Admin: 01/31/19 13:30 Dose: 300 mg Heparin Sodium (Porcine) (Heparin -) 5,000 unit SQ BID [facility] Last Admin: 01/31/19 09:57 Dose: 5,000 unit Ibuprofen (Motrin -) 400 mg PO Q4H PRN PRN Reason: FEVER Last Admin: 01/31/19 09:58 Dose: 400 mg Lorazepam (Ativan -) 0.5 mg PO Q4H PRN PRN Reason: AGITATION Last Admin: 01/31/19 17:57 Dose: 0.5 mg Melatonin (Melatonin) 5 mg PO HS PRN PRN Reason: INSOMNIA Last Admin: 01/30/19 21:11 Dose: 5 mg Methadone HCl 40 mg/ Methadone (HCl 30 mg) 70 mg PO DAILY@0600 [facility] Last Admin: 01/31/19 05:44 Dose: 70 mg Multivitamins/Minerals/Vitamin C (Tab-A-Vit -) 1 tab PO DAILY [facility] Last Admin: 01/31/19 09:57 Dose: 1 tab Phenobarbital (Phenobarbital -) 90 mg PO BID [facility] Last Admin: 01/31/19 09:57 Dose: 90 mg Phenytoin Sodium (Dilantin -) 300 mg PO DAILY [facility] Last Admin: 01/31/19 09:58 Dose: 300 mg Quetiapine Fumarate (Seroquel -) 400 mg PO DAILY [facility] Last Admin: 01/31/19 09:57 Dose: 400 mg - Objective Vital Signs: Vital Signs Temperature 98.4 F 01/31/19 14:00 Pulse Rate 60 01/31/19 14:00 Respiratory Rate 16 01/31/19 14:00 Blood Pressure 107/67 01/31/19 14:00 O2 Sat by Pulse Oximetry (%) 94 L 01/31/19 09:00 Constitutional: Yes: No Distress HENT: Yes: Atraumatic Neck: Yes: Supple Cardiovascular: Yes: Regular Rate and Rhythm Respiratory: Yes: CTA Bilaterally Gastrointestinal: Yes: Normal Bowel Sounds Extremities: Yes: WNL Neurological: Yes: Alert, Oriented Labs: CBC, BMP 01/27/19 15:00 01/27/19 15:00 INR, PTT INR 1.03 (0.83-1.09) 01/19/19 13:30 Problem List - Problems (1) Alcohol dependence Assessment/Plan: detox consult reviewed prn ativan for withdrawl dr acuña said patient completed detox Code(s): F10.20 - ALCOHOL DEPENDENCE, UNCOMPLICATED (2) Nicotine dependence Code(s): F17.200 - NICOTINE DEPENDENCE, UNSPECIFIED, UNCOMPLICATED (3) Opioid dependence Code(s): F11.20 - OPIOID DEPENDENCE, UNCOMPLICATED (4) Substance abuse Code(s): F19.10 - OTHER PSYCHOACTIVE SUBSTANCE ABUSE, UNCOMPLICATED (5) Substance-induced sleep disorder Code(s): F19.982 - OTH PSYCHOACTIVE SUBSTANCE USE, UNSP W SLEEP DISORDER (6) Seizure disorder Assessment/Plan: on seizure meds stable Code(s): G40.909 - EPILEPSY, UNSP, NOT INTRACTABLE, WITHOUT STATUS EPILEPTICUS (7) Bipolar disorder Assessment/Plan: awaiting bed at [place] Code(s): F31.9 - BIPOLAR DISORDER, UNSPECIFIED
[2019-01-31] MEDS: MELATONIN 5 MG TABLETS PO PRN (21:08)
[2019-01-31] MEDS ORDERED: MAG HYDROX/AL HYDROX/SIMETH 30 ML UNIT-DOSE CUP ONE (23:02)
[2019-02-01] MEDS ORDERED: METHADONE HCL 40 MG DISPERSABLE TABLET ONE (05:31)
[2019-02-01] MEDS ORDERED: METHADONE HCL 10 MG TABLET ONE (05:31)
[2019-02-01] MEDS: METHADONE 40 MG, METHADONE 30 MG PO SCH (06:34)
[2019-02-01] MEDS: GABAPENTIN 300 MG CAPSULE (FP) PO SCH ×3 (06:34→22:22)
[2019-02-01] MEDS: clonazePAM 0.5 MG TABLET PO SCH ×3 (06:34→22:23)
[2019-02-01] MEDS: LORazepam 0.5 MG TABLET PO PRN ×4 (06:35→21:34)
[2019-02-01] MEDS ORDERED: PT OWN MED DRAWER 7, Y5N ONE (10:01)
[2019-02-01] MEDS: QUEtiapine FUMARATE 200 MG TABLET PO SCH (10:07)
[2019-02-01] MEDS: PHENobarbital 30 MG TABLET PO SCH ×2 (10:07→22:22)
[2019-02-01] MEDS: buPROPion HCL 100 MG TABLET PO SCH ×2 (10:07→22:22)
[2019-02-01] MEDS: HEPARIN NA (PORCINE) 5,000 UNITS/ML 1ML VIAL SQ SCH ×2 (10:07→22:23)
[2019-02-01] MEDS: MAG HYDROX/AL HYDROX/SIMETH 30 ML UNIT-DOSE CUP PO PRN ×2 (10:07→19:53)
[2019-02-01] MEDS: ASPIRIN 81 MG CHEWABLE TABLETS PO SCH (10:07)
[2019-02-01] MEDS: PHENYTOIN NA EXTENDED 100 MG CAPSULE (FP) PO SCH (10:07)
[2019-02-01] MEDS: MULTIVITAMINS (DAILY MVI) TABLET (FP) PO SCH (10:07)
[2019-02-01] MEDS: ACETAMINOPHEN 325 MG TABLET (FP) PO PRN (15:06)
--- NOTE | 2019-02-01 15:34 | PN ---
Progress Note, Physician - Current Medication List Current Medications: Active Medications Acetaminophen (Tylenol -) 650 mg PO Q6H PRN PRN Reason: NEED PAIN SCALE Last Admin: 02/01/19 15:06 Dose: 650 mg Al Hydroxide/Mg Hydroxide (Mylanta Oral Suspension -) 30 ml PO Q6H PRN PRN Reason: INDIGESTION Last Admin: 02/01/19 10:07 Dose: 30 ml Aspirin (Asa -) 81 mg PO DAILY [facility] Last Admin: 02/01/19 10:07 Dose: 81 mg Bupropion HCl (Wellbutrin -) 100 mg PO BID [facility] Last Admin: 02/01/19 10:07 Dose: 100 mg Clonazepam (Klonopin -) 1 mg PO TID [facility] Last Admin: 02/01/19 15:07 Dose: 1 mg Gabapentin (Neurontin -) 300 mg PO TID [facility] Last Admin: 02/01/19 15:07 Dose: 300 mg Heparin Sodium (Porcine) (Heparin -) 5,000 unit SQ BID [facility] Last Admin: 02/01/19 10:07 Dose: 5,000 unit Ibuprofen (Motrin -) 400 mg PO Q4H PRN PRN Reason: FEVER Last Admin: 01/31/19 09:58 Dose: 400 mg Lorazepam (Ativan -) 0.5 mg PO Q4H PRN PRN Reason: AGITATION Last Admin: 02/01/19 11:03 Dose: 0.5 mg Melatonin (Melatonin) 5 mg PO HS PRN PRN Reason: INSOMNIA Last Admin: 01/31/19 21:08 Dose: 5 mg Methadone HCl 40 mg/ Methadone (HCl 30 mg) 70 mg PO DAILY@0600 [facility] Last Admin: 02/01/19 06:34 Dose: 70 mg Multivitamins/Minerals/Vitamin C (Tab-A-Vit -) 1 tab PO DAILY [facility] Last Admin: 02/01/19 10:07 Dose: 1 tab Phenobarbital (Phenobarbital -) 90 mg PO BID [facility] Last Admin: 02/01/19 10:07 Dose: 90 mg Phenytoin Sodium (Dilantin -) 300 mg PO DAILY [facility] Last Admin: 02/01/19 10:07 Dose: 300 mg Quetiapine Fumarate (Seroquel -) 400 mg PO DAILY [facility] Last Admin: 02/01/19 10:07 Dose: 400 mg - Objective Vital Signs: Vital Signs Temperature 98.4 F 10/08/19 15:04 Pulse Rate 62 02/01/19 15:04 Respiratory Rate 17 02/01/19 15:04 Blood Pressure 108/64 02/01/19 15:04 O2 Sat by Pulse Oximetry (%) 94 L 01/31/19 21:00 Constitutional: Yes: No Distress HENT: Yes: Atraumatic Neck: Yes: Supple Cardiovascular: Yes: Regular Rate and Rhythm Respiratory: Yes: CTA Bilaterally Gastrointestinal: Yes: Normal Bowel Sounds Extremities: Yes: WNL Edema: No Peripheral Pulses WNL: Yes Neurological: Yes: Alert Labs: CBC, BMP 01/27/19 15:00 01/27/19 15:00 INR, PTT INR 1.03 (0.83-1.09) 01/19/19 13:30 Problem List - Problems (1) Alcohol dependence Assessment/Plan: detox consult reviewed prn ativan for withdrawl dr acuña said patient completed detox Code(s): F10.20 - ALCOHOL DEPENDENCE, UNCOMPLICATED (2) Nicotine dependence Code(s): F17.200 - NICOTINE DEPENDENCE, UNSPECIFIED, UNCOMPLICATED (3) Opioid dependence Code(s): F11.20 - OPIOID DEPENDENCE, UNCOMPLICATED (4) Substance abuse Code(s): F19.10 - OTHER PSYCHOACTIVE SUBSTANCE ABUSE, UNCOMPLICATED (5) Substance-induced sleep disorder Code(s): F19.982 - OTH PSYCHOACTIVE SUBSTANCE USE, UNSP W SLEEP DISORDER (6) Seizure disorder Assessment/Plan: on seizure meds stable Code(s): G40.909 - EPILEPSY, UNSP, NOT INTRACTABLE, WITHOUT STATUS EPILEPTICUS (7) Bipolar disorder Assessment/Plan: awaiting bed at [facility] Code(s): F31.9 - BIPOLAR DISORDER, UNSPECIFIED Assessment/Plan no acute medical issues at this point besides what is under problem list vital signs stable
[2019-02-01] MEDS: MELATONIN 5 MG TABLETS PO PRN (22:22)
[2019-02-02] MEDS: LORazepam 0.5 MG TABLET PO PRN ×4 (05:29→20:35)
[2019-02-02] MEDS ORDERED: METHADONE HCL 40 MG DISPERSABLE TABLET ONE (05:58)
[2019-02-02] MEDS ORDERED: METHADONE HCL 10 MG TABLET ONE (05:59)
[2019-02-02] MEDS: METHADONE 40 MG, METHADONE 30 MG PO SCH (06:10)
[2019-02-02] MEDS: clonazePAM 0.5 MG TABLET PO SCH ×3 (06:11→21:25)
[2019-02-02] MEDS: GABAPENTIN 300 MG CAPSULE (FP) PO SCH ×3 (06:11→21:25)
[2019-02-02] MEDS: MAG HYDROX/AL HYDROX/SIMETH 30 ML UNIT-DOSE CUP PO PRN ×2 (06:54→15:22)
[2019-02-02] MEDS ORDERED: PT OWN MED DRAWER 7, Y5N ONE (08:57)
[2019-02-02] MEDS: PHENYTOIN NA EXTENDED 100 MG CAPSULE (FP) PO SCH (09:28)
[2019-02-02] MEDS: buPROPion HCL 100 MG TABLET PO SCH ×2 (09:28→21:25)
[2019-02-02] MEDS: MULTIVITAMINS (DAILY MVI) TABLET (FP) PO SCH (09:28)
[2019-02-02] MEDS: ASPIRIN 81 MG CHEWABLE TABLETS PO SCH (09:28)
[2019-02-02] MEDS: QUEtiapine FUMARATE 200 MG TABLET PO SCH (09:29)
[2019-02-02] MEDS: PHENobarbital 30 MG TABLET PO SCH ×2 (09:29→21:25)
[2019-02-02] MEDS: HEPARIN NA (PORCINE) 5,000 UNITS/ML 1ML VIAL SQ SCH ×2 (09:29→21:26)
--- NOTE | 2019-02-02 12:46 | PN ---
Progress Note, Physician - Current Medication List Current Medications: Active Medications Acetaminophen (Tylenol -) 650 mg PO Q6H PRN PRN Reason: NEED PAIN SCALE Last Admin: 02/01/19 15:06 Dose: 650 mg Al Hydroxide/Mg Hydroxide (Mylanta Oral Suspension -) 30 ml PO Q6H PRN PRN Reason: INDIGESTION Last Admin: 02/02/19 06:54 Dose: 30 ml Aspirin (Asa -) 81 mg PO DAILY [facility] Last Admin: 02/02/19 09:28 Dose: 81 mg Bupropion HCl (Wellbutrin -) 100 mg PO BID [facility] Last Admin: 02/02/19 09:28 Dose: 100 mg Clonazepam (Klonopin -) 1 mg PO TID [facility] Last Admin: 02/02/19 06:11 Dose: 1 mg Gabapentin (Neurontin -) 300 mg PO TID [facility] Last Admin: 02/02/19 06:11 Dose: 300 mg Heparin Sodium (Porcine) (Heparin -) 5,000 unit SQ BID [facility] Last Admin: 02/02/19 09:29 Dose: 5,000 unit Ibuprofen (Motrin -) 400 mg PO Q4H PRN PRN Reason: FEVER Last Admin: 01/31/19 09:58 Dose: 400 mg Lorazepam (Ativan -) 0.5 mg PO Q4H PRN PRN Reason: AGITATION Last Admin: 02/02/19 10:17 Dose: 0.5 mg Melatonin (Melatonin) 5 mg PO HS PRN PRN Reason: INSOMNIA Last Admin: 02/01/19 22:22 Dose: 5 mg Methadone HCl 40 mg/ Methadone (HCl 30 mg) 70 mg PO DAILY@0600 [facility] Last Admin: 02/02/19 06:10 Dose: 70 mg Multivitamins/Minerals/Vitamin C (Tab-A-Vit -) 1 tab PO DAILY [facility] Last Admin: 02/02/19 09:28 Dose: 1 tab Phenobarbital (Phenobarbital -) 90 mg PO BID [facility] Last Admin: 02/02/19 09:29 Dose: 90 mg Phenytoin Sodium (Dilantin -) 300 mg PO DAILY [facility] Last Admin: 02/02/19 09:28 Dose: 300 mg Quetiapine Fumarate (Seroquel -) 400 mg PO DAILY [facility] Last Admin: 02/02/19 09:29 Dose: 400 mg - Objective Vital Signs: Vital Signs Temperature 97.9 F 1009/19 08:43 Pulse Rate 67 02/02/19 08:43 Respiratory Rate 18 02/02/19 08:43 Blood Pressure 105/67 02/02/19 08:43 O2 Sat by Pulse Oximetry (%) 94 L 02/01/19 21:00 Constitutional: Yes: Calm HENT: Yes: Atraumatic Neck: Yes: Supple Cardiovascular: Yes: Regular Rate and Rhythm Respiratory: Yes: CTA Bilaterally Gastrointestinal: Yes: Normal Bowel Sounds Extremities: Yes: WNL Edema: No Neurological: Yes: Alert, Oriented Labs: CBC, BMP 01/27/19 15:00 01/27/19 15:00 INR, PTT INR 1.03 (0.83-1.09) 01/19/19 13:30 Problem List - Problems (1) Alcohol dependence Assessment/Plan: detox consult reviewed prn ativan for withdrawl dr acuña said patient completed detox Code(s): F10.20 - ALCOHOL DEPENDENCE, UNCOMPLICATED (2) Nicotine dependence Code(s): F17.200 - NICOTINE DEPENDENCE, UNSPECIFIED, UNCOMPLICATED (3) Opioid dependence Code(s): F11.20 - OPIOID DEPENDENCE, UNCOMPLICATED (4) Substance abuse Code(s): F19.10 - OTHER PSYCHOACTIVE SUBSTANCE ABUSE, UNCOMPLICATED (5) Substance-induced sleep disorder Code(s): F19.982 - OTH PSYCHOACTIVE SUBSTANCE USE, UNSP W SLEEP DISORDER (6) Seizure disorder Assessment/Plan: on seizure meds stable Code(s): G40.909 - EPILEPSY, UNSP, NOT INTRACTABLE, WITHOUT STATUS EPILEPTICUS (7) Bipolar disorder Assessment/Plan: awaiting bed at [facility] Code(s): F31.9 - BIPOLAR DISORDER, UNSPECIFIED
[2019-02-02] MEDS: ACETAMINOPHEN 325 MG TABLET (FP) PO PRN (18:24)
[2019-02-02] MEDS: MELATONIN 5 MG TABLETS PO PRN (21:25)
[2019-02-02] MEDS: IBUPROFEN 400 MG TABLET (FP) PO PRN (22:14)
[2019-02-03] MEDS ORDERED: METHADONE HCL 40 MG DISPERSABLE TABLET ONE (05:51)
[2019-02-03] MEDS ORDERED: METHADONE HCL 10 MG TABLET ONE (05:52)
[2019-02-03] MEDS: GABAPENTIN 300 MG CAPSULE (FP) PO SCH ×2 (06:02→14:40)
[2019-02-03] MEDS: METHADONE 40 MG, METHADONE 30 MG PO SCH (06:02)
[2019-02-03] MEDS: clonazePAM 0.5 MG TABLET PO SCH ×2 (06:02→14:40)
[2019-02-03] MEDS: ACETAMINOPHEN 325 MG TABLET (FP) PO PRN (07:39)
[2019-02-03] MEDS: LORazepam 0.5 MG TABLET PO PRN ×2 (07:40→12:10)
[2019-02-03] MEDS: buPROPion HCL 100 MG TABLET PO SCH (11:03)
[2019-02-03] MEDS: PHENYTOIN NA EXTENDED 100 MG CAPSULE (FP) PO SCH (11:03)
[2019-02-03] MEDS: HEPARIN NA (PORCINE) 5,000 UNITS/ML 1ML VIAL SQ SCH (11:03)
[2019-02-03] MEDS: PHENobarbital 30 MG TABLET PO SCH (11:04)
[2019-02-03] MEDS: MULTIVITAMINS (DAILY MVI) TABLET (FP) PO SCH (11:04)
[2019-02-03] MEDS: ASPIRIN 81 MG CHEWABLE TABLETS PO SCH (11:04)
[2019-02-03] MEDS ORDERED: PT OWN MED DRAWER 7, Y5N ONE (11:06)
[2019-02-03] MEDS: QUEtiapine FUMARATE 200 MG TABLET PO SCH (11:06)
[2019-02-03] MEDS: IBUPROFEN 400 MG TABLET (FP) PO PRN (12:10)
--- NOTE | 2019-02-03 14:42 | PN ---
Progress Note (short form) - Note Progress Note: Patient seen for Psych follow up.No reports of any suicidal behaviour or self damaging behaviour reported by staff. MS: alert, oriented, not hallucinating, denies any suicidal thoughts or Plans. Not Psychotic at this time. Cognition is intact. REC: 1) No need for In Patient Psych at this time. 2) He can sign out AMA. 3) Patient refuses REhab, wants Ativan and Klonapin at the REhab. 4) d/c 1:!.
[2019-02-03] MEDS: MAG HYDROX/AL HYDROX/SIMETH 30 ML UNIT-DOSE CUP PO PRN (15:20)
[2019-02-03 15:26] VITALS: BP 119/72; PULSE 76; TEMP 98.2
--- NOTE | 2019-02-03 17:08 | DS ---
Physical Examination Vital Signs: Vital Signs Temperature 98.2 F 02/03/19 14:25 Pulse Rate 76 02/03/19 14:25 Respiratory Rate 15 02/03/19 14:25 Blood Pressure 119/72 02/03/19 14:25 O2 Sat by Pulse Oximetry (%) 95 02/03/19 09:00 Labs: CBC, BMP 01/27/19 15:00 01/27/19 15:00 Discharge Summary Problems reviewed: Yes Reason For Visit: SEIZURE DISORDER Condition: Fair - Instructions Diet, Activity, Other Instructions: fu with neurologist as out patient Referrals: Dany Manley DO [Staff Physician] - Disposition: AGAINST MEDICAL ADVICE - Home Medications Comprehensive Discharge Medication List: Ambulatory Orders Bupropion HCl [Wellbutrin -] 100 mg PO BID 01/04/19 Gabapentin [Neurontin -] 300 mg PO Q8H 01/04/19 Phenobarbital 100 mg PO BID 01/04/19 Quetiapine Fumarate [Seroquel -] 400 mg PO DAILY [facility] 200 mg 01/04/19 Aspirin 81 mg PO DAILY 01/19/19 Benztropine Mesylate [Cogentin -] 0.5 mg PO BID 01/19/19 Clonazepam [Klonopin] 1 mg PO TID 01/19/19 Gabapentin [Neurontin] 300 mg PO TID 01/19/19 Haloperidol [Haldol -] 5 mg PO DAILY 01/19/19 Methylphenidate HCl [Methylphenidate ER] 10 mg PO BID 01/19/19 Methadone [Dolophine -] 30 mg PO DAILY 01/20/19 Methadone [Dolophine -] 40 mg PO DAILY 01/20/19 [facility]
== END 2019-02-03 16:36 | disposition left against medical advice (07) | DRG 58 ==
LOC: SUPCPDRO 12:51 → JER 12:51 → JERBED 14:55 → J4W 01-20 14:23 → JICU 01-20 18:43 → J4S 01-25 16:34
PROVIDERS: ADMIT Internal Medicine; ATTEND Internal Medicine
DX: G93.89 Other specified disorders of brain (principal); F19.230 Other psychoactive substance dependence with withdrawal, uncomplicated; G40.909 Epilepsy, unspecified, not intractable, without status epilepticus; F14.20 Cocaine dependence, uncomplicated; F11.20 Opioid dependence, uncomplicated; F10.20 Alcohol dependence, uncomplicated; F12.20 Cannabis dependence, uncomplicated; B19.20 Unspecified viral hepatitis C without hepatic coma; K74.60 Unspecified cirrhosis of liver; F17.210 Nicotine dependence, cigarettes, uncomplicated; F31.9 Bipolar disorder, unspecified; E66.9 Obesity, unspecified; Z68.31 Body mass index [BMI] 31.0-31.9, adult; J45.909 Unspecified asthma, uncomplicated; Z22.7 Latent tuberculosis
CPT/HCPCS: 36415; 70450-TC; 72125-TC; 80048; 80053; 80184; 80185; 80307; 81003; 82550; 82962; 83605; 83690; 83735; 84100; 84484; 85025; 85027; 85610; 85730; 87086; 93005; 93010; 99285-25; J1644; J7030